=== PATIENT | female | born 1955 | race Caucasian/White ===

== ENCOUNTER 2017-01-21 17:03 | Inpatient (IN) ==
--- NOTE | 2017-01-21 17:18 | Emergency Department Note ---
Disposition Clinical Impression: Chest pain Disposition: Still a Patient Condition: Good Referrals: Tara Maciel CNP [Primary Care Provider] - Chest Pain HPI - General Stated Complaint: chest pain Time Seen by Provider: 01/21/17 17:12 Vital Signs Reviewed: Yes Nursing Notes Reviewed: Yes - History of Present Illness HPI Narrative: She comes in complaining of chest pain progressively getting worse. Patient has shortness of breath and feels the pain is radiating to her back. Patient patient states that she feels as his symptoms are worsening. Patient does not have primary care physician follow-up for this problem. Patient patient denies prior history of radiation of the pain. She feels a the characteristics of the chest pain or change in for she has had the past. Patient denies dizziness denies vision changes. Patient denies headache associated. Patient denies any aggravating alleviating factor besides the chest pain with deep inspiration. - Related Data Home Medications Medication Instructions Recorded Confirmed Advair 500-50 Diskus 07/26/15 07/26/15 Aspirin 07/26/15 07/26/15 B Complex & C No.20/Folic Acid 07/26/15 07/26/15 Baclofen 07/26/15 07/26/15 Bee Tabs 07/26/15 07/26/15 Flonase 07/26/15 07/26/15 Ibuprofen 07/26/15 07/26/15 Ketorolac 07/26/15 07/26/15 Lidoderm 07/26/15 07/26/15 Lisinopril 07/26/15 07/26/15 Loratadine 07/26/15 07/26/15 Meclizine 07/26/15 07/26/15 Meloxicam 07/26/15 07/26/15 Tylenol 07/26/15 07/26/15 Zolmitriptan 07/26/15 07/26/15 Previous Rx's Medication Instructions Recorded Promethazine [Phenergan] 25 mg PO Q8HR PRN #12 tablet 07/26/15 Benzonatate [Tessalon] 200 mg PO TID PRN #30 capsule 02/27/16 GuaiFENesin ER [Mucinex] 1,200 mg PO BID #20 tbbp.12hr 02/27/16 Azithromycin [Zithromax] 1 applic PO DAILY #6 tablet 12/26/16 Fluconazole [Diflucan] 150 mg PO DAILY #1 tab 12/26/16 Allergies Allergy/AdvReac Type Severity Reaction Status Date / Time calcium [From DHEA] Allergy Hives Verified 02/13/16 19:00 calcium carbonate [From DHEA] Allergy Hives Verified 02/13/16 19:00 prasterone (DHEA) [From DHEA] Allergy Hives Verified 02/13/16 19:00 prochlorperazine Allergy Hives Verified 02/13/16 19:00 [From Compazine] sumatriptan [From Imitrex] Allergy Hives Verified 02/13/16 19:00 All systems ED: reviewed and negative except as stated. Chest Pain PMH - Past Medical History Medical history: Reports: other Surgical history: Reports: no surgical history Psychiatric history: Reports: no psych history ENGINE BUILDER history: Reports: no ENGINE BUILDER history - Social History Smoking Status: Never smoker Alcohol use: Reports: none Drug use: Reports: none Physical Exam - General Limitations: no limitations General appearance: alert, in no apparent distress - Head Head exam: atraumatic, normocephalic, normal inspection - Eye Eye exam: Present: normal appearance, PERRL, EOMI - ENT ENT exam: normal exam, normal oropharynx, mucous membranes moist - Neck Neck exam: Present: normal inspection, full ROM, trachea midline - Chest Chest inspection: Present: normal inspection, symmetric chest wall rise - Respiratory Respiratory exam: Present: wheezes (Mild diffuse wheeze. No increased work of breathing noted.) - Cardiovascular Cardiovascular exam: Present: regular rate, normal rhythm, normal heart sounds - Abdominal Exam Abdominal exam: Present: soft, Non-Tender. Absent: tenderness, distention, guarding, rebound, rigidity - Extremities Exam Extremities exam: Present: normal inspection, full ROM. Absent: tenderness, pedal edema - Back Exam Back exam: Present: normal inspection, full ROM. Absent: tenderness - Neurological Exam Neurological exam: Present: alert, oriented X3 - Psychiatric Psychiatric exam: Present: normal affect, normal mood - Skin Skin exam: Present: warm, dry, intact, normal color Course Course Narrative: Awaiting results the CTA chest. If negative will admit to hospital service for chest pain. Vital Signs Temperature 98.7 F 01/21/17 17:15 Pulse Rate 85 01/21/17 17:15 Respiratory Rate 16 01/21/17 17:15 Blood Pressure 172/99 01/21/17 17:15 O2 Sat by Pulse Oximetry 96 01/21/17 17:15 Temperature 98.7 F 01/21/17 17:15 Pulse Rate 80 01/21/17 17:59 Respiratory Rate 18 01/21/17 18:11 Blood Pressure 122/83 01/21/17 17:59 O2 Sat by Pulse Oximetry 95 01/21/17 18:11 Oxygen Delivery Oxygen Delivery Nasal Cannula Chest Pain - Differential Diagnosis Likely: pneumothorax, unstable angina pectoris, atypical chest pain, st elevation myocardial infraction, chest pain - Lab Data Lab results reviewed: Yes I reviewed the patient's lab results. Result diagrams: 01/21/17 17:47 01/21/17 17:47 Lab Results 01/21/17 01/21/17 01/21/17 Range/Units 17:47 17:47 17:47 WBC 10.5 (4.3-11.1) K/mcL RBC 4.82 (3.82-4.97) M/mcL Hgb 14.9 (11.5-15.4) g/dL Hct 45.3 H (35.3-44.9) % MCV 94.0 (83.0-100.0) fL MCH 30.9 (28.0-33.3) pg MCHC 32.9 (31.6-35.5) g/dL RDW 13.6 (11.5-14.5) % Plt Count 362 (140-400) K/mcL MPV 10.1 (9.4-12.4) fL Immature Gran % 0.4 (0-4) % Seg Neutrophils % 78.4 % Lymphocytes % 14.0 % Monocytes % 5.7 % Eosinophils % 1.0 % Basophils % 0.5 % Neutrophils # 8.2 (1.6-8.9) K/mcL Lymphocytes # 1.5 (0.6-4.6) K/mcL Monocytes # 0.6 (0.0-1.3) K/mcL Eosinophils # 0.1 (0.0-0.6) K/mcL Basophils # 0.1 (0.0-0.2) K/mcL D-Dimer (0-500) ng/mLFEU Sodium 142 (136-145) mEq/L Potassium 4.0 (3.5-4.5) mEq/L Chloride 108 (98-109) mEq/L Carbon Dioxide 24 (19-29) mEq/L BUN 16 (7-20) mg/dL Creatinine 0.83 (0.57-1.11) mg/dL Est GFR ( Amer) > 60 (> 60) Est GFR (Non-Af Amer) > 60 (> 60) BUN/Creatinine Ratio 19 (6-26) Glucose 93 (70-99) mg/dL Calculated Osmolality 295 (280-300) Calcium 9.2 (8.6-10.8) mg/dL Total Bilirubin 0.6 (0.2-1.2) mg/dL AST 17 (5-34) Units/L ALT 20 (0-55) Units/L Alkaline Phosphatase 84 (38-126) Units/L Troponin I 0.00 (0-0.03) ng/mL Serum Total Protein 7.1 (6.0-8.3) g/dL Albumin 3.3 L (3.5-5.0) g/dL Globulin 3.8 H (2.4-3.5) g/dL Albumin/Globulin Ratio 0.9 L (1.1-2.2) 01/21/ Range/Units 17:47 WBC (4.3-11.1) K/mcL RBC (3.82-4.97) M/mcL Hgb (11.5-15.4) g/dL Hct (35.3-44.9) % MCV (83.0-100.0) fL MCH (28.0-33.3) pg MCHC (31.6-35.5) g/dL RDW (11.5-14.5) % Plt Count (140-400) K/mcL MPV (9.4-12.4) fL Immature Gran % (0-4) % Seg Neutrophils % % Lymphocytes % % Monocytes % % Eosinophils % % Basophils % % Neutrophils # (1.6-8.9) K/mcL Lymphocytes # (0.6-4.6) K/mcL Monocytes # (0.0-1.3) K/mcL Eosinophils # (0.0-0.6) K/mcL Basophils # (0.0-0.2) K/mcL D-Dimer 610 H (0-500) ng/mLFEU Sodium (136-145) mEq/L Potassium (3.5-4.5) mEq/L Chloride (98-109) mEq/L Carbon Dioxide (19-29) mEq/L BUN (7-20) mg/dL Creatinine (0.57-1.11) mg/dL Est GFR ( Amer) (> 60) Est GFR (Non-Af Amer) (> 60) BUN/Creatinine Ratio (6-26) Glucose (70-99) mg/dL Calculated Osmolality (280-300) Calcium (8.6-10.8) mg/dL Total Bilirubin (0.2-1.2) mg/dL AST (5-34) Units/L ALT (0-55) Units/L Alkaline Phosphatase (38-126) Units/L Troponin I (0-0.03) ng/mL Serum Total Protein (6.0-8.3) g/dL Albumin (3.5-5.0) g/dL Globulin (2.4-3.5) g/dL Albumin/Globulin Ratio (1.1-2.2) - Radiology Data Radiology results reviewed: Yes I reviewed the patient's radiology results. Chest X-Ray 01/21/17 17:17 IMPRESSION: 1. No acute cardiopulmonary disease. D/ / Asif De Leon MD / Asif De Leon MD Interpreting Provider: Asif De Leon MD chest is pending. - EKG Data EKG attestation: Yes I reviewed and interpreted this EKG. EKG shows normal: sinus rhythm Rate: normal Rhythm: NSR
[2017-01-21] MEDS ORDERED: methylPREDNISolone 125 MG/2 ML VIAL IV ONE (17:50)
[2017-01-21] MEDS ORDERED: Ipratropium/Albuterol Neb 3 ML IH ONE (17:50)
[2017-01-21 17:57] LABS: Basophils # 0.1 K/mcL (0.0-0.2); Basophils % 0.5 %; Eosinophils # 0.1 K/mcL (0.0-0.6); Hematocrit 45.3 % (35.3-44.9); Hemoglobin 14.9 g/dL (11.5-15.4); Immature Granulocytes % 0.4 % (0-4); Lymphocytes # 1.5 K/mcL (0.6-4.6); Mean Corpuscular HGB Conc 32.9 g/dL (31.6-35.5); Mean Corpuscular Hemoglobin 30.9 pg (28.0-33.3); Mean Platelet Volume 10.1 fL (9.4-12.4); Monocytes # 0.6 K/mcL (0.0-1.3); Monocytes % 5.7 %; Neutrophils # 8.2 K/mcL (1.6-8.9); Platelet Count 362 K/mcL (140-400); Red Blood Count 4.82 M/mcL (3.82-4.97); Red Cell Distribution Width 13.6 % (11.5-14.5); Segmented Neutrophils % 78.4 %
[2017-01-21 18:12] LABS: Alanine Aminotransferase 20 Units/L (0-55); Albumin 3.3 g/dL (3.5-5.0); Albumin/Globulin Ratio 0.9 (1.1-2.2); Alkaline Phosphatase 84 Units/L (38-126); Aspartate Amino Transferase 17 Units/L (5-34); BUN/Creatinine Ratio 19 (6-26); Bilirubin,Total 0.6 mg/dL (0.2-1.2); Blood Urea Nitrogen 16 mg/dL (7-20); Calcium 9.2 mg/dL (8.6-10.8); Carbon Dioxide 24 mEq/L (19-29); Chloride 108 mEq/L (98-109); Globulin 3.8 g/dL (2.4-3.5); Glucose 93 mg/dL (70-99); Osmolality,Calculated 295 (280-300); Sodium 142 mEq/L (136-145); Total Protein 7.1 g/dL (6.0-8.3); eGFR For African Americans > 60 (> 60); eGFR For Non-African Americans > 60 (> 60)
[2017-01-21] MEDS ORDERED: *HR* Morphine 2 MG/ML SYRINGE IV ONE (20:38)
--- NOTE | 2017-01-21 21:52 | Emergency Department Note ---
START Narrative - START START: Patient is a 61-year-old female who is being admitted for chest pain this evening. Patient had a CT chest results pending at the end of Dr. Darya jon and asked me to follow-up on the results and inform the patient. CT chest results interpreted by radiology was negative for PE but does show some left lower lobe atelectasis suspicious for mucous plugging. I did inform the patient at bedside of her CT results and that we will proceed with admission for further evaluation of her chest pain. Patient is currently resting comfortably with stable vital signs and asymptomatic at this time.
[2017-01-21] MEDS ORDERED: Albuterol 2.5 MG/3 ML NEBULIZER IH PRN (23:12)
[2017-01-21] MEDS ORDERED: Nicotine 21 MG PATCH.TD24 TD PRN (23:12)
[2017-01-21] MEDS ORDERED: Benzonatate 100 MG CAPSULE PO PRN (23:12)
[2017-01-21] MEDS ORDERED: Naloxone 0.4 MG/ML INJ IVP PRN (23:12)
[2017-01-21] MEDS ORDERED: *HR* Promethazine 25 MG/ML VIAL IVP PRN (23:21)
--- NOTE | 2017-01-21 23:28 | Internal Med History&Physical ---
Date of Encounter: 01/21/17 Time of Encounter: 23:00 Assessment and Plan (1) Chest pain, rule out acute myocardial infarction Status: Acute . (2) Chest pain with low risk of acute coronary syndrome Status: Acute . (3) Acute chest wall pain Status: Acute . (4) Atelectasis of left lung Status: Acute . (5) Mucus plugging of bronchi Status: Resolved . (6) Morbid obesity with BMI of 40.0-44.9, adult Status: Chronic . (7) DARCIE (obstructive sleep apnea) Status: Chronic . (8) Acute respiratory failure with hypoxia Status: Acute . (9) Discoid atelectasis Status: Acute . (10) Acute bronchitis and bronchiolitis Status: Acute . Internal Medicine - H&P: HPI Chief complaint: Chest pain Admitted From: Emergency Dept Plans for Post Hospital Care: Home History of present illness: Ms. Pastor is a 61 year old female is admitted with chief complaint of acute chest pain beginning the evening of presentation. She completed the CTA with rule out of pulmonary embolus as a source for her pain following negative troponin and EKG findings. CT however did not reveal evidence of left lower lobe atelectasis suspicious for mucous plugging and possible superimposed infection." The pain is progressively worsening with radiation into the back. Denies any specific exacerbating or alleviating factors. No evidence for hemoptysis reported. Audible wheezing has been noted. Additional findings noted to have reactive hypertension. CBC with differential, comprehensive metabolic panel, troponin measurement were benign. D-dimer was 610. EKG normal sinus rhythm. Patient will be admitted to undergo further evaluation and disposition. Past Med Surg Social Fam HX - Past Medical History Source: old records reviewed Medical history: arthritis (Chronic back pain), asthma, COPD (DARCIE), GERD, hypertension, migraine, other (Allergic rhinitis. Irritable bowel syndrome; chronic constipation.) Psychiatric history: anxiety, depression, other - Past Surgical History Surgical History: appendectomy, cholecystectomy, herniorrhaphy, hysterectomy, sinus surgery (Nasal surgery.), FER/BSO, other - Social History Smoking Status: Current some day smoker Packs per day: ~38pk-yrs Smokeless Tobacco Status: No Alcohol use: none Drug use: none Occupational status: unemployed Current living situation: Home, With Family Activity Level: Independent ambulation, Mostly sedentary Recent Out of Country Travel Within the Last 8 Weeks: No Exposure or Possible Exposure to Illness During Travel: No - Family History Mother Hx Family Cardiac Disorders: Yes Hx Family Respiratory Disorders: Yes (copd) Internal Medicine - H&P: Meds Albuterol Sulfate [Ventolin Hfa] 2 puff IH Q4H PRN 01/21/17 [History] Baclofen [Lioresal] 10 mg PO TID 01/21/17 [History] Cyanocobalamin (Vitamin B-12) [Vitamin B12] 1,000 mcg PO DAILY 01/21/17 [History ] Diltiazem CD (24hr) [Cardizem CD] 180 mg PO DAILY 01/21/17 [History] Escitalopram [Lexapro] 10 mg PO DAILY 01/21/17 [History] Fluticasone Propionate Nasal [Flonase] 50 mcg NS DAILY 01/21/17 [History] Fluticasone/Salmeterol [Advair 500-50 Diskus] 1 each IH BID 01/21/17 [History] Lidocaine Patch [Lidoderm 5% patch] 1 each TP DAILY 01/21/17 [History] Linaclotide [Linzess] 290 mcg PO QAM 01/21/17 [History] Lisinopril [Zestril] 10 mg PO DAILY 01/21/17 [History] Loratadine [Claritin] 10 mg PO DAILY 01/21/17 [History] Meloxicam 7.5 mg PO DAILY 01/21/17 [History] Montelukast [Singulair] 10 mg PO HS 01/21/17 [History] Multivitamin [Multi-Day Vitamins] 1 each PO DAILY 01/21/17 [History] Omeprazole [PriLOSEC] 20 mg PO DAILY 01/21/17 [History] Pravastatin Sodium [Pravachol] 40 mg PO HS 01/21/17 [History] Promethazine [Phenergan] 25 mg PO Q6H PRN 01/21/17 [History] Promethazine [Phenergan] 25 mg RC Q8H PRN 01/21/17 [History] Psyllium Husk [Daily Fiber] 1.56 gm PO BID 01/21/17 [History] Temazepam [Restoril] 15 mg PO HS 01/21/17 [History] Tiotropium [Spiriva] 18 mcg IH QAM 01/21/17 [History] Zolmitriptan [Zomig] 2.5 mg PO DAILY PRN 01/21/17 [History] Benzonatate [Tessalon] 200 mg PO TID PRN #30 capsule 01/28/17 [Rx] Diazepam [Valium] 5 mg PO TID PRN #15 tablet 01/28/17 [Rx] GuaiFENesin ER [Mucinex] 600 mg PO BID #20 tbbp.12hr 01/28/17 [Rx] Levofloxacin 750 mg PO Q24H #12 tablet 01/28/17 [Rx] Oxycodone HCl 10 mg PO Q6H PRN #15 tab 01/28/17 [Rx] PredniSONE 10 mg PO DAILY #41 tablet 01/28/17 [Rx] Allergies calcium [From DHEA] Allergy (Verified 02/13/16 19:00) Hives calcium carbonate [From DHEA] Allergy (Verified 02/13/16 19:00) Hives prasterone (DHEA) [From DHEA] Allergy (Verified 02/13/16 19:00) Hives prochlorperazine [From Compazine] Allergy (Verified 02/13/16 19:00) Hives sumatriptan [From Imitrex] Allergy (Verified 02/13/16 19:00) Hives All Systems PM: A 10-system review of systems was performed and is negative for pertinent findings except as documented above in the HPI. - Constitutional Constitutional: as per HPI, no chills, no fever(s), no night sweats - EENT Eyes: as per HPI, no change in vision, no discharge, no pain, no photophobia Nose, mouth and throat: as per HPI, no dysphagia, no nasal discharge, no neck pain, no sore throat - Cardiovascular Cardiovascular ROS IM: as per HPI, chest pain, dyspnea, dyspnea on exertion, no claudication, no diaphoresis, no edema, no lightheadedness, no orthopnea, no palpitations, no paroxysmal nocturnal dyspnea, no syncope - Respiratory Respiratory: as per HPI, cough, dyspnea, dyspnea on exertion, pain on inspiration, chest congestion, pain with cough, no hemoptysis, no wheezing, no excessive phlegm production - Gastrointestinal Gastrointestinal: as per HPI, no abdominal pain, no diarrhea, no hematemesis, no hematochezia, no melena, no nausea, no vomiting - Genitourinary Genitourinary: as per HPI, no change in urinary stream, no dysuria, no flank pain, no hematuria Menstruation: as per HPI, post hysterectomy - Musculoskeletal Musculoskeletal ROS IM: as per HPI, back pain, no numbness, no tingling - Integumentary Integumentary IM: as per HPI, no rash, no unusual bruising - Neurological Neurological ROS: as per HPI, headache(s), other, no confusion, no convulsions, no focal weakness, no numbness, no tingling, no tremor(s) - Psychiatric Psychiatric: as per HPI - Endocrine Endocrine IM: as per HPI - Hematologic/Lymphatic Hematologic/Lymphatic: as per HPI, no easy bruising - Allergic/Immunologic Allergic/Immunologic: as per HPI - Constitutional Vitals: Temp Pulse Resp BP Pulse Ox 98.7 F 80 18 122/83 95 01/21/17 17:15 01/21/17 17:59 01/21/17 18:11 01/21/17 17:59 01/21/17 18:11 Vital Signs Temp Pulse Resp BP Pulse Ox 01/21/17 19:59 84 16 111/94 94 L 01/21/17 19:29 81 16 109/58 94 L 01/21/17 18:59 94 L 01/21/17 18:11 18 95 01/21/17 17:59 80 16 122/83 92 L 01/21/17 17:15 98.7 F 85 16 172/99 96 Intake and Output 01/21/17 01/21/17 01/21/17 07:59 15:59 23:59 Other: Weight 109.316 kg Patient Weight 01/21/17 23:59 Weight 109.316 kg Allergies Allergy/AdvReac Type Severity Reaction Status Date / Time calcium [From DHEA] Allergy Hives Verified 02/13/16 19:00 calcium carbonate [From DHEA] Allergy Hives Verified 02/13/16 19:00 prasterone (DHEA) [From DHEA] Allergy Hives Verified 02/13/16 19:00 prochlorperazine Allergy Hives Verified 02/13/16 19:00 [From Compazine] sumatriptan [From Imitrex] Allergy Hives Verified 02/13/16 19:00 General appearance: Present: mild distress, A&O X 3, morbidly obese - Head Head exam: Present: atraumatic, normocephalic - Eye Eye exam: Present: EOMI, PERRL, conjuntiva pink, sclera anicteric Pupils: Present: normal accommodation, PERRL - ENT ENT exam: Present: mucous membranes moist, normal oropharynx - Neck Neck exam general surgery: Present: supple, trachea midline. Absent: lymphadenopathy - Respiratory Respiratory exam: Present: chest wall tenderness, decreased breath sounds, wheezes. Absent: accessory muscle use, CTAB, rales, rhonchi - Cardiovascular Cardiovascular exam: Present: distant heart sounds, RRR, +S1, +S2. Absent: diastolic murmur, gallop, rubs, systolic murmur - GI/Abdominal GI/Abdominal exam: Present: normal bowel sounds, soft, no peritoneal signs. Absent: distended, tenderness - Extremities Exam Extremities exam: Present: warm, radial pulses palpable and symetrical. Absent : calf tenderness, cyanotic, pedal edema - Neurological Exam Neurological exam: Present: alert, CN II-XII intact, oriented X3, no focal deficits. Absent: pronater drift, facial droop, speech deficit - Psychiatric Psychiatric exam: Present: normal affect, normal mood - Skin Skin exam: Present: dry, intact Internal Med - H&P Results - Labs CBC & Chem 7: 01/28/17 02:54 01/27/17 04:00 Labs: Short CBC 01/21/17 Range/Units 17:47 WBC 10.5 (4.3-11.1) K/mcL Hgb 14.9 (11.5-15.4) g/dL Hct 45.3 H (35.3-44.9) % Plt Count 362 (140-400) K/mcL Neutrophils # 8.2 (1.6-8.9) K/mcL BMP 01/21/17 Range/Units 17:47 Sodium 142 (136-145) mEq/L Potassium 4.0 (3.5-4.5) mEq/L Chloride 108 (98-109) mEq/L Carbon Dioxide 24 (19-29) mEq/L BUN 16 (7-20) mg/dL Creatinine 0.83 (0.57-1.11) mg/dL Glucose 93 (70-99) mg/dL Calcium 9.2 (8.6-10.8) mg/dL Cardiac Enzymes 01/21/17 Range/Units 17:47 Troponin I 0.00 (0-0.03) ng/mL Liver Function 01/21/17 Range/Units 17:47 Total Bilirubin 0.6 (0.2-1.2) mg/dL AST 17 (5-34) Units/L ALT 20 (0-55) Units/L Alkaline Phosphatase 84 (38-126) Units/L Albumin 3.3 L (3.5-5.0) g/dL Abnormal lab results Hct 45.3 % (35.3-44.9) H 01/21/17 17:47 D-Dimer 610 ng/mLFEU (0-500) H 01/21/17 17:47 Albumin 3.3 g/dL (3.5-5.0) L 01/21/17 17:47 Globulin 3.8 g/dL (2.4-3.5) H 01/21/17 17:47 Albumin/Globulin Ratio 0.9 (1.1-2.2) L 01/21/17 17:47 Laboratory Results WBC 10.5 K/mcL (4.3-11.1) 01/21/17 17:47 RBC 4.82 M/mcL (3.82-4.97) 01/21/17 17:47 Hgb 14.9 g/dL (11.5-15.4) 01/21/17 17:47 Hct 45.3 % (35.3-44.9) H 01/21/17 17:47 MCV 94.0 fL (83.0-100.0) 01/21/17 17:47 MCH 30.9 pg (28.0-33.3) 01/21/17 17:47 MCHC 32.9 g/dL (31.6-35.5) 01/21/17 17:47 RDW 13.6 % (11.5-14.5) 01/21/17 17:47 Plt Count 362 K/mcL (140-400) 01/21/17 17:47 MPV 10.1 fL (9.4-12.4) 01/21/17 17:47 Immature Gran % 0.4 % (0-4) 01/21/17 17:47 Seg Neutrophils % 78.4 % 01/21/17 17:47 Lymphocytes % 14.0 % 01/21/17 17:47 Monocytes % 5.7 % 01/21/17 17:47 Eosinophils % 1.0 % 01/21/17 17:47 Basophils % 0.5 % 01/21/17 17:47 Neutrophils # 8.2 K/mcL (1.6-8.9) 01/21/17 17:47 Lymphocytes # 1.5 K/mcL (0.6-4.6) 01/21/17 17:47 Monocytes # 0.6 K/mcL (0.0-1.3) 01/21/17 17:47 Eosinophils # 0.1 K/mcL (0.0-0.6) 01/21/17 17:47 Basophils # 0.1 K/mcL (0.0-0.2) 01/21/17 17:47 D-Dimer 610 ng/mLFEU (0-500) H 01/21/17 17:47 Sodium 142 mEq/L (136-145) 01/21/17 17:47 Potassium 4.0 mEq/L (3.5-4.5) 01/21/17 17:47 Chloride 108 mEq/L (98-109) 01/21/17 17:47 Carbon Dioxide 24 mEq/L (19-29) 01/21/17 17:47 BUN 16 mg/dL (7-20) 01/21/17 17:47 Creatinine 0.83 mg/dL (0.57-1.11) 01/21/17 17:47 Est GFR ( Amer) > 60 (> 60) 01/21/17 17:47 Est GFR (Non-Af Amer) > 60 (> 60) 01/21/17 17:47 BUN/Creatinine Ratio 19 (6-26) 01/21/17 17:47 Glucose 93 mg/dL (70-99) 01/21/17 17:47 Calculated Osmolality 295 (280-300) 01/21/17 17:47 Calcium 9.2 mg/dL (8.6-10.8) 01/21/17 17:47 Total Bilirubin 0.6 mg/dL (0.2-1.2) 01/21/17 17:47 AST 17 Units/L (5-34) 01/21/17 17:47 ALT 20 Units/L (0-55) 01/21/17 17:47 Alkaline Phosphatase 84 Units/L (38-126) 01/21/17 17:47 Troponin I 0.00 ng/mL (0-0.03) 01/21/17 17:47 Serum Total Protein 7.1 g/dL (6.0-8.3) 01/21/17 17:47 Albumin 3.3 g/dL (3.5-5.0) L 01/21/17 17:47 Globulin 3.8 g/dL (2.4-3.5) H 01/21/17 17:47 Albumin/Globulin Ratio 0.9 (1.1-2.2) L 03 17:47 Impressions Chest X-Ray 01/21/17 17:17 IMPRESSION: 1. No acute cardiopulmonary disease. D/ / Asif De Leon MD / Asif De Leon MD Interpreting Provider: Asif De Leon MD Chest CTA 01/21/17 18:28 IMPRESSION: No evidence of pulmonary embolism. Lobar collapse of the left lower lobe, may be related to mucous plugging. Superimposed infection is difficult to exclude. Recommend follow-up to resolution and exclude endobronchial lesions. Discoid atelectasis at the bilateral lung bases. D/ / Shadi Gongora MD / Shadi Gongora MD Interpreting Provider: Shadi Gongora MD - Attending Attestation My signature below is to certify that this patient is under my care and that I, or nurse practitioner, or a physician's greenhouse assistant, or Resident Physician working with me, has had a [id number] encounter with this patient. Allergies calcium [From DHEA] Allergy (Verified 02/13/16 19:00) Hives calcium carbonate [From DHEA] Allergy (Verified 02/13/16 19:00) Hives prasterone (DHEA) [From DHEA] Allergy (Verified 02/13/16 19:00) Hives prochlorperazine [From Compazine] Allergy (Verified 02/13/16 19:00) Hives sumatriptan [From Imitrex] Allergy (Verified 02/13/16 19:00) Hives Home Medications Medication Instructions Recorded Confirmed Type Albuterol Sulfate [Ventolin Hfa] 2 puff IH Q4H PRN 01/21/17 01/21/17 History Baclofen [Lioresal] 10 mg PO TID 01/21/17 01/21/17 History Cyanocobalamin (Vitamin B-12) 1,000 mcg PO DAILY 01/21/17 01/21/17 History [Vitamin B12] Diazepam [Valium] 5 mg PO TID PRN 01/21/17 01/21/17 History Diltiazem CD (24hr) [Cardizem CD] 180 mg PO DAILY 01/21/17 01/21/17 History Escitalopram [Lexapro] 10 mg PO DAILY 01/21/17 01/21/17 History Fluticasone Propionate Nasal 50 mcg NS DAILY 01/21/17 01/21/17 History [Flonase] Fluticasone/Salmeterol [Advair 1 each IH BID 01/21/17 01/21/17 History 500-50 Diskus] Lidocaine Patch [Lidoderm 5% patch] 1 each TP DAILY 01/21/17 01/21/17 History Linaclotide [Linzess] 290 mcg PO QAM 01/21/17 01/21/17 History Lisinopril [Zestril] 10 mg PO DAILY 01/21/17 01/21/17 History Loratadine [Claritin] 10 mg PO DAILY 01/21/17 01/21/17 History Meloxicam [Meloxicam] 7.5 mg PO DAILY 01/21/17 01/21/17 History Montelukast [Singulair] 10 mg PO HS 01/21/17 01/21/17 History Multivitamin [Multi-Day Vitamins] 1 each PO DAILY 01/21/17 01/21/17 History Omeprazole [PriLOSEC] 20 mg PO DAILY 01/21/17 01/21/17 History Pravastatin Sodium [Pravachol] 40 mg PO HS 01/21/17 01/21/17 History Promethazine [Phenergan] 25 mg PO Q6H PRN 01/21/17 01/21/17 History Promethazine [Phenergan] 25 mg RC Q8H PRN 01/21/17 01/21/17 History Psyllium Husk [Daily Fiber] 1.56 gm PO BID 01/21/17 01/21/17 History Temazepam [Restoril] 15 mg PO HS 01/21/17 01/21/17 History Tiotropium [Spiriva] 18 mcg IH QAM 01/21/17 01/21/17 History Zolmitriptan [Zomig] 2.5 mg PO DAILY PRN 01/21/17 01/21/17 History I & O 01/18/17 01/19/17 01/20/17 01/21/17 23:59 23:59 23:59 23:59 Weight 109.316 kg Medications Acetaminophen (Tylenol) 650 mg PO Q6HR PRN PRN Reason: Mild Pain (1-3) Stop: 07/23/17 23:13 Acetylcysteine (Acetylcysteine 10%) 2 ml IH [id number] [facility] Stop: 07/24/17 07:01 Albuterol Sulfate (Proventil Neb) 2.5 mg IH Q2H PRN PRN Reason: Shortness Of Breath/Wheezing Stop: 07/23/17 23:13 Albuterol/Ipratropium (Duoneb) 3 ml IH QIDR CLYDE Stop: 07/23/17 23:16 Baclofen (Lioresal) 10 mg PO TID [facility] Stop: 07/24/17 09:01 Benzonatate (Tessalon) 200 mg PO TID PRN PRN Reason: Cough Stop: 07/23/17 23:13 Diazepam (Valium) 5 mg PO TID PRN PRN Reason: Anxiety Stop: 07/23/17 23:20 Diltiazem HCl (Cardizem Cd) 180 mg PO DAILY [facility] Stop: 07/24/17 09:01 Docusate Sodium (Colace) 100 mg PO BID PRN PRN Reason: Constipation Stop: 07/23/17 23:13 Escitalopram Oxalate (Lexapro) 10 mg PO DAILY [facility] Stop: 07/24/17 09:01 Fluticasone Propionate (Flonase) 50 mcg NS DAILY [facility] PRN Reason: Protocol Stop: 07/24/17 09:01 Guaifenesin (Mucinex) 600 mg PO BID [facility] Stop: 07/24/17 09:01 Guaifenesin (Mucinex) 1,200 mg PO ONCE ONE Stop: 01/21/17 23:13 Sodium Chloride (0.9 % Sodium Chloride) 1,000 mls @ 50 mls/hr IVC .Q20H [facility] Stop: 07/23/17 23:16 Lisinopril (Zestril) 10 mg PO DAILY [facility] PRN Reason: Protocol Stop: 07/24/17 09:01 Loratadine (Claritin) 10 mg PO DAILY [facility] PRN Reason: Protocol Stop: 07/24/17 09:01 Meloxicam (Mobic) 7.5 mg PO DAILY [facility] Stop: 07/24/17 09:01 Montelukast Sodium (Singulair) 10 mg PO HS [facility] Stop: 07/24/17 21:01 Morphine Sulfate (Morphine Sulfate) 2 mg IVP Q4HR PRN PRN Reason: Severe Pain (7-10) Stop: 07/23/17 23:13 Naloxone HCl (Narcan) 0.4 mg IVP Q2MIN PRN PRN Reason: Opioid Reversal Stop: 07/23/17 23:13 Nicotine (Nicoderm) 21 mg TD DAILY PRN PRN Reason: Nicotine Cravings Stop: 07/23/17 23:16 Non-Formulary Medication (Linaclotide [Linzess]) 290 mcg PO QAM [facility] Stop: 07/24/17 09:01 Non-Formulary Medication (Pravastatin Sodium [Pravachol]) 40 mg PO HS [facility] Stop: 07/24/17 21:01 Non-Formulary Medication (Psyllium Husk [Daily Fiber]) 1.56 gm PO BID [facility] Stop: 07/24/17 09:01 Omeprazole (Prilosec) 20 mg PO DAILY@0630 [facility] PRN Reason: Protocol Stop: 07/24/17 06:31 Oxycodone HCl (Roxicodone) 10 mg PO Q6HR PRN PRN Reason: Moderate Pain (4-6) Stop: 07/23/17 23:13 Prednisone (Prednisone) 40 mg PO DAILY [facility] Stop: 07/24/17 09:01 Promethazine HCl (Phenergan) 12.5 mg IVP Q4HR PRN PRN Reason: Nausea And Vomiting Stop: 07/24/17 00:01 Temazepam (Restoril) 15 mg PO HS [facility] PRN Reason: Protocol Stop: 07/24/17 21:01 Discontinued Medications Albuterol/Ipratropium (Duoneb) 3 ml IH ONCE ONE PRN Reason: Protocol Stop: 01/21/17 17:51 Last Admin: 01/21/17 18:11 Dose: 3 ml Hyaluronidase (Vitrase) 200 unit SQ ONCE ONE Stop: 01/21/17 20:18 Last Admin: 01/21/17 23:07 Dose: 200 unit Methylprednisolone (Solu-Medrol) 125 mg IV ONCE ONE Stop: 01/21/17 17:51 Last Admin: 01/21/17 21:33 Dose: 125 mg Morphine Sulfate (Morphine Sulfate) 2 mg IV ONCE ONE Stop: 01/21/17 20:39 Last Admin: 01/21/17 21:33 Dose: 2 mg Re-Assess: LAURA Pain Assessment Document 01/21/17 22:03 TAB (Rec: 01/21/17 23:06 TAB [id number]) Patient's Stated Pain Level Pain Intensity 6 Nursing Notes 01/21/17 21:29 Transport Report by Farida Sutton Date: 01/21/17 Transport Method: Ambulatory calcium [From DHEA] Allergy (Verified 02/13/16 19:00) Hives calcium carbonate [From DHEA] Allergy (Verified 02/13/16 19:00) Hives prasterone (DHEA) [From DHEA] Allergy (Verified 02/13/16 19:00) Hives prochlorperazine [From Compazine] Allergy (Verified 02/13/16 19:00) Hives sumatriptan [From Imitrex] Allergy (Verified 02/13/16 19:00) Hives Resuscitation Status 01/21/17 17:16 ECG 12 lead ECG [ECG] Stat Mode Of Transportation: Ambulatory Reason For Exam: chest pain Exam Performed At:: [place] 01/21/17 18:28 CTA chest [CT angio chest] [CT] Stat Comment: Mode Of Transportation: Ambulatory Reason For Exam: Shortness of breath elevated d-dimer Order Doctor: Andrew Lackey Exam Performed At:: [facility] Allergic to Contrast: No Oxygen: 2 Mental Status: Fall Risk: Isolation: Nurse Required for Transport: No ___ Yes Limb Restrictions: No ___ Yes Behavioral issue/Risk for Elopement: No ___ Yes Telemetry Room Notification: Destination: MRI XRAY STRESS ULTRASOUND CT DIALYSIS ENDO OTHER: Depart Time: Nurse: Transporter: Arrive Time: Received by: ___ Return Time: Nurse: Transporter: ] Initialized on 01/21/17 21:29 - END OF NOTE 01/21/17 18:46 Transport Report by Eliel Mayberry Date: 01/21/17 Transport Method: Ambulatory calcium [From DHEA] Allergy (Verified 02/13/16 19:00) Hives calcium carbonate [From DHEA] Allergy (Verified 02/13/16 19:00) Hives prasterone (DHEA) [From DHEA] Allergy (Verified 02/13/16 19:00) Hives prochlorperazine [From Compazine] Allergy (Verified 02/13/16 19:00) Hives sumatriptan [From Imitrex] Allergy (Verified 02/13/16 19:00) Hives Resuscitation Status 01/21/17 17:16 ECG 12 lead ECG [ECG] Stat Mode Of Transportation: Ambulatory Reason For Exam: chest pain Exam Performed At:: [facility] 01/21/17 18:28 CTA chest [CT angio chest] [CT] Stat Comment: Mode Of Transportation: Ambulatory Reason For Exam: Shortness of breath elevated d-dimer Order Doctor: Andrew Lackey Exam Performed At:: [place] Allergic to Contrast: No Oxygen: 2 Mental Status: Fall Risk: Isolation: Nurse Required for Transport: No ___ Yes Limb Restrictions: No ___ Yes Behavioral issue/Risk for Elopement: No ___ Yes Telemetry Room Notification: Destination: MRI XRAY STRESS ULTRASOUND CT DIALYSIS ENDO OTHER: Depart Time: Nurse: Transporter: Arrive Time: Received by: ___ Return Time: Nurse: Transporter: ] Initialized on 01/21/17 18:46 - END OF NOTE Orders 01/21/17 17:16 ECG 12 lead ECG [ECG] Stat Mode Of Transportation: Ambulatory Reason For Exam: chest pain Exam Performed At:: [place] 01/21/17 17:17 12 lead ECG assessment [RC] NOW XR chest 2V [XR] Stat Mode Of Transportation: Ambulatory Reason For Exam: Shortness of breath Exam Performed At:: [place] 01/21/17 17:47 Complete Blood Count [HEME] Stat Comment: Specimen: Send someone from the department to collect Comprehensive Metabolic Panel Stat Comment: Specimen: Send someone from the department to collect D-Dimer [COAG] Stat Comment: Specimen: Send someone from the department to collect Troponin I Stat Comment: Specimen: Send someone from the department to collect 01/21/17 17:50 Ipratropium/Albuterol Neb [Duoneb] 3 ml IH ONCE ONE MethylPREDNISolone [Solu-MEDROL] 125 mg IV ONCE ONE 01/21/17 18:28 CTA chest [CT angio chest] [CT] Stat Comment: Mode Of Transportation: Ambulatory Reason For Exam: Shortness of breath elevated d-dimer Order Doctor: Andrew Lackey Exam Performed At:: [place] Allergic to Contrast: No 01/21/17 20:17 Hyaluronidase [Vitrase] 200 unit SQ ONCE ONE 01/21/17 20:38 Morphine [Morphine Sulfate] 2 mg IV ONCE ONE 01/21/17 21:[address] Stat Comment: Reason for Visit: chest pain 01/21/17 23:12 Apply anti-embolic stockings [RC] .NOW Incentive Spirometry [RC] .6 TIMES PER HR WHILE AWAKE Vital Signs Assessment [RC] Q4H Culture,Blood [BC] Stat Quantity: 1 Specimen: Send someone from the department to collect Comment: ANNIE Source: Peripheral Venipuncture Specimen Description: Lactic Acid ([facility] Only) Stat Specimen: Send someone from the department to collect Comment: Acetaminophen [Tylenol] 650 mg PO Q6HR PRN Albuterol Neb [Proventil Neb] 2.5 mg IH Q2H PRN Benzonatate [Tessalon] 200 mg PO TID PRN Docusate [Colace] 100 mg PO BID PRN GuaiFENesin ER [Mucinex] 1,200 mg PO ONCE ONE Morphine [Morphine Sulfate] 2 mg IVP Q4HR PRN Naloxone [Narcan] 0.4 mg IVP Q2MIN PRN Nicotine Patch [Nicoderm] 21 mg TD DAILY PRN OxyCODONE Immed Rel [Roxicodone] 10 mg PO Q6HR PRN Resuscitation Status: Active [RES] Routine Resuscitation Status: Full Code Comment: 01/21/17 23:14 Bed rest [RC] .CONT Physician Instructions: Bed rest w/bathroom privileges [RC] .PRN COPD Discharge Checklist [RC] .atdischarge Cardiac Monitoring Med/Surg [RC] .CONT Telemetry Reason: ACS/CP Cardiac monitoring [RC] .ONCE Continuous pulse oximetry [RC] CONT Comment: Head of bed elevation [RC] .ONCE Measure intake and output [RC] QSHIFT Measure weight [RC] DAILY Peripheral IV [RC] CONT Placement to Observation Routine Physician Instructions: Reason for Visit: Difficulty breathing Is VTE Prophylaxis Indicated?: Yes RT has an order or consult [RC] NOW Consult to Nurse Navigator [CONS] Routine Comment: 01/21/17 23:15 Oxygen via nasal cannula Nasal Cannula 2 lpm Comment: Titrate O2 to main O2 sat greater than: 92% 0.9 % Sodium Chloride 1,000 ml IVC 50 mls/hr Ipratropium/Albuterol Neb [Duoneb] 3 ml IH QIDR 01/21/17 23:19 Diazepam [Valium] 5 mg PO TID PRN 01/21/17 23:21 Promethazine [Phenergan] 12.5 mg IVP Q4HR PRN 01/21/17 23:30 Troponin I Q6H Specimen: Send someone from the department to collect Comment: 01/21/17 Breakfast Cardiac Diet Diet Modifications: 01/22/17 04:00 Activated Partial Thrombo Time [COAG] AM 0400 Specimen: Send someone from the department to collect Comment: Complete Blood Count [HEME] AM 0400 Specimen: Send someone from the department to collect Comment: Comprehensive Metabolic Panel AM 0400 Specimen: Send someone from the department to collect Comment: Lipid Panel AM 0400 Specimen: Send someone from the department to collect Comment: Magnesium AM 0400 Specimen: Send someone from the department to collect Comment: Phosphorous AM 0400 Specimen: Send someone from the department to collect Comment: Prothrombin Time INR [COAG] AM 0400 Specimen: Send someone from the department to collect Comment: 01/22/17 05:30 Troponin I Q6H Specimen: Send someone from the department to collect Comment: 01/22/17 06:30 Omeprazole [PriLOSEC] 20 mg PO DAILY@0630 01/22/17 07:00 Acetylcysteine 10% 2 ml IH [id number] 01/22/17 09:00 Baclofen [Lioresal] 10 mg PO TID Diltiazem CD (24hr) [Cardizem CD] 180 mg PO DAILY Escitalopram [Lexapro] 10 mg PO DAILY Fluticasone Propionate Nasal [Flonase] 50 mcg NS DAILY GuaiFENesin ER [Mucinex] 600 mg PO BID Linaclotide [Linzess] 290 mcg PO QAM How will this medication be supplied?: Pharmacy to Subsitute Lisinopril [Zestril] 10 mg PO DAILY Loratadine [Claritin] 10 mg PO DAILY Meloxicam [Mobic] 7.5 mg PO DAILY PredniSONE 40 mg PO DAILY Psyllium Husk [Daily Fiber] 1.56 gm PO BID How will this medication be supplied?: Pharmacy to Subsitute 01/22/17 11:30 Troponin I Q6H Specimen: Send someone from the department to collect Comment: 01/22/17 21:00 Montelukast [Singulair] 10 mg PO HS Pravastatin Sodium [Pravachol] 40 mg PO HS How will this medication be supplied?: Pharmacy to Subsitute Temazepam [Restoril] 15 mg PO HS 01/22/17 23:17 Culture,Sputum with Gram Stain [RM] Routine Specimen: Send someone from the department to collect Comment: ANNIE Source: Sputum Specimen Description: Patient Problems (Last Updated 01/21/17 @ 23:29 by Jeffrey Fields MD) Chest pain (Acute) Acute chest wall pain (Acute) Acute respiratory failure with hypoxia (Acute) Atelectasis of left lung (Acute) Chest pain with low risk of acute coronary syndrome (Acute) Chest pain, rule out acute myocardial infarction (Acute) Mucus plugging of bronchi (Acute) Morbid obesity with BMI of 40.0-44.9, adult (Chronic) DARCIE (obstructive sleep apnea) (Chronic) Vital Signs Temp Pulse Resp BP Pulse Ox 01/21/17 20:29 83 16 125/62 95 01/21/17 19:59 84 16 111/94 94 L 01/21/17 19:29 81 16 109/58 94 L 01/21/17 18:59 94 L 01/21/17 18:11 18 95 01/21/17 17:59 80 16 122/83 92 L 01/21/17 17:15 98.7 F 85 16 172/99 96 Laboratory Results 01/21/17 01/21/17 01/21/17 Range/Units 17:47 17:47 17:47 WBC 10.5 (4.3-11.1) K/mcL RBC 4.82 (3.82-4.97) M/mcL Hgb 14.9 (11.5-15.4) g/dL Hct 45.3 H (35.3-44.9) % MCV 94.0 (83.0-100.0) fL MCH 30.9 (28.0-33.3) pg MCHC 32.9 (31.6-35.5) g/dL RDW 13.6 (11.5-14.5) % Plt Count 362 (140-400) K/mcL MPV 10.1 (9.4-12.4) fL Immature Gran % 0.4 (0-4) % Seg Neutrophils % 78.4 % Lymphocytes % 14.0 % Monocytes % 5.7 % Eosinophils % 1.0 % Basophils % 0.5 % Neutrophils # 8.2 (1.6-8.9) K/mcL Lymphocytes # 1.5 (0.6-4.6) K/mcL Monocytes # 0.6 (0.0-1.3) K/mcL Eosinophils # 0.1 (0.0-0.6) K/mcL Basophils # 0.1 (0.0-0.2) K/mcL D-Dimer (0-500) ng/mLFEU Sodium 142 (136-145) mEq/L Potassium 4.0 (3.5-4.5) mEq/L Chloride 108 (98-109) mEq/L Carbon Dioxide 24 (19-29) mEq/L BUN 16 (7-20) mg/dL Creatinine 0.83 (0.57-1.11) mg/dL Est GFR ( Amer) > 60 (> 60) Est GFR (Non-Af Amer) > 60 (> 60) BUN/Creatinine Ratio 19 (6-26) Glucose 93 (70-99) mg/dL Calculated Osmolality 295 (280-300) Calcium 9.2 (8.6-10.8) mg/dL Total Bilirubin 0.6 (0.2-1.2) mg/dL AST 17 (5-34) Units/L ALT 20 (0-55) Units/L Alkaline Phosphatase 84 (38-126) Units/L Troponin I 0.00 (0-0.03) ng/mL Serum Total Protein 7.1 (6.0-8.3) g/dL Albumin 3.3 L (3.5-5.0) g/dL Globulin 3.8 H (2.4-3.5) g/dL Albumin/Globulin Ratio 0.9 L (1.1-2.2) 01/21/17 Range/Units 17:47 WBC (4.3-11.1) K/mcL RBC (3.82-4.97) M/mcL Hgb (11.5-15.4) g/dL Hct (35.3-44.9) % MCV (83.0-100.0) fL MCH (28.0-33.3) pg MCHC (31.6-35.5) g/dL RDW (11.5-14.5) % Plt Count (140-400) K/mcL MPV (9.4-12.4) fL Immature Gran % (0-4) % Seg Neutrophils % % Lymphocytes % % Monocytes % % Eosinophils % % Basophils % % Neutrophils # (1.6-8.9) K/mcL Lymphocytes # (0.6-4.6) K/mcL Monocytes # (0.0-1.3) K/mcL Eosinophils # (0.0-0.6) K/mcL Basophils # (0.0-0.2) K/mcL D-Dimer 610 H (0-500) ng/mLFEU Sodium (136-145) mEq/L Potassium (3.5-4.5) mEq/L Chloride (98-109) mEq/L Carbon Dioxide (19-29) mEq/L BUN (7-20) mg/dL Creatinine (0.57-1.11) mg/dL Est GFR ( Amer) (> 60) Est GFR (Non-Af Amer) (> 60) BUN/Creatinine Ratio (6-26) Glucose (70-99) mg/dL Calculated Osmolality (280-300) Calcium (8.6-10.8) mg/dL Total Bilirubin (0.2-1.2) mg/dL AST (5-34) Units/L ALT (0-55) Units/L Alkaline Phosphatase (38-126) Units/L Troponin I (0-0.03) ng/mL Serum Total Protein (6.0-8.3) g/dL Albumin (3.5-5.0) g/dL Globulin (2.4-3.5) g/dL Albumin/Globulin Ratio (1.1-2.2) Assessments/Treatments 12 lead ECG assessment Start: 01/21/17 17: 17 Freq: NOW Status: Complete Document 01/21/17 17:59 TAB (Rec: 01/21/17 18:31 TAB [id number]) EKG Time EKG Completed 17:55 EKG performed by bhanu EKG shown to and signed by Dr. Lackey Cardiac monitoring Start: 01/21/17 17: 29 Freq: Status: Active Document 01/21/17 17:59 TAB (Rec: 01/21/17 18:31 TAB [id number]) Cardiac Monitoring Heart Rate 76 Monitoring Method Bedside ED Chest Pain Assessment Start: 01/21/17 17: 29 Freq: Status: Complete Document 01/21/17 17:59 TAB (Rec: 01/21/17 18:31 TAB [id number]) Chest Pain Duration Constant Onset "tuesday" Location Left Chest Severity Severe Radiation Left Upper Extremity Neck Context Unknown Improves With Nothing Worsens With Exertion Inspiration Movement Treatment Prior To Arrival None Level Of Consciousness Awake Alert Appropriate Follows Commands Patient Orientation Person Place Name Age Date of Respiratory Depth Normal Respiratory Effort Non-Labored Respiratory Pattern Regular Oxygen Delivery Method Nasal Cannula Nausea/Vomiting Presence None Hx SD No Hx Angina No Hx Congestive Heart Failure No Hx Coronary Artery Bypass Graft No Hx Coronary Stent No Hx Cardiac Arrhythmia Yes Hx AICD No Hx Pacemaker No Hx Deep Vein Thrombosis No Hx Clotting Problems No Hx Peripheral Vascular Disease No Hx Other Cardiac Disorders No Hx Stroke No Hx Diabetes Mellitus Type 1 No Hx Diabetes Mellitus Type 2 No Hx Recent Surgeries Yes: prolapse Hx Recent Childbirth No Hx Recreational Drug Use No Hx Substance Use No Fall Precautions ([facility]) Start: 01/21/17 17: 29 Freq: Status: Complete Document 01/21/17 17:59 TAB (Rec: 01/21/17 18:31 TAB [id number]) [facility] Fall Risk Assessment Tool Age less than60 years age (0 points) Fall History One fall within the last 6 months before admission (5 points) Elimination, Bowel, and Urine N/A (0 pts) Medications: Includes CLINIC PHYSICIAN DIRECTOR/opiates, On 2 or more high fall risk antivulsants, ant-hypertensives, drugs (5 points) diuretics, hypnotics, Patient Care Equipment: Any equipment None present (0 points) that tethers patient (e.g. IV infusions, chest tube, indwelling Mobility Unsteady gait (2 points) Cognition N/A (0 points) Total Fall Risk Score 12 Fall Risk Category Moderate Risk (6-13) Fall Risk Interventions Low Risk Interventions Bed in lowest position Top side rails up x 2 Secure brake on bed Use properly fitting non-skid footwear Call light and frequently needed objects within reach Encourage patients/families to call for assistance when needed Fall education including risk assessment, injury risk and routine/ Inspect environment for safety and communication risk Supervise and assist with toileting/ADLs as needed Moderate Risk Interventions Institue fall-risk tooklit ( yellow flag, yellow non-skid socks and Patient Rounding Start: 01/21/17 17: 29 Freq: Q30M Status: Active Document 01/21/17 17:59 TAB (Rec: 01/21/17 18:31 TAB [id number]) Patient Rounding Safety Call Light Within Reach Bed Position Low Bed Brake On Are the Floors Free From Trip Hazards? Yes Is the Room Free From Clutter? Yes Rounding Completed? Yes Patient Rounding Updated patient/family on Plan of Care Checked for Patient Positioning Patient Awake Document 01/21/17 18:59 TAB (Rec: 01/21/17 23:25 TAB [id number]) Patient Rounding Safety Call Light Within Reach Bed Position Low Bed Brake On Side Rails Up X2 Are the Floors Free From Trip Hazards? Yes Is the Room Free From Clutter? Yes Rounding Completed? Yes Patient Rounding Updated patient/family on Plan of Care Checked for Patient Positioning Patient Awake Document 01/21/17 19:29 TAB (Rec: 01/21/17 23:26 TAB [id number]) Patient Rounding Safety Call Light Within Reach Bed Position Low Bed Brake On Side Rails Up X2 Are the Floors Free From Trip Hazards? Yes Is the Room Free From Clutter? Yes Rounding Completed? Yes Patient Rounding Updated patient/family on Plan of Care Checked for Patient Positioning Patient Awake Document 01/21/17 19:59 TAB (Rec: 01/21/17 23:27 TAB [id number]) Patient Rounding Safety Call Light Within Reach Bed Position Low Bed Brake On Side Rails Up X2 Are the Floors Free From Trip Hazards? Yes Is the Room Free From Clutter? Yes Rounding Completed? Yes Patient Rounding Updated patient/family on Plan of Care Checked for Patient Positioning Patient Awake Document 01/21/17 20:29 TAB (Rec: 01/21/17 23:30 TAB [id number]) Patient Rounding Safety Call Light Within Reach Bed Position Low Bed Brake On Are the Floors Free From Trip Hazards? Yes Is the Room Free From Clutter? Yes Rounding Completed? Yes Patient Rounding Updated patient/family on Plan of Care Checked for Patient Positioning Patient Awake RT Continuous Pulse Oximetry Start: 01/21/17 17: 29 Freq: Status: Complete Document 01/21/17 17:59 TAB (Rec: 01/21/17 18:31 TAB [id number]) RT Respiratory Medication Delivery Start: 01/21/17 18: 30 Freq: Status: Complete Document 01/21/17 18:11 NRB (Rec: 01/21/17 18:31 NRB [id number]) Respiratory Therapy Pre Assessment SPO2 (95-100) 95 Heart rate 74 Respiratory Rate 18 Oxygen Delivery Method Nasal Cannula O2 Flow Rate 2 Anterior Bilateral Breath Sounds Expiratory Wheezing Scattered Treatment Modality Nebulizer Therapy Respiratory Medications Duoneb Medication Delivery Device Mouthpiece Treatment Tolerance Good Initial Aerosol/MDI/DPI* Yes Supplemental oxygen titration Start: 01/21/17 17: 29 Freq: Status: Active Document 01/21/17 18:59 TAB (Rec: 01/21/17 23:25 TAB [id number]) Oxygen Adminstration Oxygen Saturation (95-100) 94 L Oxygen Delivery Method Nasal Cannula Flow Rate 3 Triage Start: 01/21/17 17: 11 Freq: Status: Complete Document 01/21/17 17:15 TAB (Rec: 01/21/17 17:29 TAB [id number]) Triage Chief Complaint triage ED Chest Pain Patient Stated Complaint 'chest pain for about 2 days" DAWNA 3 Onset (ago) day(s) Description of Symptoms "having pains in my chest for about 2 days, came here today because they are getting stronger" General Appearance alert Work Related Injury? No Mode of arrival private vehicle Source patient Limitations no limitations Ebola Risk: Travel/Contact With Anyone No From Affected Area/s Has Patient Experienced Ebola Symptoms No Temperature (97.6 F-99.6 F) 98.7 F Temperature Source Oral Pulse Rate 85 Respiratory Rate 16 Blood Pressure 172/99 O2 Sat by Pulse Oximetry (95-100) 96 Oxygen Delivery Nasal Cannula Height 1.65 m Weight 109.316 kg Weight Measurement Method Estimated by Patient Pain Scale 8 Pain Scale Used Standard (1-10) Medical history asthma fibromyalgia hypertension migraine other Additional medical history PMH sinusitis,pelvic pain, verigo, insomnia, palpitations, sleep apnea Female surgical history cholecystectomy Additional surgical history PMH lt/rt hernia repair, toatl abdominal hysterectomy, benign cyst removal upper arm, prolapse, caused need for drain (ceroma) Psychiatric history anxiety depression Smoking Status Former smoker Smokeless Tobacco Status No Alcohol Use none Drug Use none Patient resides with/at Spouse Safety Concerns Feels Safe At This Time Do you currently feel hopless, have No thoughts of self harm, or thoughts of harming others History of fall in last 14 days? 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 Influenza vaccine up to date No Pneumonia vaccine up to date No Tetanus UTD no Coma Scale Eye Opening Spontaneous Coma Scale Motor Response Obeys Commands Coma Scale Verbal Response Oriented Coma Scale Total 15 Vital Signs Assessment Start: 01/21/17 17: 29 Freq: Status: Active Document 01/21/17 17:59 TAB (Rec: 01/21/17 18:31 TAB [id number]) ED Vital Signs Pain Reported Pain Reported Pain Scale Used Standard (1-10) Blood Pressure 122/83 Blood Pressure Location Right Arm Source Automatic Cuff Position HOB Elevated Pulse Rate 80 Rhythm Regular Strength Normal Respiratory Rate 16 Depth Normal Pulse Oximetry (95-100) 92 L Oxygen Flow Rate (LPM) 2 Document 01/21/17 19:29 TAB (Rec: 01/21/17 23:26 TAB [id number]) ED Vital Signs Pain Reported Pain Reported Pain Scale 6 Pain Scale Used Standard (1-10) Blood Pressure 109/58 Blood Pressure Location Left Arm Source Automatic Cuff Position HOB Elevated Pulse Rate 81 Rhythm Regular Strength Normal Respiratory Rate 16 Depth Normal Effort Non-Labored Pattern Regular Pulse Oximetry (95-100) 94 L Oxygen Delivery Nasal Cannula Oxygen Flow Rate (LPM) 3 Document 01/21/17 19:59 TAB (Rec: 01/21/17 23:27 TAB [id number]) ED Vital Signs Pain Reported Pain Reported Pain Scale 6 Pain Scale Used Standard (1-10) Blood Pressure 111/94 Blood Pressure Location Left Arm Source Automatic Cuff Position HOB Elevated Pulse Rate 84 Rhythm Regular Strength Normal Respiratory Rate 16 Depth Normal Effort Non-Labored Pattern Regular Pulse Oximetry (95-100) 94 L Oxygen Delivery Nasal Cannula Oxygen Flow Rate (LPM) 3 Document 01/21/17 20:29 TAB (Rec: 01/21/17 23:30 TAB [id number]) ED Vital Signs Pain Reported Pain Reported Pain Scale 5 Pain Scale Used Standard (1-10) Blood Pressure 125/62 Blood Pressure Location Left Arm Source Automatic Cuff Position HOB Elevated Pulse Rate 83 Rhythm Regular Strength Normal Respiratory Rate 16 Depth Normal Effort Non-Labored Pattern Regular Pulse Oximetry (95-100) 95 Oxygen Delivery Nasal Cannula Oxygen Flow Rate (LPM) 3 Discharge Information ED Provider: Andrew Lackey Status: Admitted Observation Patient Time Seen by Provider: 01/21/17 17:12 Condition: Good Triaged At: Emergency Discharge Date/Time: Emergency Discharge Disposition: Still a Patient Clinical Impression Chest pain Emergency Discharge Comment: Admit Intervention Last Done ED Chest Pain Assessment 01/21/17 17:59 Query Result Chest Pain Duration Constant Chest Pain Onset "tuesday" Chest Pain Location Left Chest Chest Pain Severity Severe Chest Pain Radiation Left Upper Extremity Neck Chest Pain Context Unknown Chest Pain Improves With Nothing Chest Pain Worsens With Exertion Inspiration Movement Chest Pain Treatments Prior to Arrival None Level Of Consciousness Awake Alert Appropriate Follows Commands Patient Orientation Person Place Name Age Date of Respiratory Depth Normal Respiratory Effort Non-Labored Respiratory Pattern Regular Oxygen Delivery Method Nasal Cannula Nausea/Vomiting Presence None Hx Myocardial Infarction No Hx Angina No Hx Congestive Heart Failure No Hx Coronary Artery Bypass Graft No Hx Coronary Stent No Hx Cardiac Arrhythmia Yes Hx Auto Implanted Cardiovert Defib No Hx Pacemaker No Hx Deep Vein Thrombosis No Hx Clotting Problems No Hx Peripheral Vascular Disease No Hx Cardiac Disorders No HX Cerebrovascular Accident No Hx Diabetes Mellitus Type 1 No Hx Diabetes Mellitus Type 2 No Hx Surgeries Yes: prolapse Hx Recent Childbirth No Hx Recreational Drug Use No Hx Substance Use No ED Discharge Assessment Observation Discharge Date/Time: Observation Discharge Disposition: Observation Discharge Comment: Instructions: Stand-Alone Forms: Prescriptions: Visit Report - Forms: - Referrals: Radiology Results Chest X-Ray 01/21/17 17:17 IMPRESSION: 1. No acute cardiopulmonary disease. D/ / Asif De Leon MD / Asif De Leon MD Interpreting Provider: Asif De Leon MD Chest CTA 01/21/17 18:28
[2017-01-22] MEDS: Ipratropium/Albuterol Neb 3 ML IH SCH ×5 (00:01→23:11)
[2017-01-22] MEDS: 0.9 % Sodium Chloride 1,000 ML IVC SCH ×2 (00:31→21:58)
[2017-01-22] MEDS: *HR* Morphine 2 MG/ML SYRINGE IVP PRN ×6 (00:43→20:13)
[2017-01-22 01:25] LABS: Basophils % 0.3 %; Eosinophils % 0.1 %; Hematocrit 45.1 % (35.3-44.9); Hemoglobin 14.4 g/dL (11.5-15.4); Immature Granulocytes % 0.5 % (0-4); Lymphocytes # 0.6 K/mcL (0.6-4.6); Mean Corpuscular HGB Conc 31.9 g/dL (31.6-35.5); Mean Corpuscular Hemoglobin 30.4 pg (28.0-33.3); Mean Corpuscular Volume 95.1 fL (83.0-100.0); Mean Platelet Volume 9.9 fL (9.4-12.4); Monocytes # 0.1 K/mcL (0.0-1.3); Neutrophils # 11.5 K/mcL (1.6-8.9); Platelet Count 325 K/mcL (140-400); Red Blood Count 4.74 M/mcL (3.82-4.97); Red Cell Distribution Width 13.6 % (11.5-14.5); Segmented Neutrophils % 93.1 %
[2017-01-22 01:30] LABS: Prothrombin Time 10.6 Seconds (9.4-12.1)
[2017-01-22 01:32] LABS: Activated Partial Thrombo Time 21.5 Seconds (26.0-36.0)
[2017-01-22 01:40] LABS: Alanine Aminotransferase 22 Units/L (0-55); Albumin 3.6 g/dL (3.5-5.0); Albumin/Globulin Ratio 0.9 (1.1-2.2); Alkaline Phosphatase 90 Units/L (38-126); Aspartate Amino Transferase 17 Units/L (5-34); BUN/Creatinine Ratio 18 (6-26); Bilirubin,Total 0.9 mg/dL (0.2-1.2); Blood Urea Nitrogen 14 mg/dL (7-20); Calcium 9.2 mg/dL (8.6-10.8); Carbon Dioxide 23 mEq/L (19-29); Chloride 105 mEq/L (98-109); Chol/HDL Ratio 3.8 (0-4.9); Cholesterol 261 mg/dL (< 200); Globulin 3.8 g/dL (2.4-3.5); Glucose 150 mg/dL (70-99); HDL Cholesterol 68 mg/dL (40-59); LDL Cholesterol,Calculated 172 mg/dL (0-99); Osmolality,Calculated 291 (280-300); Phosphorous 2.8 mg/dL (2.3-4.7); Potassium 4.2 mEq/L (3.5-4.5); Sodium 139 mEq/L (136-145); Total Protein 7.4 g/dL (6.0-8.3); Triglycerides 107 mg/dL (< 150); eGFR For African Americans > 60 (> 60); eGFR For Non-African Americans > 60 (> 60)
[2017-01-22] MEDS: Acetylcysteine 10% 2 ML INHSOL IH SCH ×3 (03:48→23:11)
[2017-01-22] MEDS: predniSONE 20 MG TABLET PO SCH (08:08)
[2017-01-22] MEDS: Loratadine 10 MG TABLET PO SCH (08:10)
[2017-01-22] MEDS: Baclofen 10 MG TABLET PO SCH ×3 (08:10→20:12)
[2017-01-22] MEDS: Diltiazem CD (24hr) 180 MG CAPSULE PO SCH (08:10)
[2017-01-22] MEDS: Fluticasone Propionate Nasal 50 MCG/SPRAY BOTTLE NS SCH (08:10)
[2017-01-22] MEDS: Psyllium 1 PACKET POWD.PACK PO SCH ×2 (08:12→20:20)
[2017-01-22] MEDS: (Linaclotide [Linzess] 290 MCG) PO SCH (08:15)
[2017-01-22] MEDS ORDERED: Azithromycin 500 MG in D5% in Water 250 ML IVPB SCH (09:00)
[2017-01-22] MEDS ORDERED: *HR* LORazepam 2 MG/ML VIAL IVP ONE (10:33)
--- NOTE | 2017-01-22 12:26 | Internal Med Progress Note ---
Date of Encounter: 01/22/17 Time of Encounter: 11:30 - Assessment and plan (1) Chest pain Current Visit: Yes Status: Acute Assessment and plan: Patient presented to the ER last night with approximately one-week history of worsening chest pain. She had shortness of breath and nausea and sometimes felt like the pain was radiating straight through to her back from the left side. She denies fevers, dizziness, or nausea and vomiting. This morning upon exam patient appeared to be anxious, tachypneic, and in distress. Patient states that now chest pain is diffuse, sharp, and stabbing. Patient's entire chest and abdomen are tender to even light palpation. Patient states the pain is worse with movement and deep inspiration. She is unable to take deep breaths for auscultation. I did give her 1 mg of Ativan IV to assist with easing her anxiety. She was also complaining of sharp, stabbing, knifelike pain and itching at her IV site in her left upper arm while the Zithromax was infusing. The infusion was stopped and after discussing it with Dr. Vieira, it was also discontinued. During exam patient was also dry heaving and had nausea. At this time she was also given 4 mg of Zofran IV. Her troponins were negative 3, EKG in the ER showed normal sinus rhythm. Due to her distress and complaint of change in chest pain a stat EKG was done prior to exam. It also showed normal sinus rhythm with sinus arrhythmia. Rate was 96, without signs of ischemia. Her chest x-ray shows no acute cardiopulmonary disease. I believe all of this chest pain is pleuritic and indirect relation to the left lower lobe collapse and mucous plugging. Director Medical Safety labs Continuous pulse ox Pain control as needed Qualifiers: Chest pain type: chest pain on breathing Qualified Code(s): R07.1 - Chest pain on breathing (2) Acute chest wall pain Current Visit: Yes Status: Acute Assessment and plan: Plan as above (3) Mucus plugging of bronchi Current Visit: Yes Status: Acute Assessment and plan: Patient had an elevated d-dimer last night in the emergency department and a CTA was done to rule out a PE. CT was negative for PE. The CT also showed discoid atelectasis bilateral lung bases and lobar collapse of the left middle lobe, potentially related to mucus plugging. She has a stable 3.7 mm lung nodule in the peripheral right upper lobe that was first noted in April 2007. The CT also says that superimposed infection is difficult to exclude, so patient has been started on Rocephin and Zithromax. Zithromax was discontinued after she could not tolerate pain at the IV site. I did discuss this with Dr. Vieira who says that Rocephin is okay to continue. I consulted Dr. Vieira, bundle tier and labeler, who will see patient today. He is also planning on possible bronchoscopy on Tuesday. Patient has been afebrile, she does have leukocytosis at 12.3, and she is currently requiring 3 L of oxygen to maintain her sats around 94%. She does not currently use home oxygen, but has had has to have it in the past. Continuous pulse ox Telemetry Pulmonology consult O2 via nasal cannula titrate to maintain sats above 92% Rocephin 1 g IV every 12 hours Nothing by mouth after midnight Tuesday night for potential bronchoscopy Tuesday morning Continue to monitor labs and vital signs (4) Acute respiratory failure with hypoxia Current Visit: Yes Status: Acute Assessment and plan: Patient is requiring O2 currently to maintain sats around 94%. She is on 3 L. She does not normally require oxygen at home. Plan as above (5) Discoid atelectasis Current Visit: Yes Status: Acute Assessment and plan: Per CT a done on 01/21/17, patient has discoid atelectasis at bilateral lung bases. Will continue monitor Plan as above (6) Morbid obesity with BMI of 40.0-44.9, adult Current Visit: Yes Status: Chronic Assessment and plan: Chronic. Lifestyle modifications (7) Pleuritic chest pain Current Visit: Yes Status: Acute Assessment and plan: Patient's chest is diffusely tender anteriorly to even light palpation. Pain increases with deep inspiration, movement, and cough. She is on antibiotics IV currently, and we can provide pain medication as needed to control pain. Plan as above - Time Spent With Patient less than 15 minutes - Subjective Interval history: Patient states that she is having worsening chest pain day. This morning patient appears to be very uncomfortable, slightly anxious, and states the pain is diffuse and sharp throughout her chest. Pain increases with any movement or deep inspiration. Patient also has about a one-year history of diffuse abdominal pain which is tender to even light palpation. She is also reporting sharp knifelike stabbing pain to left upper arm where power glide is inserted. Patient appeared to be having difficulty tolerating the Zithromax ,it was stopped and will be discontinued by the recommendation of Dr. Vieira. - Constitutional Vitals: Temp Pulse Resp BP Pulse Ox 97.6 F 103 18 147/71 92 L 01/22/17 10:31 01/22/17 10:31 01/22/17 11:42 01/22/17 10:31 01/22/17 11:42 General appearance: Present: cooperative, mild distress, A&O X 3, obese, answers questions appropriately - Head Head exam: Present: normal inspection - Eye Eye exam: Present: normal appearance, conjuntiva pink - ENT ENT exam: Present: mucous membranes moist, normal exam - Neck Neck exam general surgery: Present: normal inspection. Absent: lymphadenopathy , tenderness - Respiratory Respiratory exam: Present: chest wall tenderness. Absent: stridor, tachypnea Additional comments: Due to chest pain patient was unable to take deep breaths for auscultation. - Cardiovascular Cardiovascular exam: Present: RRR, +S1, +S2. Absent: diastolic murmur, systolic murmur - GI/Abdominal GI/Abdominal exam: Present: guarding, normal bowel sounds, tenderness. Absent: hepatomegaly - Extremities Exam Extremities exam: Present: normal inspection, warm. Absent: pedal edema, tenderness - Neurological Exam Neurological exam: Present: alert, oriented X3, strengths equal and symetr throughout. Absent: facial droop, speech deficit Internal Medicine: Result - Labs CBC & Chem 7: 01/22/17 01:17 01/22/17 01:17 Labs: Short CBC 01/22/17 Range/Units 01:17 WBC 12.3 H (4.3-11.1) K/mcL Hgb 14.4 (11.5-15.4) g/dL Hct 45.1 H (35.3-44.9) % Plt Count 325 (140-400) K/mcL Neutrophils # 11.5 H (1.6-8.9) K/mcL BMP 01/22/17 01:17 Sodium 139 Potassium 4.2 Chloride 105 Carbon Dioxide 23 BUN 14 Creatinine 0.76 Glucose 150 H Calcium 9.2 Cardiac Enzymes 01/22/17 01/22/17 Range/Units 01:17 08:29 Troponin I 0.00 0.01 (0-0.03) ng/mL Liver Function 01/22/17 Range/Units 01:17 Total Bilirubin 0.9 (0.2-1.2) mg/dL AST 17 (5-34) Units/L ALT 22 (0-55) Units/L Alkaline Phosphatase 90 (38-126) Units/L Albumin 3.6 (3.5-5.0) g/dL - ABG Interpretation ABG results: PT/INR, D-dimer PT 10.6 Seconds (9.4-12.1) 01/22/17 01:17 D-Dimer 610 ng/mLFEU (0-500) H 01/21/17 17:47 Consult Discharge Plan - Plan Referrals: Tara Maciel, [facility] [Primary Care Provider] -
--- NOTE | 2017-01-22 14:43 | Pulmonology Consult Note ---
Date of Encounter: 01/22/17 Time of Encounter: 14:41 Assessment and Plan (1) Abnormal CT scan, chest Current Visit: Yes Status: Acute I reviewed the CT scan of the chest images. The patient has left lower lobe atelectasis with possible mucus plugging. I do not see an obvious pleural effusion. Unable to rule out endobronchial lesion. Plan will be for bronchoscopy on 01/24/2017 for inspection and possible extraction of mucous plug. Please make nothing by mouth after midnight on the day prior to the procedure. Agree with empiric treatment for community-acquired pneumonia. (2) Atelectasis of left lung Current Visit: Yes Status: Acute She is currently on inhaled acetylcysteine and by mouth guaifenesin. She states she is in too much pain to tolerate chest physiotherapy. A flutter valve would be reasonable to assist with mucus clearance. Otherwise, as above we plan on bronchoscopy. (3) Pleuritic chest pain Current Visit: Yes Status: Acute This may be secondary to pleurisy versus musculoskeletal pain due to a muscle strain from coughing. No evidence of a rib fracture. No clear pleural effusion noted on CAT scan. Agree with prednisone, as this pain is typically inflammatory in nature. Her chronic pain issues make pain control difficult. (4) COPD (chronic obstructive pulmonary disease) Current Visit: Yes Status: Acute By history. Continue bronchodilator regimen. Qualifiers: COPD type: unspecified COPD Qualified Code(s): J44.9 - Chronic obstructive pulmonary disease, unspecified History of Present Illness Consult date: 01/22/17 Requesting physician: Farida Hernandez Reason for consult: abnormal CXR/CT Chief complaint: Chest pain History of present illness: 61-year-old morbidly obese white female with a medical history significant for chronic pain, COPD, DARCIE, irritable bowel syndrome. She presented for further evaluation of chest pain. Patient reports approximately 24-48 hours ago she developed left-sided anterior chest pain. The pain radiated through to her back and moved to her left shoulder and neck region. The pain was pleuritic in nature. She denies exertional chest discomfort, nausea/vomiting, or diaphoresis. She denies any fever/chills. No sputum production but she does report a non-productive cough. Past Med Surg Social Fam HX - Past Medical History Medical history: arthritis, asthma, COPD, GERD, hypertension, migraine, other Psychiatric history: anxiety, depression, other - Past Surgical History Surgical History: appendectomy, cholecystectomy, herniorrhaphy, hysterectomy, sinus surgery, FER/BSO, other - Social History Smoking Status: Former smoker Packs per day: ~38pk-yrs Smokeless Tobacco Status: No Alcohol use: none Drug use: none - Family History Mother Hx Family Cardiac Disorders: Yes Hx Family Respiratory Disorders: Yes (copd) Medications and Allergies Albuterol Sulfate [Ventolin Hfa] 2 puff IH Q4H PRN 01/21/17 [History] Baclofen [Lioresal] 10 mg PO TID 01/21/17 [History] Cyanocobalamin (Vitamin B-12) [Vitamin B12] 1,000 mcg PO DAILY 01/21/17 [History ] Diazepam [Valium] 5 mg PO TID PRN 01/21/17 [History] Diltiazem CD (24hr) [Cardizem CD] 180 mg PO DAILY 01/21/17 [History] Escitalopram [Lexapro] 10 mg PO DAILY 01/21/17 [History] Fluticasone Propionate Nasal [Flonase] 50 mcg NS DAILY 01/21/17 [History] Fluticasone/Salmeterol [Advair 500-50 Diskus] 1 each IH BID 01/21/17 [History] Lidocaine Patch [Lidoderm 5% patch] 1 each TP DAILY 01/21/17 [History] Linaclotide [Linzess] 290 mcg PO QAM 01/21/17 [History] Lisinopril [Zestril] 10 mg PO DAILY 01/21/17 [History] Loratadine [Claritin] 10 mg PO DAILY 01/21/17 [History] Meloxicam [Meloxicam] 7.5 mg PO DAILY 01/21/17 [History] Montelukast [Singulair] 10 mg PO HS 01/21/17 [History] Multivitamin [Multi-Day Vitamins] 1 each PO DAILY 01/21/17 [History] Omeprazole [PriLOSEC] 20 mg PO DAILY 01/21/17 [History] Pravastatin Sodium [Pravachol] 40 mg PO HS 01/21/17 [History] Promethazine [Phenergan] 25 mg PO Q6H PRN 01/21/17 [History] Promethazine [Phenergan] 25 mg RC Q8H PRN 01/21/17 [History] Psyllium Husk [Daily Fiber] 1.56 gm PO BID 01/21/17 [History] Temazepam [Restoril] 15 mg PO HS 01/21/17 [History] Tiotropium [Spiriva] 18 mcg IH QAM 01/21/17 [History] Zolmitriptan [Zomig] 2.5 mg PO DAILY PRN 01/21/17 [History] Allergies calcium [From DHEA] Allergy (Verified 02/13/16 19:00) Hives calcium carbonate [From DHEA] Allergy (Verified 02/13/16 19:00) Hives prasterone (DHEA) [From DHEA] Allergy (Verified 02/13/16 19:00) Hives prochlorperazine [From Compazine] Allergy (Verified 02/13/16 19:00) Hives sumatriptan [From Imitrex] Allergy (Verified 02/13/16 19:00) Hives All Systems: A 10-system review of systems was performed and is negative for pertinent findings except as documented above in the HPI. Physical Examination Vital Signs: Vital Signs, Last 4 Hours Resp Pulse Ox 01/22/17 11:42 18 92 L Vital signs reviewed General: no acute distress, obese white female Eyes: nonicteric ENT: oropharynx moist Neck: supple, no lymphadenopathy Lungs: Clear to auscultation bilaterally Cardiovascular: regular rate and rhythm Gastrointestinal: normoactive bowel sounds, soft, non-tender, non-distended Integumentary: normal Extremities: no cyanosis, no edema Musculoskeletal: no deformities Neuro: normal mental status, non-focal exam Psych: mood appropriate, affect normal Results - Laboratory Findings CBC and BMP: 01/22/17 01:17 01/22/17 01:17 PT/INR, D-dimer PT 10.6 Seconds (9.4-12.1) 01/22/17 01:17 D-Dimer 610 ng/mLFEU (0-500) H 01/21/17 17:47 Abnormal lab findings: Abnormal lab results WBC 12.3 K/mcL (4.3-11.1) H 01/22/17 01:17 Hct 45.1 % (35.3-44.9) H 01/22/17 01:17 Neutrophils # 11.5 K/mcL (1.6-8.9) H 01/22/17 01:17 APTT 21.5 Seconds (26.0-36.0) L 01/22/17 01:17 D-Dimer 610 ng/mLFEU (0-500) H 01/21/17 17:47 Glucose 150 mg/dL (70-99) H 01/22/17 01:17 Globulin 3.8 g/dL (2.4-3.5) H 01/22/17 01:17 Albumin/Globulin Ratio 0.9 (1.1-2.2) L 01/22/17 01:17 Cholesterol 261 mg/dL (< 200) H 01/22/17 01:17 LDL Cholesterol, Calc 172 mg/dL (0-99) H 01/22/17 01:17 HDL Cholesterol 68 mg/dL (40-59) H 01/22/17 01:17 - Clinical Findings Intake & Output: Intake & Output 01/21/17 01/22/17 01/22/17 23:59 07:59 15:59 Intake Total 220 / 220 Output Total 250 / 250 500 / 500 Balance -250 / -250 -280 / -280 Weight 110 kg Consult Discharge Plan - Plan Referrals: Tara Maciel, SUPPLIER SPECIALIST [Primary Care Provider] -
[2017-01-22] MEDS: Temazepam 15 MG CAPSULE PO SCH (20:12)
[2017-01-23] MEDS: Acetylcysteine 10% 2 ML INHSOL IH SCH ×3 (04:15→23:12)
[2017-01-23] MEDS: Ipratropium/Albuterol Neb 3 ML IH SCH ×4 (04:15→23:11)
[2017-01-23 04:27] LABS: Basophils % 0.1 %; Eosinophils % 0.1 %; Hematocrit 38.4 % (35.3-44.9); Immature Granulocytes % 0.7 % (0-4); Lymphocytes # 1.3 K/mcL (0.6-4.6); Mean Corpuscular HGB Conc 33.1 g/dL (31.6-35.5); Mean Corpuscular Hemoglobin 31.5 pg (28.0-33.3); Mean Corpuscular Volume 95.3 fL (83.0-100.0); Mean Platelet Volume 10.4 fL (9.4-12.4); Monocytes % 6.2 %; Neutrophils # 13.5 K/mcL (1.6-8.9); Platelet Count 345 K/mcL (140-400); Red Blood Count 4.03 M/mcL (3.82-4.97); Segmented Neutrophils % 84.9 %
[2017-01-23 04:31] LABS: Hemoglobin 12.7 g/dL (11.5-15.4)
[2017-01-23] MEDS: *HR* Morphine 2 MG/ML SYRINGE IVP PRN ×5 (04:47→23:37)
[2017-01-23 04:51] LABS: BUN/Creatinine Ratio 21 (6-26); Blood Urea Nitrogen 15 mg/dL (7-20); Calcium 8.5 mg/dL (8.6-10.8); Carbon Dioxide 25 mEq/L (19-29); Chloride 107 mEq/L (98-109); Glucose 123 mg/dL (70-99); Osmolality,Calculated 294 (280-300); Potassium 3.9 mEq/L (3.5-4.5); Sodium 141 mEq/L (136-145); eGFR For African Americans > 60 (> 60); eGFR For Non-African Americans > 60 (> 60)
[2017-01-23] MEDS: Fluticasone Propionate Nasal 50 MCG/SPRAY BOTTLE NS SCH (07:56)
[2017-01-23] MEDS: (Linaclotide [Linzess] 290 MCG) PO SCH (07:56)
[2017-01-23] MEDS: Baclofen 10 MG TABLET PO SCH ×3 (07:57→21:56)
[2017-01-23] MEDS: Psyllium 1 PACKET POWD.PACK PO SCH ×3 (07:57→21:56)
[2017-01-23] MEDS: predniSONE 20 MG TABLET PO SCH (07:57)
[2017-01-23] MEDS: Diltiazem CD (24hr) 180 MG CAPSULE PO SCH (07:58)
[2017-01-23] MEDS: Loratadine 10 MG TABLET PO SCH (07:58)
[2017-01-23] MEDS: Ondansetron 4 MG/2 ML VIAL IVP PRN ×4 (08:15→18:51)
[2017-01-23] MEDS: *HR* OxyCODONE Immed Rel 5 MG TABLET PO PRN (08:16)
--- NOTE | 2017-01-23 12:40 | Electrocardiograph Report ---
[address] [place], [place] [address] Test Date: 2017-01-21 Pat Name: Clotilde Pastor Department: 103 Room: 3B24 Gender: F Insurance Plan Specialist: : 1955 Requested By: Andrew Lackey Order Number: [id number] Reading MD: Sasha Price Measurements Intervals [place] Rate: 80 P: 33 DE: 140 QRS: 14 QRSD: 84 T: 46 QT: 344 QTc: 380 Interpretive Statements SINUS RHYTHM INTERFERENCE Electronically Signed On 01-23-2017 12:38:07 EDT by Sasha Price
--- NOTE | 2017-01-23 12:56 | Electrocardiograph Report ---
[address] [address] Test Date: 2017-01-22 Pat Name: Clotilde Pastor Department: 113 Room: 3B24 Gender: F Crap Game Box Person: : 1955 Requested By: Farida Hernandez Order Number: [id number] Reading MD: Sasha Price Measurements Intervals [place] Rate: 96 P: 33 AL: 135 QRS: 18 QRSD: 86 T: 46 QT: 334 QTc: 387 Interpretive Statements SINUS RHYTHM ARTIFACT Electronically Signed On 01-23-2017 12:55:02 EDT by Sasha Price
[2017-01-23] MEDS ORDERED: Metoclopramide 10 MG/2 ML VIAL IVP PRN (13:20)
--- NOTE | 2017-01-23 13:35 | Internal Med Progress Note ---
Date of Encounter: 01/23/17 Time of Encounter: 10:00 - Assessment and plan (1) Chest pain Current Visit: Yes Status: Acute Assessment and plan: Patient is still having same chest pain today, and is hydrogenation still operator to palpation. Pain increases with movement, deep inspiration, or palpation. S1 and S2 are heard regular rate and rhythm. Today patient is able able to take deeper breaths for auscultation and has wheezing in bilateral bases. Music Supervisor labs Continuous pulse ox Pain control as needed Qualifiers: Chest pain type: chest pain on breathing Qualified Code(s): R07.1 - Chest pain on breathing (2) Acute chest wall pain Current Visit: Yes Status: Acute Assessment and plan: Plan as above (3) Mucus plugging of bronchi Current Visit: Yes Status: Acute Assessment and plan: Patient still requiring oxygen by nasal cannula to maintain oxygen saturations above 92%. Patient will be nothing by mouth tonight after midnight in preparation for bronchoscopy in the morning. Patient has been afebrile white count elevated 15.9 today. Patient is on steroids, and we will continue the Rocephin 1 g IV every 12 hours. Continuous pulse ox Telemetry Pulmonology consult O2 via nasal cannula titrate to maintain sats above 92% Rocephin 1 g IV every 12 hours Nothing by mouth after midnight Tuesday for potential bronchoscopy Tuesday morning Continue to monitor labs and vital signs (4) Acute respiratory failure with hypoxia Current Visit: Yes Status: Acute Assessment and plan: Patient is requiring O2 currently to maintain sats greater than 92% %. We will need to assess patient's need for possible home O2 after discharge. Plan as above (5) Discoid atelectasis Current Visit: Yes Status: Acute Assessment and plan: Plan as above (6) Morbid obesity with BMI of 40.0-44.9, adult Current Visit: Yes Status: Chronic Assessment and plan: Chronic. Lifestyle modifications. Can refer to nutrition prior to discharge if patient is agreeable (7) Pleuritic chest pain Current Visit: Yes Status: Acute Assessment and plan: Plan as above - Subjective Interval history: Patient reports chest pain same as yesterday. She was given by mouth pain medication is complaining of her nose itching. Patient still reports same abdominal pain she had on admission and her abdomen is hydrogenation still operator to even to light palpation. She complains today that her nausea has increased, I added Reglan 10 mg IV push every 6 hours. - Constitutional Vitals: Temp Pulse Resp BP Pulse Ox 97.2 F L 103 20 156/88 92 L 01/23/17 11:57 01/23/17 11:57 01/23/17 11:57 01/23/17 11:57 01/23/17 11:57 General appearance: Present: cooperative, mild distress, A&O X 3, obese, answers questions appropriately - Head Head exam: Present: normal inspection - Eye Eye exam: Present: normal appearance, PERRL - ENT ENT exam: Present: mucous membranes moist, normal exam - Neck Neck exam general surgery: Present: normal inspection. Absent: lymphadenopathy , tenderness - Respiratory Respiratory exam: Present: chest wall tenderness, decreased breath sounds, respiratory distress, wheezes Additional comments: Patient in mild respiratory distress simply due to pleuritic chest pain and cough with deep inspiration. Patient still coughs with inspiration however, today patient was able to take a slightly deeper breath than yesterday and has wheezing in bilateral bases. - Cardiovascular Cardiovascular exam: Present: RRR, +S1, +S2. Absent: diastolic murmur, systolic murmur - GI/Abdominal GI/Abdominal exam: Present: hypoactive bowel sounds, soft, tenderness Additional comments: Patient has chronic abdominal pain. Abdomen is tender to even light palpation. - Extremities Exam Extremities exam: Present: normal inspection, warm. Absent: pedal edema, tenderness - Neurological Exam Neurological exam: Present: alert, oriented X3, no focal deficits, strengths equal and symetr throughout Internal Medicine: Result - Labs CBC & Chem 7: 01/23/17 03:36 01/23/17 03:36 Labs: Short CBC 01/23/17 Range/Units 03:36 WBC 15.9 H (4.3-11.1) K/mcL Hgb 12.7 D (11.5-15.4) g/dL Hct 38.4 (35.3-44.9) % Plt Count 345 (140-400) K/mcL Neutrophils # 13.5 H (1.6-8.9) K/mcL BMP 01/23/17 03:36 Sodium 141 Potassium 3.9 Chloride 107 Carbon Dioxide 25 BUN 15 Creatinine 0.72 Glucose 123 H Calcium 8.5 L - ABG Interpretation ABG results: PT/INR, D-dimer PT 10.6 Seconds (9.4-12.1) 01/22/17 01:17 D-Dimer 610 ng/mLFEU (0-500) H 01/21/17 17:47 Consult Discharge Plan - Plan Referrals: Tara Maciel, GRACE [Primary Care Provider] -
--- NOTE | 2017-01-23 13:56 | Pulmonology Progress Note ---
Date of Encounter: 01/23/17 Time of Encounter: 13:54 Assessment and Plan (1) Abnormal CT scan, chest Current Visit: Yes Status: Acute I reviewed the CT scan of the chest images. The patient has left lower lobe atelectasis with possible mucus plugging. I do not see an obvious pleural effusion. Unable to rule out endobronchial lesion. Plan will be for bronchoscopy on 01/24/2017 for inspection and possible extraction of mucous plug. Please make nothing by mouth after midnight on the day prior to the procedure. Agree with empiric treatment for community-acquired pneumonia. (2) Atelectasis of left lung Current Visit: Yes Status: Acute She is currently on inhaled acetylcysteine and by mouth guaifenesin. She states she is in too much pain to tolerate chest physiotherapy. A flutter valve would be reasonable to assist with mucus clearance. Otherwise, as above we plan on bronchoscopy. (3) Pleuritic chest pain Current Visit: Yes Status: Acute This may be secondary to pleurisy versus musculoskeletal pain due to a muscle strain from coughing. No evidence of a rib fracture. No clear pleural effusion noted on CAT scan. Agree with prednisone, as this pain is typically inflammatory in nature. Her chronic pain issues make pain control difficult. (4) COPD (chronic obstructive pulmonary disease) Current Visit: Yes Status: Acute By history. Continue bronchodilator regimen. She is on prednisone as well. Pulmonary team will continue to follow. Qualifiers: COPD type: unspecified COPD Qualified Code(s): J44.9 - Chronic obstructive pulmonary disease, unspecified Subjective Principal diagnosis: Abnormal CT scan of the chest Interval history: Patient denies dyspnea at rest. She continues to have roving chest pain is nonexertional but pleuritic in nature. No fever/chills. She is having a cough but no sputum production. All other systems reviewed and otherwise negative. Objective PUL Vital signs: Last Vital Signs Temp 97.2 F L 01/23/17 11:57 Pulse 103 01/23/17 11:57 Resp 20 01/23/17 11:57 BP 156/88 01/23/17 11:57 Pulse Ox 92 L 01/23/17 11:57 General: no acute distress, obese white female Eyes: nonicteric ENT: oropharynx moist Neck: supple, no lymphadenopathy Lungs: Clear to auscultation bilaterally Cardiovascular: regular rate and rhythm Gastrointestinal: normoactive bowel sounds, soft, non-tender, non-distended Integumentary: normal Extremities: no cyanosis, no edema Musculoskeletal: no deformities Neuro: normal mental status, non-focal exam Psych: mood appropriate, affect normal Results - Laboratory Findings CBC and BMP: 01/23/17 03:36 01/23/17 03:36 PT/INR, D-dimer PT 10.6 Seconds (9.4-12.1) 01/22/17 01:17 D-Dimer 610 ng/mLFEU (0-500) H 01/21/17 17:47 Abnormal lab findings: Abnormal lab results WBC 15.9 K/mcL (4.3-11.1) H 01/23/17 03:36 Neutrophils # 13.5 K/mcL (1.6-8.9) H 01/23/17 03:36 APTT 21.5 Seconds (26.0-36.0) L 01/22/17 01:17 D-Dimer 610 ng/mLFEU (0-500) H 01/21/17 17:47 Glucose 123 mg/dL (70-99) H 01/23/17 03:36 Calcium 8.5 mg/dL (8.6-10.8) L 01/23/17 03:36 Globulin 3.8 g/dL (2.4-3.5) H 01/22/17 01:17 Albumin/Globulin Ratio 0.9 (1.1-2.2) L 01/22/17 01:17 Cholesterol 261 mg/dL (< 200) H 01/22/17 01:17 LDL Cholesterol, Calc 172 mg/dL (0-99) H 01/22/17 01:17 HDL Cholesterol 68 mg/dL (40-59) H 01/22/17 01:17 - Microbiology Findings Microbiology Findings: Microbiology, Last 48 Hours 01/22/17 01:17 Blood Culture - Preliminary Peripheral Venipuncture No growth. - Clinical Findings Intake & Output: Intake & Output 01/22/17 01/23/17 01/23/17 23:59 07:59 15:59 Intake Total 1740 / 1740 200 / 200 Output Total 800 / 800 250 / 250 300 / 300 Balance 940 / 940 -50 / -50 -300 / -300 Weight 111 kg Consult Discharge Plan - Plan Referrals: Tara Maciel, STRESS ENGINEER [Primary Care Provider] -
[2017-01-23] MEDS: diazePAM 5 MG TABLET PO PRN (21:55)
[2017-01-23] MEDS: Temazepam 15 MG CAPSULE PO SCH (21:55)
[2017-01-23] MEDS: 0.9 % Sodium Chloride 1,000 ML IVC SCH (22:05)
[2017-01-24] MEDS: *HR* Morphine 2 MG/ML SYRINGE IVP PRN ×2 (04:08→12:59)
[2017-01-24] MEDS: Ipratropium/Albuterol Neb 3 ML IH SCH ×4 (04:50→23:39)
[2017-01-24 05:07] LABS: Basophils % 0.2 %; Eosinophils % 0.2 %; Hematocrit 37.5 % (35.3-44.9); Hemoglobin 12.4 g/dL (11.5-15.4); Immature Granulocytes % 1.2 % (0-4); Lymphocytes # 1.7 K/mcL (0.6-4.6); Lymphocytes % 13.2 %; Mean Corpuscular HGB Conc 33.1 g/dL (31.6-35.5); Mean Corpuscular Hemoglobin 31.8 pg (28.0-33.3); Mean Corpuscular Volume 96.2 fL (83.0-100.0); Monocytes % 7.7 %; Neutrophils # 9.9 K/mcL (1.6-8.9); Platelet Count 294 K/mcL (140-400); Red Cell Distribution Width 14.1 % (11.5-14.5); Segmented Neutrophils % 77.5 %
[2017-01-24 05:12] LABS: BUN/Creatinine Ratio 22 (6-26); Blood Urea Nitrogen 16 mg/dL (7-20); Calcium 8.6 mg/dL (8.6-10.8); Carbon Dioxide 25 mEq/L (19-29); Chloride 107 mEq/L (98-109); Glucose 104 mg/dL (70-99); Osmolality,Calculated 293 (280-300); Sodium 141 mEq/L (136-145); eGFR For African Americans > 60 (> 60); eGFR For Non-African Americans > 60 (> 60)
[2017-01-24] MEDS: Diltiazem CD (24hr) 180 MG CAPSULE PO SCH (08:10)
[2017-01-24] MEDS: Fluticasone Propionate Nasal 50 MCG/SPRAY BOTTLE NS SCH (08:10)
[2017-01-24] MEDS: predniSONE 20 MG TABLET PO SCH (08:10)
[2017-01-24] MEDS: Loratadine 10 MG TABLET PO SCH (08:10)
[2017-01-24] MEDS: (Linaclotide [Linzess] 290 MCG) PO SCH (08:10)
[2017-01-24] MEDS: Baclofen 10 MG TABLET PO SCH ×3 (08:10→21:11)
[2017-01-24] MEDS: Psyllium 1 PACKET POWD.PACK PO SCH ×2 (08:10→21:12)
[2017-01-24] MEDS: diazePAM 5 MG TABLET PO PRN ×2 (08:20→21:10)
[2017-01-24] MEDS ORDERED: 0.9 % Sodium Chloride 1,000 ML IVC SCH (09:30)
[2017-01-24] MEDS ORDERED: Albuterol 2.5 MG/3 ML NEBULIZER IH ONE (09:30)
[2017-01-24] MEDS ORDERED: *HR* EPINEPHrine 1 MG/10 ML SYRINGE INTRATRACH PRN (09:30)
[2017-01-24] MEDS ORDERED: Lidocaine Viscous Oral Soln 15 ML SOLUTION MM ONE (09:30)
--- NOTE | 2017-01-24 09:30 | Pre-Sedation Evaluation ---
Pre-sedation evaluation - Pre-sedation checklist Date of procedure: 01/24/17 Procedure: Bronchoscopy Recent Vitals: Last Vital Signs Temp 97.7 F 01/24/17 07:11 Pulse 94 01/24/17 07:11 Resp 17 01/24/17 07:11 BP 145/85 01/24/17 07:11 Pulse Ox 94 L 01/24/17 07:11 H&P (including ROS) documented in medical record: Yes Previous reaction to sedatives/anesthetics: No Dietary Status: NPO after Midnight Possible difficult airway: No ASA Classification *see protocol: CLASS III-Severe systemic disease Plan of Care: Pt appropriate candidate for procedure/moderate/conscious sedation , Risks/benefits of procedure/sedation discussed w/ patient/family
[2017-01-24] MEDS ORDERED: *HR* Midazolam HCl 5 MG/5 ML VIAL IVP ONE (10:24)
[2017-01-24] MEDS ORDERED: Lidocaine Viscous Oral Soln 15 ML SOLUTION ONE (10:24)
[2017-01-24] MEDS ORDERED: *HR* FentaNYL (PF) 100 MCG/2 ML VIAL ONE (10:24)
[2017-01-24] MEDS: *HR* FentaNYL (PF) 100 MCG/2 ML VIAL IVP PRN ×3 (10:43→10:46)
[2017-01-24] MEDS: *HR* Midazolam HCl 5 MG/5 ML VIAL IVP PRN ×2 (10:44→10:45)
[2017-01-24] MEDS: Acetylcysteine 10% 2 ML INHSOL IH SCH ×3 (10:45→23:39)
[2017-01-24 13:21] LABS: Source of Body Fluid LLL BAL
[2017-01-24 15:26] LABS: Appearance of Body Fluid Cloudy (Clear); Volume of Body Fluid 19 mL
--- NOTE | 2017-01-24 16:22 | Electrocardiograph Report ---
[address] [place] [address] Test Date: 2017-01-23 Pat Name: Clotilde Pastor Department: 113 Room: 3B24 Gender: F Software Engineering Analyst: : 1955 Requested By: Farida Hernandez Order Number: [id number] Reading MD: José Antonio Zee MD Measurements Intervals [place] Rate: 79 P: 33 FL: 139 QRS: 12 QRSD: 86 T: 36 QT: 347 QTc: 381 Interpretive Statements SINUS RHYTHM WITH PACS IN A TRIGEMINAL PATTERN Electronically Signed On 01-24-2017 16:21:09 EDT by José Antonio Zee MD
--- NOTE | 2017-01-24 19:29 | Internal Med Progress Note ---
Date of Encounter: 01/24/17 Time of Encounter: 09:50 - Assessment and plan (1) Chest pain Current Visit: Yes Status: Acute Assessment and plan: Patient is still having same pleuritic like chest pain that she has been having since arrival. Is beverage distiller to palpation. I did see her prior to her bronchoscopy. She is requesting her pain medication scheduled. Due to chest pain she is unable to take deep inspiration to auscultate lung sounds. She has leukocytosis 12.8 today she is being treated with Rocephin, she is also on steroids which is a likely cause of her leukocytosis. Telemetry Continue to monitor labs Continue to monitor vital signs Qualifiers: Chest pain type: chest pain on breathing Qualified Code(s): R07.1 - Chest pain on breathing (2) Acute chest wall pain Current Visit: Yes Status: Acute Assessment and plan: No change in chest wall pain since arrival. Plan as above. (3) Mucus plugging of bronchi Current Visit: Yes Status: Acute Assessment and plan: Patient had bronchoscopy this morning by pulmonology. Report is finished. I have not heard that they have signed off yet. Patient will still be treated with antibiotics, pain medication, and steroids, (4) Acute respiratory failure with hypoxia Current Visit: Yes Status: Acute Assessment and plan: Patient is requiring O2 currently to maintain sats greater than 92% %. We will need to assess patient's need for possible home O2 after discharge. She has had to use home O2 in the past. Pulmonology follow-up. Plan as above (5) Discoid atelectasis Current Visit: Yes Status: Acute Assessment and plan: Plan as above (6) Morbid obesity with BMI of 40.0-44.9, adult Current Visit: Yes Status: Chronic Assessment and plan: Lifestyle modifications. Chronic. (7) Pleuritic chest pain Current Visit: Yes Status: Acute Assessment and plan: Unchanged since arrival. Seems to be well controlled with scheduled pain medication. Plan as above - Time Spent With Patient less than 15 minutes - Subjective Interval history: Patient still reports diffuse pleuritic-like chest pain all over anterior chest. She appears to be uncomfortable. She is requesting her scheduled pain medication. I answered multiple questions for her and her family prior to her seeing pulmonology and prior to her bronchoscopy. Patient will need another day in hospital to get pain under control. - Constitutional Vitals: Temp Pulse Resp BP Pulse Ox 98.0 F 91 12 139/83 93 L 01/24/17 18:37 01/24/17 18:37 01/24/17 18:37 01/24/17 18:37 01/24/17 18:37 General appearance: Present: cooperative, mild distress, A&O X 3, obese, answers questions appropriately - Head Head exam: Present: normal inspection - Neck Neck exam general surgery: Present: normal inspection. Absent: lymphadenopathy , tenderness - Respiratory Respiratory exam: Present: decreased breath sounds, wheezes Additional comments: Data pain, patient is unable to take deep breaths. Faint wheezing heard posterior bases. - Cardiovascular Cardiovascular exam: Present: RRR, +S1, +S2. Absent: diastolic murmur, systolic murmur - Expanded Cardiovascular Exam Peripheral pulses: 2+: Dorsalis Pedis (L) PM, Dorsalis Pedis (R) PM - Extremities Exam Extremities exam: Present: normal capillary refill, normal inspection, warm, radial pulses palpable and symetrical. Absent: pedal edema, tenderness - Neurological Exam Neurological exam: Present: alert, oriented X3, no focal deficits, strengths equal and symetr throughout. Absent: facial droop, speech deficit Internal Medicine: Result - Labs CBC & Chem 7: 01/24/17 04:06 01/24/17 04:06 - ABG Interpretation ABG results: PT/INR, D-dimer PT 10.6 Seconds (9.4-12.1) 01/22/17 01:17 D-Dimer 610 ng/mLFEU (0-500) H 01/21/17 17:47 - VTE Documentation of Mechanical Device: Graduated compression elastic hosiery Consult Discharge Plan - Plan Referrals: Tara Maciel CNP [Primary Care Provider] - 01/28/17 1:45 pm
[2017-01-24] MEDS: Temazepam 15 MG CAPSULE PO SCH (21:10)
[2017-01-24] MEDS: Acetaminophen 325 MG TABLET PO PRN (22:34)
[2017-01-25] MEDS: Ipratropium/Albuterol Neb 3 ML IH SCH ×4 (04:46→23:08)
[2017-01-25] MEDS: Acetylcysteine 10% 2 ML INHSOL IH SCH ×3 (04:47→23:08)
[2017-01-25] MEDS: *HR* Morphine 2 MG/ML SYRINGE IVP PRN ×4 (04:55→21:33)
[2017-01-25 06:14] LABS: Basophils % 0.3 %; Eosinophils # 0.2 K/mcL (0.0-0.6); Eosinophils % 1.6 %; Hematocrit 40.8 % (35.3-44.9); Immature Granulocytes % 0.6 % (0-4); Lymphocytes # 2.3 K/mcL (0.6-4.6); Lymphocytes % 20.1 %; Mean Corpuscular HGB Conc 31.9 g/dL (31.6-35.5); Mean Corpuscular Hemoglobin 30.8 pg (28.0-33.3); Mean Corpuscular Volume 96.7 fL (83.0-100.0); Mean Platelet Volume 10.4 fL (9.4-12.4); Monocytes # 0.6 K/mcL (0.0-1.3); Monocytes % 5.1 %; Neutrophils # 8.2 K/mcL (1.6-8.9); Platelet Count 290 K/mcL (140-400); Red Blood Count 4.22 M/mcL (3.82-4.97); Segmented Neutrophils % 72.3 %
[2017-01-25 06:28] LABS: BUN/Creatinine Ratio 20 (6-26); Blood Urea Nitrogen 14 mg/dL (7-20); Calcium 8.5 mg/dL (8.6-10.8); Carbon Dioxide 29 mEq/L (19-29); Chloride 105 mEq/L (98-109); Glucose 97 mg/dL (70-99); Osmolality,Calculated 294 (280-300); Potassium 3.9 mEq/L (3.5-4.5); Sodium 142 mEq/L (136-145); eGFR For African Americans > 60 (> 60); eGFR For Non-African Americans > 60 (> 60)
--- NOTE | 2017-01-25 08:30 | Pulmonology Progress Note ---
Date of Encounter: 01/25/17 Time of Encounter: 07:30 Assessment and Plan (1) Mucus plugging of bronchi Current Visit: Yes Status: Resolved Patient had bronchoscopy and she feels better now even though her CXR still shows atelectasis. She will need mobilization and encourage deep cough and incentive spirometry. Continue bronchodilators. (2) Atelectasis of left lung Current Visit: Yes Status: Chronic Suspect this chronic and same recommendations. She may need chest PT or Acapella. Subjective Principal diagnosis: Abnormal CT scan of the chest Interval history: Patient is feeling better now and her chest pain is better and her breathing is better even though her CXR still shows atelectasis. Objective PUL Vital signs: Last Vital Signs Temp 97.4 F L 01/25/17 07:36 Pulse 89 01/25/17 07:36 Resp 18 01/25/17 07:36 BP 141/91 01/25/17 07:36 Pulse Ox 97 01/25/17 07:36 General appearance: no acute distress Eyes: nonicteric ENT: oropharynx dry Mallampati (class): 3 Neck: supple Effort: normal Auscultation: left: rhonchi, right: clear Percussion: bilateral: not dull Cardiovascular: regular rate and rhythm Gastrointestinal: normoactive bowel sounds Extremities: no cyanosis normal mental status, non-focal exam mood appropriate Results - Laboratory Findings CBC and BMP: 01/25/17 05:15 01/25/17 05:15 PT/INR, D-dimer PT 10.6 Seconds (9.4-12.1) 01/22/17 01:17 D-Dimer 610 ng/mLFEU (0-500) H 01/21/17 17:47 Abnormal lab findings: Abnormal lab results WBC 11.3 K/mcL (4.3-11.1) H 01/25/17 05:15 APTT 21.5 Seconds (26.0-36.0) L 01/22/17 01:17 D-Dimer 610 ng/mLFEU (0-500) H 01/21/17 17:47 Calcium 8.5 mg/dL (8.6-10.8) L 01/25/17 05:15 Globulin 3.8 g/dL (2.4-3.5) H 01/22/17 01:17 Albumin/Globulin Ratio 0.9 (1.1-2.2) L 01/22/17 01:17 Cholesterol 261 mg/dL (< 200) H 01/22/17 01:17 LDL Cholesterol, Calc 172 mg/dL (0-99) H 01/22/17 01:17 HDL Cholesterol 68 mg/dL (40-59) H 01/22/17 01:17 Fluid Appearance Cloudy (Clear) A 01/24/17 13:20 - Microbiology Findings Microbiology Findings: Microbiology, Last 48 Hours 01/24/17 13:20 Gram Stain - Final Left Lower Lobe Lung - Diagnostic Findings Chest x-ray: report reviewed, image reviewed - Clinical Findings Intake & Output: Intake & Output 01/24/17 01/25/17 01/25/17 23:59 07:59 15:59 Intake Total 850 / 850 100 / 100 Output Total 550 / 550 Balance 300 / 300 100 / 100 Weight 120.3 kg - VTE Documentation of Mechanical Device: Graduated compression elastic hosiery Consult Discharge Plan - Plan Referrals: Tara Maciel, TENSIONING MACHINE OPERATOR [Primary Care Provider] - 01/28/17 1:45 pm
[2017-01-25] MEDS: predniSONE 20 MG TABLET PO SCH (08:59)
[2017-01-25] MEDS: Diltiazem CD (24hr) 180 MG CAPSULE PO SCH (08:59)
[2017-01-25] MEDS: Loratadine 10 MG TABLET PO SCH (09:00)
[2017-01-25] MEDS: Fluticasone Propionate Nasal 50 MCG/SPRAY BOTTLE NS SCH (09:00)
[2017-01-25] MEDS: Baclofen 10 MG TABLET PO SCH ×3 (09:00→21:33)
[2017-01-25] MEDS: (Linaclotide [Linzess] 290 MCG) PO SCH (09:01)
[2017-01-25] MEDS: Psyllium 1 PACKET POWD.PACK PO SCH ×2 (09:01→21:34)
[2017-01-25] MEDS: 0.9 % Sodium Chloride 1,000 ML IVC SCH ×2 (09:45→14:46)
[2017-01-25] MEDS: Acetaminophen 325 MG TABLET PO PRN (14:39)
--- NOTE | 2017-01-25 17:58 | Internal Med Progress Note ---
Date of Encounter: 01/25/17 Time of Encounter: 17:55 - Assessment and plan (1) Chest pain Current Visit: Yes Status: Acute Assessment and plan: Patient is still having same pleuritic like chest pain that she has been having since arrival. 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 Continue current pain management Continue to monitor vital signs Qualifiers: Chest pain type: chest pain on breathing Qualified Code(s): R07.1 - Chest pain on breathing (2) Atelectasis of left lung Current Visit: Yes Status: Acute (3) Mucus plugging of bronchi Current Visit: Yes Status: Acute Assessment and plan: She is showing a gram-negative campbell in the bronchial washings from the bronchoscopy. Underwent a double up her Rocephin to 1 g IV twice daily for the time being. Awaiting final identification. She continues to require 4 L of nasal cannula oxygen. I am hoping that she will be able to taper down here fairly soon. (4) Morbid obesity with BMI of 40.0-44.9, adult Current Visit: Yes Status: Chronic (5) Acute respiratory failure with hypoxia Current Visit: Yes Status: Acute (6) Discoid atelectasis Current Visit: Yes Status: Acute - Time Spent With Patient 25 - 35 minutes - Subjective Interval history: She states she feels a little bit better. However she still relatively hypoxic. Still having cough. She does have a little sputum coming up. Bronchial washings are growing a gram-negative campbell. Identification pending - Constitutional Vitals: Temp Pulse Resp BP Pulse Ox 98.2 F 82 17 138/82 94 L 01/25/17 15:22 01/25/17 15:22 01/25/17 15:22 01/25/17 15:22 01/25/17 15:22 General appearance: Present: cooperative, A&O X 3, obese, answers questions appropriately - Respiratory Respiratory exam: Present: decreased breath sounds, rhonchi, wheezes - Cardiovascular Cardiovascular exam: Present: RRR Internal Medicine: Result - Labs CBC & Chem 7: 01/25/17 05:15 01/25/17 05:15 Labs: Short CBC 01/25/17 Range/Units 05:15 WBC 11.3 H (4.3-11.1) K/mcL Hgb 13.0 (11.5-15.4) g/dL Hct 40.8 (35.3-44.9) % Plt Count 290 (140-400) K/mcL Neutrophils # 8.2 (1.6-8.9) K/mcL BMP 01/25/17 05:15 Sodium 142 Potassium 3.9 Chloride 105 Carbon Dioxide 29 BUN 14 Creatinine 0.69 Glucose 97 Calcium 8.5 L - ABG Interpretation ABG results: PT/INR, D-dimer PT 10.6 Seconds (9.4-12.1) 01/22/17 01:17 D-Dimer 610 ng/mLFEU (0-500) H 01/21/17 17:47 - Impressions Impressions Chest X-Ray 01/25/17 07:00 IMPRESSION: Mild bibasilar atelectasis, which has progressed since the prior examination. D/ / 01/25/2017 07:32:34 Ayde Garcia MD / Lizette Grubbs Interpreting Provider: Ayde Garcia MD - VTE Documentation of Mechanical Device: Graduated compression elastic hosiery Consult Discharge Plan - Plan Referrals: Tara Maciel CNP [Primary Care Provider] - 01/28/17 1:45 pm
[2017-01-25] MEDS: diazePAM 5 MG TABLET PO PRN (21:33)
[2017-01-25] MEDS: Temazepam 15 MG CAPSULE PO SCH (21:33)
[2017-01-26] MEDS: *HR* Morphine 2 MG/ML SYRINGE IVP PRN (03:00)
[2017-01-26] MEDS: Ipratropium/Albuterol Neb 3 ML IH SCH ×4 (04:10→22:54)
[2017-01-26] MEDS: Acetylcysteine 10% 2 ML INHSOL IH SCH ×3 (04:10→23:02)
[2017-01-26] MEDS: Ondansetron 4 MG/2 ML VIAL IVP PRN (04:58)
[2017-01-26 04:59] LABS: Basophils % 0.1 %; Eosinophils # 0.1 K/mcL (0.0-0.6); Eosinophils % 0.7 %; Hematocrit 37.7 % (35.3-44.9); Hemoglobin 12.3 g/dL (11.5-15.4); Immature Granulocytes % 1.3 % (0-4); Lymphocytes # 1.6 K/mcL (0.6-4.6); Mean Corpuscular HGB Conc 32.6 g/dL (31.6-35.5); Mean Corpuscular Hemoglobin 31.5 pg (28.0-33.3); Mean Corpuscular Volume 96.4 fL (83.0-100.0); Mean Platelet Volume 10.3 fL (9.4-12.4); Monocytes # 0.7 K/mcL (0.0-1.3); Monocytes % 5.9 %; Neutrophils # 9.6 K/mcL (1.6-8.9); Platelet Count 280 K/mcL (140-400); Red Blood Count 3.91 M/mcL (3.82-4.97)
[2017-01-26 05:12] LABS: BUN/Creatinine Ratio 19 (6-26); Blood Urea Nitrogen 13 mg/dL (7-20); Calcium 8.8 mg/dL (8.6-10.8); Carbon Dioxide 26 mEq/L (19-29); Chloride 105 mEq/L (98-109); Glucose 135 mg/dL (70-99); Osmolality,Calculated 290 (280-300); Potassium 3.7 mEq/L (3.5-4.5); Sodium 139 mEq/L (136-145); eGFR For African Americans > 60 (> 60); eGFR For Non-African Americans > 60 (> 60)
[2017-01-26] MEDS: 0.9 % Sodium Chloride 1,000 ML IVC SCH ×2 (08:16)
[2017-01-26] MEDS: Baclofen 10 MG TABLET PO SCH ×3 (08:18→21:07)
[2017-01-26] MEDS: Loratadine 10 MG TABLET PO SCH (08:18)
[2017-01-26] MEDS: predniSONE 20 MG TABLET PO SCH (08:18)
[2017-01-26] MEDS: Psyllium 1 PACKET POWD.PACK PO SCH ×2 (08:18→21:06)
[2017-01-26] MEDS: (Linaclotide [Linzess] 290 MCG) PO SCH (08:19)
[2017-01-26] MEDS: Diltiazem CD (24hr) 180 MG CAPSULE PO SCH (08:20)
[2017-01-26] MEDS: Fluticasone Propionate Nasal 50 MCG/SPRAY BOTTLE NS SCH (08:24)
[2017-01-26] MEDS: diazePAM 5 MG TABLET PO PRN ×2 (08:36→21:07)
[2017-01-26] MEDS: Budesonide/Formoterol 160/4.5 MDI IH SCH (12:19)
--- NOTE | 2017-01-26 15:38 | Internal Med Progress Note ---
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 started on levaquin right now. If her white count is down tomorrow and if she is feeling somewhat better we will be getting her discharge to home tomorrow on Levaquin (3) Mucus plugging of bronchi Current Visit: Yes Status: Acute (4) Morbid obesity with BMI of 40.0-44.9, adult Current Visit: Yes Status: Chronic (5) Acute respiratory failure with hypoxia Current Visit: Yes Status: Acute (6) Discoid atelectasis Current Visit: Yes Status: Acute - Subjective Interval history: She is complaining of pain with deep inspiration. She states she has not been able to get her incentive brought her over 800 which was at 1100 yesterday when she was using it. O2 sats are improving. Sputum culture grew a sternophilia species that has been resistant to cephalosporins. She will need an antibiotic change. She has had an increase in her white count and since this gram-negative bacteria is resistant to cephalosporins we will get her switched over to Levaquin - Constitutional Vitals: Temp Pulse Resp BP Pulse Ox 97.5 F L 76 16 113/75 92 L 01/26/17 11:00 01/26/17 11:00 01/26/17 11:00 01/26/17 11:00 01/26/17 11:00 General appearance: Present: cooperative, A&O X 3, obese, answers questions appropriately - Respiratory Respiratory exam: Present: decreased breath sounds, wheezes. Absent: prolonged expiratory phase, rhonchi Internal Medicine: Result - Labs CBC & Chem 7: 01/26/17 04:38 01/26/17 04:38 Labs: Short CBC 01/26/17 Range/Units 04:38 WBC 12.2 H (4.3-11.1) K/mcL Hgb 12.3 (11.5-15.4) g/dL Hct 37.7 (35.3-44.9) % Plt Count 280 (140-400) K/mcL Neutrophils # 9.6 H (1.6-8.9) K/mcL BMP 01/26/17 04:38 Sodium 139 Potassium 3.7 Chloride 105 Carbon Dioxide 26 BUN 13 Creatinine 0.67 Glucose 135 H Calcium 8.8 - ABG Interpretation ABG results: PT/INR, D-dimer PT 10.6 Seconds (9.4-12.1) 01/22/17 01:17 D-Dimer 610 ng/mLFEU (0-500) H 01/21/17 17:47 - VTE Documentation of Mechanical Device: Graduated compression elastic hosiery Consult Discharge Plan - Plan Referrals: Tara Maciel CNP [Primary Care Provider] - 01/28/17 1:45 pm
[2017-01-26] MEDS: *HR* OxyCODONE Immed Rel 5 MG TABLET PO PRN ×2 (15:39→21:53)
[2017-01-26] MEDS: Levofloxacin 750 MG/150 ML 750 MG/150 ML BAG IVPB SCH (16:01)
[2017-01-26] MEDS: Temazepam 15 MG CAPSULE PO SCH (21:07)
[2017-01-27] MEDS: Ipratropium/Albuterol Neb 3 ML IH SCH ×4 (04:39→22:21)
[2017-01-27 05:19] LABS: Basophils % 0.3 %; Eosinophils # 0.1 K/mcL (0.0-0.6); Eosinophils % 0.6 %; Hematocrit 40.4 % (35.3-44.9); Hemoglobin 12.8 g/dL (11.5-15.4); Immature Granulocytes % 1.8 % (0-4); Lymphocytes # 1.6 K/mcL (0.6-4.6); Mean Corpuscular HGB Conc 31.7 g/dL (31.6-35.5); Mean Corpuscular Hemoglobin 31.1 pg (28.0-33.3); Mean Corpuscular Volume 98.1 fL (83.0-100.0); Mean Platelet Volume 10.4 fL (9.4-12.4); Monocytes # 0.8 K/mcL (0.0-1.3); Monocytes % 6.1 %; Neutrophils # 9.8 K/mcL (1.6-8.9); Platelet Count 303 K/mcL (140-400); Red Blood Count 4.12 M/mcL (3.82-4.97); Red Cell Distribution Width 13.9 % (11.5-14.5); Segmented Neutrophils % 78.2 %
[2017-01-27 05:38] LABS: BUN/Creatinine Ratio 22 (6-26); Blood Urea Nitrogen 16 mg/dL (7-20); Calcium 8.7 mg/dL (8.6-10.8); Carbon Dioxide 23 mEq/L (19-29); Chloride 103 mEq/L (98-109); Glucose 120 mg/dL (70-99); Osmolality,Calculated 292 (280-300); Potassium 3.7 mEq/L (3.5-4.5); Sodium 140 mEq/L (136-145); eGFR For African Americans > 60 (> 60); eGFR For Non-African Americans > 60 (> 60)
[2017-01-27] MEDS: Budesonide/Formoterol 160/4.5 MDI IH SCH ×2 (05:45→23:41)
[2017-01-27] MEDS: *HR* OxyCODONE Immed Rel 5 MG TABLET PO PRN ×3 (05:52→20:38)
[2017-01-27] MEDS: predniSONE 20 MG TABLET PO SCH (09:42)
[2017-01-27] MEDS: Loratadine 10 MG TABLET PO SCH (09:42)
[2017-01-27] MEDS: Diltiazem CD (24hr) 180 MG CAPSULE PO SCH (09:42)
[2017-01-27] MEDS: (Linaclotide [Linzess] 290 MCG) PO SCH (09:42)
[2017-01-27] MEDS: Baclofen 10 MG TABLET PO SCH ×3 (09:42→20:37)
[2017-01-27] MEDS: Fluticasone Propionate Nasal 50 MCG/SPRAY BOTTLE NS SCH (09:43)
[2017-01-27] MEDS: Psyllium 1 PACKET POWD.PACK PO SCH ×2 (09:57→20:40)
[2017-01-27] MEDS: diazePAM 5 MG TABLET PO PRN ×2 (10:22→20:55)
[2017-01-27] MEDS: Acetylcysteine 10% 2 ML INHSOL IH SCH ×3 (10:31→22:21)
[2017-01-27] MEDS: Levofloxacin 750 MG/150 ML 750 MG/150 ML BAG IVPB SCH (15:28)
--- NOTE | 2017-01-27 17:43 | Internal Med Progress Note ---
Date of Encounter: 01/27/17 (n) Time of Encounter: 17:41 - Assessment and plan (1) Chest pain Current Visit: Yes Status: Acute Qualifiers: Chest pain type: chest pain on breathing Qualified Code(s): R07.1 - Chest pain on breathing (2) Atelectasis of left lung Current Visit: Yes Status: Acute (3) Mucus plugging of bronchi Current Visit: Yes Status: Acute (4) Morbid obesity with BMI of 40.0-44.9, adult Current Visit: Yes Status: Chronic (5) Acute respiratory failure with hypoxia Current Visit: Yes Status: Acute (6) Discoid atelectasis Current Visit: Yes Status: Acute (7) Pneumonia due to Gram-negative bacteria Current Visit: Yes Status: Acute Assessment and plan: She grew a Sternophilia species. It is sensitive to Levaquin but resistant to the cephalosporins tested . I am going to discontinue IV antibiotics and put her on a by mouth dose of Levaquin If white count is still going down, her O2 sats are still doing well, and she seems to be feeling no worse than today she should be able to go home tomorrow. (8) DARCIE (obstructive sleep apnea) Current Visit: Yes Status: Chronic Assessment and plan: She has a history of obstructive sleep apnea. She also has evidence of poor air exchange even on a normal basis. She certainly can use CPAP overnight at home. From my understanding she has had a sleep apnea test done in the past. It is obvious she needs CPAP at home - Subjective Interval history: She is complaining of pain with deep inspiration. She states she has not been able to get her incentive brought her over 800 which was at 1100 yesterday when she was using it. O2 sats are improving. Sputum culture grew a sternophilia species that has been resistant to cephalosporins. On Levaquin currently. Her O2 sats are improving. She was on room air while she was eating dinner and she was running 94-95% at the bedside. She is now down to 2 L on a regular basis now. - Constitutional Vitals: Temp Pulse Resp BP Pulse Ox 97.4 F L 86 16 139/86 96 01/27/17 15:22 01/27/17 15:22 01/27/17 15:22 01/27/17 15:22 01/27/17 15:22 General appearance: Present: cooperative, A&O X 3, obese, answers questions appropriately - Respiratory Respiratory exam: Present: decreased breath sounds (She has poor air movement but I do not hear any other sounds), CTAB. Absent: rales, rhonchi, wheezes - Cardiovascular Cardiovascular exam: Present: RRR - Skin Skin exam: Present: dry, normal color, warm Internal Medicine: Result - Labs CBC & Chem 7: 01/27/17 04:00 01/27/17 04:00 Labs: Short CBC 01/27/17 Range/Units 04:00 WBC 12.5 H (4.3-11.1) K/mcL Hgb 12.8 (11.5-15.4) g/dL Hct 40.4 (35.3-44.9) % Plt Count 303 (140-400) K/mcL Neutrophils # 9.8 H (1.6-8.9) K/mcL BMP 01/27/17 04:00 Sodium 140 Potassium 3.7 Chloride 103 Carbon Dioxide 23 BUN 16 Creatinine 0.73 Glucose 120 H Calcium 8.7 - ABG Interpretation ABG results: PT/INR, D-dimer PT 10.6 Seconds (9.4-12.1) 01/22/17 01:17 D-Dimer 610 ng/mLFEU (0-500) H 01/21/17 17:47 - Impressions Impressions Chest X-Ray 01/25/17 07:00 IMPRESSION: Mild bibasilar atelectasis, which has progressed since the prior examination. D/ / 01/25/2017 07:32:34 Ayde Garcia MD / Lizette Grubbs Interpreting Provider: Ayde Garcia MD - VTE Documentation of Mechanical Device: Graduated compression elastic hosiery Consult Discharge Plan - Plan Referrals: Tara Maciel CNP [Primary Care Provider] - 01/28/17 1:45 pm
[2017-01-27] MEDS: Temazepam 15 MG CAPSULE PO SCH (20:37)
[2017-01-28 03:52] LABS: Basophils % 0.2 %; Eosinophils % 0.2 %; Hematocrit 39.3 % (35.3-44.9); Hemoglobin 12.5 g/dL (11.5-15.4); Immature Granulocytes % 1.5 % (0-4); Lymphocytes # 1.2 K/mcL (0.6-4.6); Lymphocytes % 9.2 %; Mean Corpuscular HGB Conc 31.8 g/dL (31.6-35.5); Mean Corpuscular Hemoglobin 30.6 pg (28.0-33.3); Mean Corpuscular Volume 96.1 fL (83.0-100.0); Mean Platelet Volume 10.1 fL (9.4-12.4); Monocytes # 0.9 K/mcL (0.0-1.3); Monocytes % 6.6 %; Neutrophils # 10.7 K/mcL (1.6-8.9); Platelet Count 305 K/mcL (140-400); Red Blood Count 4.09 M/mcL (3.82-4.97); Segmented Neutrophils % 82.3 %
[2017-01-28] MEDS: Acetylcysteine 10% 2 ML INHSOL IH SCH (04:05)
[2017-01-28] MEDS: Ipratropium/Albuterol Neb 3 ML IH SCH ×2 (04:05→10:19)
[2017-01-28] MEDS: *HR* OxyCODONE Immed Rel 5 MG TABLET PO PRN ×2 (07:39→14:12)
[2017-01-28] MEDS: Psyllium 1 PACKET POWD.PACK PO SCH (07:40)
[2017-01-28] MEDS: (Linaclotide [Linzess] 290 MCG) PO SCH (07:44)
[2017-01-28] MEDS: Loratadine 10 MG TABLET PO SCH (07:44)
[2017-01-28] MEDS: Fluticasone Propionate Nasal 50 MCG/SPRAY BOTTLE NS SCH (07:44)
[2017-01-28] MEDS: Diltiazem CD (24hr) 180 MG CAPSULE PO SCH (07:44)
[2017-01-28] MEDS: predniSONE 20 MG TABLET PO SCH (07:44)
[2017-01-28] MEDS: Baclofen 10 MG TABLET PO SCH (07:44)
[2017-01-28] MEDS: diazePAM 5 MG TABLET PO PRN (14:14)
--- NOTE | 2017-01-28 14:35 | Discharge Summary ---
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 Sensitive to levofloxacin and Bactrim. We will continue levofloxacin upon discharge (2) Pneumonia due to Gram-negative bacteria Priority: Primary Status: Acute (3) Chest pain Priority: Primary Status: Resolved Comments: Patient denied chest pain on the day of discharge. Qualifiers: Chest pain type: chest pain on breathing Qualified Code(s): R07.1 - Chest pain on breathing (4) Obesity hypoventilation syndrome Priority: Primary Status: Suspected (5) Atelectasis of left lung Priority: Primary Status: Acute Comments: Status post bronchoscopy with bronchial alveolar lavage. Patient was on room air on day of discharge and tolerating it well. She continued to use 2 L per nasal cannula as needed which is consistent with her baseline. (6) Mucus plugging of bronchi Priority: Primary Status: Resolved (7) DARCIE (obstructive sleep apnea) Priority: Secondary Status: Chronic Comments: Appears to be compliant with CPAP; follow-up outpatient (8) Acute respiratory failure with hypoxia Priority: Primary Status: Acute Comments: Acute on chronic respiratory failure. No increased need for oxygen. 2 L per nasal cannula at home as well as CPAP while asleep. Follow-up outpatient. (9) Discoid atelectasis Priority: Primary Status: Acute Comments: Seen and evaluated by pulmonology who cleared her for outpatient follow-up. (10) Acute bronchitis and bronchiolitis Priority: Primary Status: Acute (11) COPD (chronic obstructive pulmonary disease) Priority: Secondary Status: Chronic Qualifiers: COPD type: unspecified COPD Qualified Code(s): J44.9 - Chronic obstructive pulmonary disease, unspecified (12) Morbid obesity with BMI of 45.0-49.9, adult Priority: Secondary Status: Chronic - Discharge Medications Prescriptions: Benzonatate [Tessalon] 200 mg PO TID PRN #30 capsule PRN Reason: Cough Diazepam [Valium] 5 mg PO TID PRN #15 tablet PRN Reason: Anxiety GuaiFENesin ER [Mucinex] 600 mg PO BID #20 tbbp.12hr Levofloxacin 750 mg PO Q24H #12 tablet Oxycodone HCl 10 mg PO Q6H PRN #15 tab PRN Reason: Pain PredniSONE 10 mg PO DAILY #41 tablet Home Medications: Albuterol Sulfate [Ventolin Hfa] 2 puff IH Q4H PRN 01/21/17 [History] Baclofen [Lioresal] 10 mg PO TID 01/21/17 [History] Cyanocobalamin (Vitamin B-12) [Vitamin B12] 1,000 mcg PO DAILY 01/21/17 [History ] Diltiazem CD (24hr) [Cardizem CD] 180 mg PO DAILY 01/21/17 [History] Escitalopram [Lexapro] 10 mg PO DAILY 01/21/17 [History] Fluticasone Propionate Nasal [Flonase] 50 mcg NS DAILY 01/21/17 [History] Fluticasone/Salmeterol [Advair 500-50 Diskus] 1 each IH BID 01/21/17 [History] Lidocaine Patch [Lidoderm 5% patch] 1 each TP DAILY 01/21/17 [History] Linaclotide [Linzess] 290 mcg PO QAM 01/21/17 [History] Lisinopril [Zestril] 10 mg PO DAILY 01/21/17 [History] Loratadine [Claritin] 10 mg PO DAILY 01/21/17 [History] Meloxicam 7.5 mg PO DAILY 01/21/17 [History] Montelukast [Singulair] 10 mg PO HS 01/21/17 [History] Multivitamin [Multi-Day Vitamins] 1 each PO DAILY 01/21/17 [History] Omeprazole [PriLOSEC] 20 mg PO DAILY 01/21/17 [History] Pravastatin Sodium [Pravachol] 40 mg PO HS 01/21/17 [History] Promethazine [Phenergan] 25 mg PO Q6H PRN 01/21/17 [History] Promethazine [Phenergan] 25 mg RC Q8H PRN 01/21/17 [History] Psyllium Husk [Daily Fiber] 1.56 gm PO BID 01/21/17 [History] Temazepam [Restoril] 15 mg PO HS 01/21/17 [History] Tiotropium [Spiriva] 18 mcg IH QAM 01/21/17 [History] Zolmitriptan [Zomig] 2.5 mg PO DAILY PRN 01/21/17 [History] Benzonatate [Tessalon] 200 mg PO TID PRN #30 capsule 01/28/17 [Rx] Diazepam [Valium] 5 mg PO TID PRN #15 tablet 01/28/17 [Rx] GuaiFENesin ER [Mucinex] 600 mg PO BID #20 tbbp.12hr 01/28/17 [Rx] Levofloxacin 750 mg PO Q24H #12 tablet 01/28/17 [Rx] Oxycodone HCl 10 mg PO Q6H PRN #15 tab 01/28/17 [Rx] PredniSONE 10 mg PO DAILY #41 tablet 01/28/17 [Rx] Allergies/Adverse Reactions: Allergies calcium [From DHEA] Allergy (Verified 02/13/16 19:00) Hives calcium carbonate [From DHEA] Allergy (Verified 02/13/16 19:00) Hives prasterone (DHEA) [From DHEA] Allergy (Verified 02/13/16 19:00) Hives prochlorperazine [From Compazine] Allergy (Verified 02/13/16 19:00) Hives sumatriptan [From Imitrex] Allergy (Verified 02/13/16 19:00) Hives Date of admission: 01/24/17 12:53 Primary care physician: Tara Maciel CNP Consults: 01/25/17 12:11 Consult to Aerial Installer [CONS] Routine Reason for SW Consult: Home O2 needs increased from 2L to 4L Discharging clinician: Sylvia Benton Anticipated date of discharge: 01/28/17 - Patient Status Disposition: Home, Self-Care Condition: Good Functional capacity at discharge: independent ambulation Overall status at discharge: patient is progressing back to baseline - Discharge Instructions Follow Up With: Tara Maciel CNP [Primary Care Provider] - 01/28/17 1:45 pm Forms: ED Satisfaction Letter Additional Instructions: Follow-up with primary as scheduled - Diet and Activity Activity: increase activity as tolerated Diet: low fat, low cholesterol, low salt diet Hospital course: Ms. Pastor is a 61 year old female with past medical history of chronic back pain , asthma, COPD, DARCIE on CPAP, GERD, hypertension, migraine, allergic rhinitis, irritable bowel syndrome, tobacco abuse, morbid obesity. Patient presented to the emergency department chief complaint of chest pain and gotten progressively worse associated with shortness of breath. She stated the pain radiated to her back. She states she does not have a primary care provider. Workup in the emergency department unremarkable. Chest x-ray negative. Patient was admitted to the hospitalist service for further evaluation and management. Chest CTA negative for PE however revealed collapse of the left lower lobe likely secondary to mucous plugging with possible pneumonia. Pulmonology was brought on board he then proceeded with a bronchoscopy and a bronchial alveolar lavage. Patient's aeration begin to improve after this procedure. Repeat chest x-ray however revealing increased bibasilar atelectasis and the patient was started on incentive spirometry. On examination, patient not taking deep breaths, suspect obesity hypoventilation syndrome is playing a role. Patient was initially treated with azithromycin and ceftriaxone. Respiratory culture from her bronchoscopy revealed stenotrophomonas maltophilia which was sensitive to levofloxacin and Bactrim. She was then transitioned over to Levaquin. At home , patient is on 2 L per nasal cannula as needed and CPAP at night for her DARCIE. On day of discharge, she denied shortness of breath above her norm and she was tolerating room air at time of discharge. Pulmonology signed off and cleared her for outpatient follow-up. She was discharged home in stable condition with close outpatient follow-up recommended. Of note, at time of discharge, patient was requesting prescriptions for Percocet and Valium, [facility] report checked out okay and she was given a couple day supply. ITS Impressions Chest X-Ray 01/21/17 17:17 IMPRESSION: 1. No acute cardiopulmonary disease. D/ / Asif De Leon MD / Asif De Leon MD Interpreting Provider: Asif De Leon MD Chest CTA 01/21/17 18:28 IMPRESSION: No evidence of pulmonary embolism. Lobar collapse of the left lower lobe, may be related to mucous plugging. Superimposed infection is difficult to exclude. Recommend follow-up to resolution and exclude endobronchial lesions. Discoid atelectasis at the bilateral lung bases. D/ / Shadi Gongora MD / Shadi Gongora MD Interpreting Provider: Shadi Gongora MD Chest X-Ray 01/25/17 07:00 IMPRESSION: Mild bibasilar atelectasis, which has progressed since the prior examination. D/ / 01/25/2017 07:32:34 Ayde Garcia MD / Lizette Grubbs Interpreting Provider: Ayde Garcia MD - Time Spent with Patient Total time spent providing and/or coordinating discharge services: - Constitutional Vitals: Temp Pulse Resp BP Pulse Ox 98.1 F 84 20 128/84 94 L 01/28/17 11:05 01/28/17 11:05 01/28/17 11:05 01/28/17 11:05 01/28/17 11:05 General appearance: Present: cooperative, A&O X 3, morbidly obese, pleasant, no acute distress, answers questions appropriately - Head Head exam: Present: atraumatic, normocephalic - Eye Eye exam: Present: PERRL, conjuntiva pink, sclera anicteric Pupils: Present: PERRL - Neck Neck exam general surgery: Present: supple, trachea midline. Absent: lymphadenopathy - Respiratory Respiratory exam: Present: decreased breath sounds (fair to good aeration). Absent: accessory muscle use, rales, respiratory distress, rhonchi, wheezes - Cardiovascular Cardiovascular exam: Present: RRR, +S1, +S2. Absent: diastolic murmur, gallop, rubs, systolic murmur - GI/Abdominal GI/Abdominal exam: Present: normal bowel sounds, soft, no peritoneal signs. Absent: distended, tenderness - Extremities Exam Extremities exam: Present: warm, radial pulses palpable and symetrical. Absent : calf tenderness, cyanotic, pedal edema - Neurological Exam Neurological exam: Present: alert, CN II-XII intact, normal gait, oriented X3, no focal deficits, strengths equal and symetr throughout. Absent: pronater drift, facial droop, speech deficit - Skin Skin exam: Present: dry, intact, normal color, warm - VTE Documentation of Mechanical Device: Graduated compression elastic hosiery
[2017-01-28 15:05] VITALS: BP 145/98
[2017-01-28] MEDS ORDERED: levoFLOXacin 750 MG TABLET PO SCH (16:00)
== END 2017-01-28 16:02 | disposition home or self-care (01) | DRG 190 ==
LOC: 3BNU 17:03 → EMEROO 17:03 → 3BNU 23:56
PROVIDERS: ADMIT Internal Medicine; ATTEND Nurse Practitioner Family

== ENCOUNTER 2019-03-11 16:29 | Observation (INO) ==
[2019-03-11 17:04] LABS: Basophils # 0.1 K/mcL (0.0-0.2); Basophils % 0.4 %; Eosinophils # 0.6 K/mcL (0.0-0.6); Eosinophils % 4.3 %; Hematocrit 37.8 % (35.3-44.9); Hemoglobin 12.1 g/dL (11.5-15.4); Immature Granulocytes % 0.5 % (0-4); Lymphocytes # 1.2 K/mcL (0.6-4.6); Lymphocytes % 9.7 %; Mean Corpuscular Hemoglobin 30.3 pg (28.0-33.3); Mean Corpuscular Volume 94.5 fL (83.0-100.0); Mean Platelet Volume 10.2 fL (9.4-12.4); Monocytes # 0.6 K/mcL (0.0-1.3); Monocytes % 4.9 %; Neutrophils # 10.2 K/mcL (1.6-8.9); Platelet Count 358 K/mcL (140-400); Segmented Neutrophils % 80.2 %
[2019-03-11 17:25] LABS: BUN/Creatinine Ratio 20 (6-26); Blood Urea Nitrogen 14 mg/dL (8-23); Calcium 9.7 mg/dL (8.6-10.3); Carbon Dioxide 26 mEq/L (23-29); Chloride 106 mEq/L (98-107); Glucose 124 mg/dL (70-105); Osmolality,Calculated 294 (280-300); Potassium 3.7 mEq/L (3.5-5.1); Sodium 141 mEq/L (136-145); eGFR For Non-African Americans > 60 (> 60)
[2019-03-11 17:26] LABS: Troponin I < 0.03 ng/mL (< 0.04)
--- NOTE | 2019-03-11 19:59 | Emergency Department Note ---
Disposition Clinical Impression: Chest pain Qualifiers: Chest pain type: unspecified Qualified Code(s): R07.9 - Chest pain, unspecified Disposition: Admitted As Inpatient Condition: Good Time of Disposition: 18:30 General Adult HPI - General Chief complaint: ED Chest Pain Stated complaint: CP Time Seen by Provider: 03/11/19 16:40 Source: patient Mode of arrival: EMS Limitations: no limitations Nursing Notes Reviewed: Yes Vital Signs Reviewed: Yes - History of Present Illness HPI Narrative: 63-year-old female with past medical history of CAD status post left heart catheter with stent at the beginning of January presents for chief complaint of left-sided chest pressure that radiated across the right side of her chest with associated nausea and one episode of emesis. No diaphoresis. No exertional symptoms. She had mild associated shortness of breath. She states her symptoms are essentially remitted after 2 nitroglycerin tablets and 324 mg of aspirin prior to arrival. She denies any headache, confusion, syncope, cough or cold, abdominal pain, change in bowel movement or urination, rashes or edema. She has been taking her Plavix and aspirin as directed at home. She does get some chest pain intermittently usually resolves after 1 nitroglycerin. She is not on any long-acting nitroglycerin medications. Pain Scale: 5 - Related Data Home Medications Medication Instructions Recorded Confirmed Amlodipine Besylate 5 mg PO DAILY 12/31/18 01/05/19 Docusate Sodium [Dulcolax Stool 100 mg PO DAILY 12/31/18 01/05/19 Softener] Escitalopram [Lexapro] 20 mg PO DAILY 12/31/18 01/05/19 Fluticasone Propionate Nasal 50 mcg NS DAILY 12/31/18 01/05/19 [Flonase] Fluticasone/Salmeterol [Advair 1 each IH DAILY 12/31/18 01/05/19 500-50 Diskus] Loratadine [Allergy Relief] 10 mg PO DAILY 12/31/18 01/05/19 Losartan Potassium [Cozaar] 50 mg PO DAILY 12/31/18 01/05/19 Omeprazole 20 mg PO BID 12/31/18 01/05/19 Vitamin B Complex 1 each PO DAILY 12/31/18 01/05/19 Acetaminophen [Non-Aspirin Extra 1,000 mg PO Q6H 01/05/19 01/05/19 Strength] Acetaminophen/Diphenhydramine 1 each PO HS PRN 01/05/19 01/05/19 [Acetaminophen Pm Caplet] Baclofen [Lioresal] 10 mg PO TID 01/05/19 01/05/19 Biotin 5,000 mcg PO DAILY 01/05/19 01/05/19 Black Cohosh 540 mg PO DAILY 01/05/19 01/05/19 Carvedilol [Coreg] 6.25 mg PO BIDWM 01/05/19 01/05/19 Cholecalciferol (Vitamin D3) 50,000 unit PO QWEEK 01/05/19 01/05/19 [Vitamin D3] Multivit-Min/Iron/Folic Acid/K 1 each PO DAILY 01/05/19 01/05/19 [Adults Multivitamin Tablet] Psyllium Husk [Daily Fiber] 1 cap PO DAILY 01/05/19 01/05/19 Roflumilast [Daliresp] 500 mcg PO DAILY 01/05/19 01/05/19 Albuterol Sulfate [Ventolin Hfa] 18 gm IH 02/16/19 Cholecalciferol (Vitamin D3) 1,000 unit PO 02/16/19 [Vitamin D] Diclofenac Sodium [Voltaren] 100 gm TP 02/16/19 Meloxicam 1 tab PO DAILY 02/16/19 02/16/19 Tiotropium [place] [Spiriva 4 gm IH 02/16/19 Respimat] Previous Rx's Medication Instructions Recorded Aspirin 81 mg PO DAILY #60 tab.chew 01/06/19 Atorvastatin [Lipitor] 80 mg PO HS #30 tablet 01/06/19 Clopidogrel [Plavix] 75 mg PO DAILY #30 tablet 01/06/19 Albuterol Neb [Proventil Neb] 2.5 mg IH Q6HR PRN #50 vial.neb 02/16/19 Azelastine 0.1% Nasal [place] 120 spray NS BID #1 bottle 02/16/19 [Astelin] Azithromycin [Azithromycin 6-Tab 250 mg PO PER PKG DI #6 tab 02/16/19 Pack] Allergies Allergy/AdvReac Type Severity Reaction Status Date / Time dihydroergotamine Allergy Anaphylaxis Verified 12/31/18 14:35 haloperidol [From Haldol] Allergy Hives Verified 12/31/18 14:35 prochlorperazine Allergy Hives Verified 12/31/18 14:35 [From Compazine] sumatriptan [From Imitrex] Allergy Difficulty Verified 12/31/18 14:35 Breathing DHE Allergy Difficulty Uncoded 12/31/18 14:35 Breathing All systems ED: reviewed and negative except as stated. Review of Systems: As Per HPI Past Medical History - Past Medical History Attestation: Yes The following information was validated with the patient. 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 - Social History Smoking Status: Never smoker Smokeless Tobacco Status: No Alcohol use: Reports: occasionally Drug use: Reports: none, other Physical Exam - General Limitations: no limitations General appearance: alert, in no apparent distress - Head Head exam: atraumatic, normocephalic, normal inspection - Eye Eye exam: Present: normal appearance, PERRL, EOMI - ENT ENT exam: normal exam, normal oropharynx, mucous membranes moist - Neck Neck exam: Present: normal inspection, full ROM, trachea midline - Chest Chest inspection: Present: normal inspection, symmetric chest wall rise - Cardiovascular Cardiovascular exam: Present: regular rate, normal rhythm, normal heart sounds - Abdominal Exam Abdominal exam: Present: soft, Non-Tender. Absent: tenderness, distention, guarding, rebound, rigidity - Extremities Exam Extremities exam: Present: normal inspection. Absent: tenderness, pedal edema - Back Exam Back exam: Present: normal inspection, full ROM - Neurological Exam Neurological exam: Present: alert, oriented X3 - Psychiatric Psychiatric exam: Present: normal affect, normal mood - Skin Skin exam: Present: warm, dry Course Course Narrative: Patient noted very mild symptoms on arrival which resolved completely in the emergency department. She has nonischemic EKG. She has negative initial troponin and no acute abnormality on chest x-ray. With her history of heart disease and abrupt onset of symptoms she will be placed in observation for further evaluation and management. EKG interpreted by me shows normal sinus rhythm at 71 with normal axis and intervals. Normal ST segments. Essentially normal EKG. Vital Signs Temperature 98.7 F 03/11/19 16:30 Pulse Rate 74 03/11/19 16:30 Respiratory Rate 20 05/05/19 16:30 Blood Pressure 123/69 03/11/19 16:30 O2 Sat by Pulse Oximetry 99 03/11/19 16:30 Temperature 98.7 F 03/11/19 16:30 Pulse Rate 82 03/11/19 19:50 Respiratory Rate 18 03/11/19 19:50 Blood Pressure 103/92 03/11/19 19:50 O2 Sat by Pulse Oximetry 100 03/11/19 19:50 Oxygen Delivery Oxygen Delivery Room Air Medical Decision Making - Lab Data Lab results reviewed: Yes I reviewed the patient's lab results. Result diagrams: 03/11/19 16:51 03/11/19 16:51 Lab Results 03/11/19 03/11/19 Range/Units 16:51 16:51 WBC 12.7 H (4.3-11.1) K/mcL RBC 4.00 (3.82-4.97) M/mcL Hgb 12.1 (11.5-15.4) g/dL Hct 37.8 (35.3-44.9) % MCV 94.5 (83.0-100.0) fL MCH 30.3 (28.0-33.3) pg MCHC 32.0 (31.6-35.5) g/dL RDW 13.0 (11.5-14.5) % Plt Count 358 (140-400) K/mcL MPV 10.2 (9.4-12.4) fL Immature Gran % 0.5 (0-4) % Seg Neutrophils % 80.2 % Lymphocytes % 9.7 % Monocytes % 4.9 % Eosinophils % 4.3 % Basophils % 0.4 % Neutrophils # 10.2 H (1.6-8.9) K/mcL Lymphocytes # 1.2 (0.6-4.6) K/mcL Monocytes # 0.6 (0.0-1.3) K/mcL Eosinophils # 0.6 (0.0-0.6) K/mcL Basophils # 0.1 (0.0-0.2) K/mcL Sodium 141 (136-145) mEq/L Potassium 3.7 (3.5-5.1) mEq/L Chloride 106 (98-107) mEq/L Carbon Dioxide 26 (23-29) mEq/L BUN 14 (8-23) mg/dL Creatinine 0.70 (0.60-1.20) mg/dL Est GFR ( Amer) > 60 (> 60) Est GFR (Non-Af Amer) > 60 (> 60) BUN/Creatinine Ratio 20 (6-26) Glucose 124 H (70-105) mg/dL Calculated Osmolality 294 (280-300) Calcium 9.7 (8.6-10.3) mg/dL Troponin I < 0.03 (< 0.04) ng/mL
[2019-03-11] MEDS ORDERED: Acetaminophen 325 MG TABLET PO PRN (21:40)
[2019-03-11] MEDS ORDERED: *HR* OxyCODONE Immed Rel 5 MG TABLET PO PRN (21:40)
[2019-03-11] MEDS ORDERED: *HR* HYDROcodone/Acet 5/325 mg TABLET PO PRN (21:40)
[2019-03-11] MEDS ORDERED: Naloxone 0.4 MG/ML INJ IVP PRN (21:40)
[2019-03-11] MEDS ORDERED: Nitroglycerin 25 MG/250 ML INFUS..BTL IVC SCH (21:45)
--- NOTE | 2019-03-11 21:48 | Internal Med History&Physical ---
Date of Encounter: 03/11/19 Time of Encounter: 20:20 Internal Medicine - H&P: HPI Chief complaint: Chest pain Admitted From: Emergency Dept Plans for Post Hospital Care: Home History of present illness: Ms. Pastor is a 63 year old female Patient presented to the ER with history of chest pain. She sates that she was at her mother's house eating dinner when she had sudden onset of chest pain. She did not have her nitro with her at the time, so her left to go and get it. By the time he had arrived the pain had increased, worst pain that she has ever had and an ambulance had been called. she took a total of 2 doses of nitro and the pain improved. She had an episode of vomiting as well during this event. EMS gave her a 325mg dose of aspirin prior to arrival as well. She recently had a heart cath performed a few months ago, and has been on plavix and aspirin at home. She has had chest pain on and off since then that is managed with nitro. In the ER patient's initial vitals were within normal limits. CBC and BMP were also both normal. Initial troponin was undetectable. Chest x-ray revealed no acute abnormality. EKG showed no acute ST changes. Patient was then admitted to the hospital floor for further management. Upon my assessment, patient states that she is still having a 5/10 chest pain, improved from 10/10 earlier. She has a history of migraine, kidney stones, gall stones, fibromyalgia, and has a gential herpes lesion. She denies abdominal pain however, has not vomited since prior to arrival and has IBS. She is on chronic oxygen at home at 2 liters. She uses a CPAP machine as well. She was adopted, but knows that her mother had a history of heart disease. She a Jehovah's Wittness and is a full code. Past Med Surg Social Fam HX - Past Medical History Medical history: asthma, COPD, fibromyalgia, hypertension, kidney stones Additional medical history: gall stones Psychiatric history: anxiety, depression - Past Surgical History Surgical History: appendectomy, cholecystectomy, herniorrhaphy, hysterectomy, sinus surgery, FER/BSO Additional surgical history: lt/rt hernia repair, toatl abdominal hysterectomy, benign cyst removal upper arm, prolapse, caused need for drain (ceroma) - Social History Smoking Status: Former smoker Smokeless Tobacco Status: No Alcohol use: occasionally Drug use: none, other - Family History Mother Hx Family Cardiac Disorders: Yes Hx Family Respiratory Disorders: Yes (copd) Internal Medicine - H&P: Meds Amlodipine Besylate 5 mg PO DAILY 12/31/18 [History] Docusate Sodium [Dulcolax Stool Softener] 100 mg PO DAILY 12/31/18 [History] Escitalopram [Lexapro] 20 mg PO DAILY 12/31/18 [History] Fluticasone Propionate Nasal [Flonase] 50 mcg NS DAILY 12/31/18 [History] Fluticasone/Salmeterol [Advair 500-50 Diskus] 1 each IH DAILY 12/31/18 [History] Loratadine [Allergy Relief] 10 mg PO DAILY 12/31/18 [History] Losartan Potassium [Cozaar] 50 mg PO DAILY 12/31/18 [History] Omeprazole 20 mg PO BID 12/31/18 [History] Vitamin B Complex 1 each PO DAILY 12/31/18 [History] Acetaminophen [Non-Aspirin Extra Strength] 1,000 mg PO Q6H 01/05/19 [History] Acetaminophen/Diphenhydramine [Acetaminophen Pm Caplet] 1 each PO HS PRN 01/05/19 [History] Baclofen [Lioresal] 10 mg PO TID 01/05/19 [History] Biotin 5,000 mcg PO DAILY 01/05/19 [History] Black Cohosh 540 mg PO DAILY 01/05/19 [History] Carvedilol [Coreg] 6.25 mg PO BIDWM 01/05/19 [History] Cholecalciferol (Vitamin D3) [Vitamin D3] 50,000 unit PO QWEEK 01/05/19 [History] Multivit-Min/Iron/Folic Acid/K [Adults Multivitamin Tablet] 1 each PO DAILY 01/05/19 [History] Psyllium Husk [Daily Fiber] 1 cap PO DAILY 01/05/19 [History] Roflumilast [Daliresp] 500 mcg PO DAILY 01/05/19 [History] Aspirin 81 mg PO DAILY #60 tab.chew 01/06/19 [Rx] Atorvastatin [Lipitor] 80 mg PO HS #30 tablet 01/06/19 [Rx] Clopidogrel [Plavix] 75 mg PO DAILY #30 tablet 01/06/19 [Rx] Albuterol Neb [Proventil Neb] 2.5 mg IH Q6HR PRN #50 vial.neb 02/16/19 [Rx] Albuterol Sulfate [Ventolin Hfa] 18 gm IH 02/16/19 [History] Azelastine 0.1% Nasal [place] [Astelin] 120 spray NS BID #1 bottle 02/16/19 [Rx] Cholecalciferol (Vitamin D3) [Vitamin D] 1,000 unit PO 02/16/19 [History] Diclofenac Sodium [Voltaren] 100 gm TP 02/16/19 [History] Meloxicam 1 tab PO DAILY 02/16/19 [History] Tiotropium [place] [Spiriva Respimat] 4 gm IH 02/16/19 [History] Butalb/Acetaminophen/Caffeine [Fioricet 50-300-40 mg Capsule] 1 each PO Q6HR PRN 03/11/19 [History] Allergy/AdvReac Type Severity Reaction Status Date / Time dihydroergotamine Allergy Anaphylaxis Verified 12/31/18 14:35 haloperidol [From Haldol] Allergy Hives Verified 12/31/18 14:35 prochlorperazine Allergy Hives Verified 12/31/18 14:35 [From Compazine] sumatriptan [From Imitrex] Allergy Difficulty Verified 12/31/18 14:35 Breathing DHE Allergy Difficulty Uncoded 12/31/18 14:35 Breathing All Systems PM: A 10-system review of systems was performed and is negative for pertinent findings except as documented above in the HPI. - Constitutional Vitals: Temp Pulse Resp BP Pulse Ox 97.6 F 85 17 141/84 92 03/11/19 20:22 03/11/19 20:22 03/11/19 20:22 03/11/19 20:22 03/11/19 20:22 General appearance: Present: cooperative, A&O X 3, pleasant, no acute distress, answers questions appropriately Exam: - - Head Head exam: Present: normal inspection - Eye Eye exam: Present: EOMI, normal appearance - Respiratory Respiratory exam: Present: CTAB. Absent: rales, respiratory distress, rhonchi, wheezes - Cardiovascular Cardiovascular exam: Present: RRR. Absent: diastolic murmur, systolic murmur - GI/Abdominal GI/Abdominal exam: Present: normal bowel sounds, soft. Absent: tenderness - Extremities Exam Extremities exam: Present: warm, radial pulses palpable and symmetrical. Absent: calf tenderness, pedal edema, tenderness - Neurological Exam Neurological exam: Present: motor sensory deficit, no focal deficits, strengths equal and symetr throughout. Absent: facial droop, speech deficit - Skin Skin exam: Present: dry, normal color, warm Additional comments: Patient states that she has a genital lesion in her vaginal area Internal Med - H&P Results - Labs CBC & Chem 7: 03/11/19 16:51 03/11/19 16:51 Labs: Short CBC 03/11/19 Range/Units 16:51 WBC 12.7 H (4.3-11.1) K/mcL Hgb 12.1 (11.5-15.4) g/dL Hct 37.8 (35.3-44.9) % Plt Count 358 (140-400) K/mcL Neutrophils # 10.2 H (1.6-8.9) K/mcL BMP 03/11/19 16:51 Sodium 141 Potassium 3.7 Chloride 106 Carbon Dioxide 26 BUN 14 Creatinine 0.70 Glucose 124 H Calcium 9.7 Cardiac Enzymes 03/11/19 Range/Units 16:51 Troponin I < 0.03 (< 0.04) ng/mL - Impressions ITS Impressions Chest X-Ray 03/11/19 16:41 IMPRESSION: 1. No radiographic evidence of acute cardiopulmonary process. 2. Findings suggestive of COPD. D/ / Ray Garcia MD / Ray Garcia MD Interpreting Provider: Ray Garcia MD - Assessment and Plan (1) Chest pain Current Visit: Yes Status: Acute Assessment and plan: Patient presented with chest pain, still states that the pain is 5/10, but nitro does help. Recent history of heart cath back in January and did receive a stent to proximal LAD. Troponin thus far undetectable, no EKG changes. Chest x-ray showed no acute cardiopulmonary process but did suggest COPD. 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 Start acyclovir Qualifiers: Herpes simplex infection site: unspecified Qualified Code(s): A60.00 - Herpesviral infection of urogenital system, unspecified (3) DARCIE (obstructive sleep apnea) Current Visit: No Status: Chronic Assessment and plan: CPAP (4) DVT prophylaxis Current Visit: Yes Status: Acute Assessment and plan: Subcutaneous heparin. Will start heparin drip if patient's troponin elevates - Time Spent With Patient Total time spent is greater than 50% in coordination of care (as documented) at patient's floor/unit and/or counseling patient: Greater than 35 minutes
[2019-03-12 05:57] LABS: Hematocrit 36.1 % (35.3-44.9); Hemoglobin 11.6 g/dL (11.5-15.4); Mean Corpuscular HGB Conc 32.1 g/dL (31.6-35.5); Mean Corpuscular Hemoglobin 30.3 pg (28.0-33.3); Mean Corpuscular Volume 94.3 fL (83.0-100.0); Mean Platelet Volume 10.3 fL (9.4-12.4); Platelet Count 330 K/mcL (140-400); Red Blood Count 3.83 M/mcL (3.82-4.97); Red Cell Distribution Width 12.9 % (11.5-14.5)
[2019-03-12] MEDS ORDERED: *HR* Heparin 5,000 UNIT/ML VIAL SQ SCH (06:00)
[2019-03-12 06:18] LABS: BUN/Creatinine Ratio 20 (6-26); Blood Urea Nitrogen 11 mg/dL (8-23); Calcium 9.1 mg/dL (8.6-10.3); Carbon Dioxide 27 mEq/L (23-29); Chloride 105 mEq/L (98-107); Glucose 101 mg/dL (70-105); Osmolality,Calculated 294 (280-300); Potassium 3.3 mEq/L (3.5-5.1); Sodium 142 mEq/L (136-145); eGFR For Non-African Americans > 60 (> 60)
[2019-03-12] MEDS: Acyclovir 200 MG CAPSULE PO SCH ×2 (08:25)
[2019-03-12] MEDS ORDERED: Aspirin 81 MG TAB.CHEW PO SCH (09:00)
--- NOTE | 2019-03-12 09:33 | Cardiology Consult Note ---
<Timothy Bradley R - Last Filed: 03/12/19 09:22> Date of Encounter: 03/12/19 Time of Encounter: 09:22 Assessment and Plan (1) Chest pain Current Visit: Yes Status: Resolved CAD s/p PCI to [facility] 01/2019. Reports intermittent crushing chest pain since PCI with associated dyspnea. Increasing in frequency, relieved with nitro. No ischemic ECG changes. Reports compliance with ASA and Plavix. Pain does not worsen with exertion. Troponin negative x 3. Chest tenderness noted on palpation and she reports worsens with deep breaths/coughing. Pain is atypical. Will start pt on PPI and give GI cocktail. TTE ordered. Will discuss and review with Dr. Price to determine if further ischemic evaluation is warranted. Qualifiers: Chest pain type: unspecified Qualified Code(s): R07.9 - Chest pain, unspecified (2) CAD (coronary artery disease) Current Visit: No Status: Acute S/P PCI to [facility] 01/05/19. Continue ASA, Plavix, Statin, BB. Qualifiers: Coronary Disease-Associated Artery/Lesion type: [place] artery [place] vs. transplanted heart: [place] heart Associated angina: without angina Qualified Code(s): I25.10 - Atherosclerotic heart disease of [place] coronary artery without angina pectoris Discussion w patient/family: The assessment and plan as outlined above was discussed with the patient and/or family members who expressed understanding and agreement. All questions were an swered. Thank you for involving us in the care of your patient. Please call with any questions. I will discuss all the above with Dr. Price and make changes as necessary. History of Present Illness Consult date: 03/12/19 Consult reason: Chest pain Chief complaint: Chest pain History of present illness: Ms. Pastor is a 63 year old female with PMH of fibromyalgia, CAD s/p PCI to [facility] 01/2019 that presents to ED for chest pain. She sates that she was at her mother's house eating dinner when after she had sudden onset of crushing chest pain. She took 2 nitro and the pain improved. She had an episode of vomiting as well during this event. Reports associated dyspnea. She reports intermittent chest pain since PCI that has been increasing in frequency, relieved with nitro. Pain does not worsen with exertion. Sometimes wakes her from sleep. Troponin negative x 3. Prior CV testing: [facility] 01/05/19: Single vessel CAD. EF 65% Patient had successful PTCA/Drug-Eluting Stent placement in the proximal LAD. Nuclear stress test 12/26/18: Perfusion imaging was positive for ischemia. Small sized reversible perfusion defect which is mild in intensity in the apical lateral segment, SDS 1. Gated EF >70%. Past Med Surg Social Fam HX - Past Medical History Medical history: asthma, COPD, coronary artery disease, fibromyalgia, hypertension, kidney stones Additional medical history: gall stones Psychiatric history: anxiety, depression - Past Surgical History Surgical History: angioplasty/stent, appendectomy, cholecystectomy, hernio rrhaphy, hysterectomy, sinus surgery, FER/BSO Additional surgical history: lt/rt hernia repair, toatl abdominal hysterectomy, benign cyst removal upper arm, prolapse, caused need for drain (ceroma) - Social History Smoking Status: Former smoker Smokeless Tobacco Status: No Alcohol use: occasionally Drug use: none, other - Family History Mother Hx Family Cardiac Disorders: Yes Hx Family Respiratory Disorders: Yes (copd) Medications and Allergies Amlodipine Besylate 5 mg PO DAILY 12/31/18 [History] Docusate Sodium [Dulcolax Stool Softener] 100 mg PO DAILY 12/31/18 [History] Escitalopram [Lexapro] 20 mg PO DAILY 12/31/18 [History] Fluticasone Propionate Nasal [Flonase] 50 mcg NS DAILY 12/31/18 [History] Fluticasone/Salmeterol [Advair 500-50 Diskus] 1 each IH DAILY 12/31/18 [History] Loratadine [Allergy Relief] 10 mg PO DAILY 12/31/18 [History] Losartan Potassium [Cozaar] 50 mg PO DAILY 12/31/18 [History] Omeprazole 20 mg PO BID 12/31/18 [History] Vitamin B Complex 1 each PO DAILY 12/31/18 [History] Acetaminophen [Non-Aspirin Extra Strength] 1,000 mg PO Q6H PRN 01/05/19 [History] Acetaminophen/Diphenhydramine [Acetaminophen Pm Caplet] 1 each PO HS PRN 01/05/19 [History] Baclofen [Lioresal] 10 mg PO TID 01/05/19 [History] Biotin 5,000 mcg PO DAILY 01/05/19 [History] Black Cohosh 540 mg PO BID 01/05/19 [History] Carvedilol [Coreg] 6.25 mg PO BIDWM 01/05/19 [History] Cholecalciferol (Vitamin D3) [Vitamin D3] 50,000 unit PO QWEEK 01/05/19 [History] Multivit-Min/Iron/Folic Acid/K [Adults Multivitamin Tablet] 1 each PO DAILY 01/05/19 [History] Psyllium Husk [Daily Fiber] 3 cap PO DAILY 01/05/19 [History] Roflumilast [Daliresp] 500 mcg PO DAILY 01/05/19 [History] Aspirin 81 mg PO DAILY #60 tab.chew 01/06/19 [Rx] Atorvastatin [Lipitor] 80 mg PO HS #30 tablet 01/06/19 [Rx] Clopidogrel [Plavix] 75 mg PO DAILY #30 tablet 01/06/19 [Rx] Albuterol Neb [Proventil Neb] 2.5 mg IH Q6HR PRN #50 vial.neb 02/16/19 [Rx] Albuterol Sulfate [Ventolin Hfa] 18 gm IH 02/16/19 [History] Azelastine 0.1% Nasal [place] [Astelin] 120 spray NS BID #1 bottle 02/16/19 [Rx] Cholecalciferol (Vitamin D3) [Vitamin D3] 1,000 unit PO 02/16/19 [History] Diclofenac Sodium [Voltaren] 100 gm TP PRN 02/16/19 [History] Meloxicam 1 tab PO DAILY 02/16/19 [History] Tiotropium [place] [Spiriva Respimat] 4 gm IH 02/16/19 [History] Butalb/Acetaminophen/Caffeine [Fioricet 50-300-40 mg Capsule] 1 each PO Q6HR PRN 03/11/19 [History] Acyclovir [Zovirax] 400 mg PO TID capsule 03/12/19 [Rx] levoFLOXacin [Levaquin] 500 mg PO DAILY #4 tablet 03/12/19 [Rx] Allergy/AdvReac Type Severity Reaction Status Date / Time dihydroergotamine Allergy Anaphylaxis Verified 12/31/18 14:35 haloperidol [From Haldol] Allergy Hives Verified 12/31/18 14:35 prochlorperazine Allergy Hives Verified 12/31/18 14:35 [From Compazine] sumatriptan [From Imitrex] Allergy Difficulty Verified 12/31/18 14:35 Breathing DHE Allergy Difficulty Uncoded 12/31/18 14:35 Breathing All Systems Review: The remainder of the systems were reviewed and are negative - Cardiovascular Cardiovascular: as per HPI, chest pain at rest, chest pain with exertion, dyspnea on exertion Physical Examination Vital Signs, Last 4 Hours Temp Pulse Resp BP Pulse Ox 03/12/19 07:57 98.1 F 70 18 138/83 97 Vital Signs Temp Pulse Resp BP Pulse Ox 03/12/19 07:57 98.1 F 70 18 138/83 97 03/12/19 03:29 98.4 F 93 17 112/71 97 03/11/19 23:26 98.8 F 75 16 138/82 93 03/11/19 20:22 97.6 F 85 17 141/84 92 03/11/19 19:50 82 18 103/92 100 03/11/19 17:39 66 18 121/72 100 03/11/19 16:30 98.7 F 74 20 123/69 99 Intake and Output 03/11/19 03/12/19 03/12/19 23:59 07:59 15:59 Other: Meal NPO Weight 112.491 kg General: Conversant, No Apparent Distress HEENT: Atraumatic, Normocephaly, Mucus Membranes Moist Neck: No JVD, Normal carotid pulses Cardiac: Reg Rate and Rhythm, Normal S1 and S2, No Murmur Lungs: Other (wheezes) Neuro: Alert and responsive, No focal deficits noted Abdomen: Soft, Non-Tender Skin: No rashes noted on visualized skin Musculoskeletal: No Chest Wall Tenderness Extremities: No Clubbing, No Cyanosis, No Edema, Normal Pulses Results 03/12/19 05:41 03/12/19 05:41 Lab Results 03/11/19 03/11/19 03/11/19 16:51 16:51 22:42 WBC 12.7 H Hgb 12.1 Hct 37.8 Plt Count 358 Sodium 141 Potassium 3.7 Chloride 106 Carbon Dioxide 26 BUN 14 Creatinine 0.70 Glucose 124 H Calcium 9.7 Troponin I < 0.03 < 0.03 03/12/19 03/12/19 03/12/19 05:41 05:41 05:41 WBC 10.3 Hgb 11.6 Hct 36.1 Plt Count 330 Sodium 142 Potassium 3.3 L Chloride 105 Carbon Dioxide 27 BUN 11 Creatinine 0.56 L Glucose 101 Calcium 9.1 Troponin I < 0.03 Short CBC 03/12/19 03/11/19 Range/Units 05:41 16:51 WBC 10.3 12.7 H (4.3-11.1) K/mcL Hgb 11.6 12.1 (11.5-15.4) g/dL Hct 36.1 37.8 (35.3-44.9) % Plt Count 330 358 (140-400) K/mcL Neutrophils # 10.2 H (1.6-8.9) K/mcL BMP 03/12/19 03/11/19 Range/Units 05:41 16:51 Sodium 142 141 (136-145) mEq/L Potassium 3.3 L 3.7 (3.5-5.1) mEq/L Chloride 105 106 (98-107) mEq/L Carbon Dioxide 27 26 (23-29) mEq/L BUN 11 14 (8-23) mg/dL Creatinine 0.56 L 0.70 (0.60-1.20) mg/dL Glucose 101 124 H (70-105) mg/dL Calcium 9.1 9.7 (8.6-10.3) mg/dL Cardiac Enzymes 03/12/19 03/11/19 03/11/19 Range/Units 05:41 22:42 16:51 Troponin I < 0.03 < 0.03 < 0.03 (< 0.04) ng/mL Impressions Chest X-Ray 03/11/19 16:41 IMPRESSION: 1. No radiographic evidence of acute cardiopulmonary process. 2. Findings suggestive of COPD. D/ / Rya Garcia MD / Ray Garcia MD Interpreting Provider: Ray Garcia MD Active Medications Acetaminophen (Tylenol) 650 mg PO Q6HR PRN PRN Reason: Mild Pain/Fever Stop: 09/10/19 21:41 Hydrocodone Bitart/Acetaminophen ([place] 5-325 Mg) 1 tab PO Q6HR PRN PRN Reason: Moderate Pain Stop: 09/10/19 21:41 Acyclovir (Zovirax) 400 mg PO TID [facility]; Protocol Stop: 09/10/19 21:46 Last Admin: 03/12/19 08:25 Dose: Not Given Documented by: Aspirin (Aspirin) 81 mg PO DAILY [facility] Stop: 09/11/19 09:01 Clopidogrel Bisulfate (Plavix) 75 mg PO DAILY [facility] Stop: 09/11/19 09:01 Diphenhydramine HCl (Benadryl) 12.5 mg IVP Q6HR PRN PRN Reason: Itching Stop: 09/10/19 21:46 Last Admin: 03/11/19 23:48 Dose: 12.5 mg Documented by: Heparin Sodium (Porcine) (Heparin) 5,000 unit SQ Q12HCO [facility] Stop: 09/11/19 06:01 Last Admin: 03/12/19 05:58 Dose: Not Given Documented by: Nitroglycerin (Nitroglycerin Premix 25 Mg/250 Ml) 25 mg in 250 mls @ 3 mls/hr IVC .Q24H [facility]; Protocol Stop: 09/10/19 21:46 Last Admin: 03/12/19 05:57 Dose: Not Given Documented by: Naloxone HCl (Narcan) 0.4 mg IVP Q2MPRN PRN PRN Reason: SEE COMMENTS Stop: 09/10/19 21:41 Oxycodone HCl (Roxicodone) 10 mg PO Q6HR PRN PRN Reason: Severe Pain Stop: 09/10/19 21:41 - Imaging and Cardiology Stress Test: report reviewed Cardiac cath: report reviewed - EKG Interpretation EKG results cardiology: personally reviewed (SR) Consult Discharge Plan - Plan Referrals: Alejandrina Marshall MD [Partnered Physician] - 04/25/19 3:10 pm Marino Marshall MD [Partnered Physician] - Tara Maciel CNP [Primary Care Provider] - 03/14/19 10:35 am Prescriptions: levoFLOXacin [Levaquin] 500 mg PO DAILY #4 tablet <Sasha Price - Last Filed: 03/12/19 13:44> Date of Encounter: 03/12/19 - Attending Attestation I examined this patient and my medical decision-making was reviewed with the PUBLIC RECORDS OFFICER. I agree with the documented findings, disposition and treatment plan as described. Ms. Pastor presented with atypical chest pain. Cardiac workup negative. No new ECG changes, troponins negative. Symptoms reproducible on anterior chest wall palpation and with deep inspiration. Diagnosed with bronchitis. Preserved LVEF. No further cardiac testing is warranted. Recommend outpatient Cardiology follow up. Assessment and Plan Discussion w patient/family: The assessment and plan as outlined above was discussed with the patient and/or family members who expressed understanding and agreement. All questions were answered. Thank you for involving us in the care of your patient. Please call with any questions. History of Present Illness History of present illness: Ms. Pastor is a 63 year old female All Systems Review: The remainder of the systems were reviewed and are negative Physical Examination Vital Signs, Last 4 Hours Temp Pulse Resp BP Pulse Ox 03/12/19 11:52 98.3 F 65 18 139/85 94 Results 03/12/19 05:41 03/12/19 05:41 Lab Results 03/11/19 03/11/19 03/11/19 16:51 16:51 22:42 WBC 12.7 H Hgb 12.1 Hct 37.8 Plt Count 358 Sodium 141 Potassium 3.7 Chloride 106 Carbon Dioxide 26 BUN 14 Creatinine 0.70 Glucose 124 H Calcium 9.7 Troponin I < 0.03 < 0.03 03/12/19 03/12/19 03/12/19 05:41 05:41 05:41 WBC 10.3 Hgb 11.6 Hct 36.1 Plt Count 330 Sodium 142 Potassium 3.3 L Chloride 105 Carbon Dioxide 27 BUN 11 Creatinine 0.56 L Glucose 101 Calcium 9.1 Troponin I < 0.03
[2019-03-12] MEDS ORDERED: GI Cocktail 40 ML EACH PO ONE (09:45)
[2019-03-12] MEDS ORDERED: (Acetaminophen/Diphenhydramine [Acetaminophen Pm Capl PO PRN (11:10)
[2019-03-12] MEDS ORDERED: Albuterol 2.5 MG/3 ML NEBULIZER IH PRN (11:10)
[2019-03-12] MEDS ORDERED: Acetaminophen/Butalbital/CaffeineTABLET PO PRN (11:10)
[2019-03-12] MEDS ORDERED: Loratadine 10 MG TABLET PO SCH (11:15)
[2019-03-12] MEDS ORDERED: NON-FORMULARY MEDICATION 1 EACH EACH (Omeprazole 20 MG) PO SCH (11:15)
--- NOTE | 2019-03-12 11:26 | Discharge Summary ---
- NOTES TO OUTPATIENT PROVIDER Notes to Outpatient Provider: f/u with PCP in one week. f/u with Cardiology in 2 weeks. If your chest pain persists please come back to ER or call your mussel opener office. Date of Encounter: 03/12/19 Time of Encounter: 11:19 - Discharge Diagnosis (1) Pleuritic chest pain Priority: Primary Status: Acute (2) Acute bronchitis and bronchiolitis Priority: Primary Status: Acute (3) Chronic respiratory failure with hypoxia Priority: Secondary Status: Acute (4) Morbid obesity with BMI of 40.0-44.9, adult Priority: Secondary Status: Chronic (5) CAD (coronary artery disease) Priority: Secondary Status: Acute Qualifiers: Coronary Disease-Associated Artery/Lesion type: [place] artery [place] vs. transplanted heart: [place] heart Associated angina: without angina Qualified Code(s): I25.10 - Atherosclerotic heart disease of [place] coronary artery without angina pectoris Hospital course: Ms. Pastor is a 63 year old female with known past medical history of COPD, fibromyalgia, hypertension, hyperlipidemia, chronic hypoxic respiratory failure on 2 lit oxygen, morbid obesity and CAD with recent LHC with PCI to LAD on 01/2019 now she presented to ER with sudden onset chest pain located sub sternal region asscoiated with some SOB and RIDLEY. She also have cough with expectoration / URI symptoms for 3 weeks. She finished Azigthromycin abx as out pt. Pt stated she felt better for few days after using Z pack, however now she has progressively worsening SOB / RIDLEY and cough with expectoration. Patient denied any more active chest pain now. She was admitted in the hospital and placed on ekg monitor. Her EKG did not show any acute ischemic changes. Her serial troponin's came back as negative. Patient was evaluated by mussel opener who did not recommend further workup. Evaporator Operator Molasses recommend to treat her bronchitis. So started on oral antibiotic levofloxacin. Will discharge her home in a stable condition today. If patient chest pain persist recommend to follow up with the mussel opener as outpatient since she may need Imdur / Nitro supplements for possible coronary spasms. - Time Spent with Patient Total time spent providing and/or coordinating discharge services: - Discharge Medications Prescriptions: New levoFLOXacin [Levaquin] 500 mg PO DAILY #4 tablet Acyclovir [Zovirax] 400 mg PO TID capsule Continued Escitalopram [Lexapro] 20 mg PO DAILY Losartan Potassium [Cozaar] 50 mg PO DAILY Vitamin B Complex 1 each PO DAILY Omeprazole 20 mg PO BID Loratadine [Allergy Relief] 10 mg PO DAILY Fluticasone/Salmeterol [Advair 500-50 Diskus] 1 each IH DAILY Fluticasone Propionate Nasal [Flonase] 50 mcg NS DAILY Docusate Sodium [Dulcolax Stool Softener] 100 mg PO DAILY Amlodipine Besylate 5 mg PO DAILY Cholecalciferol (Vitamin D3) [Vitamin D3] 50,000 unit PO QWEEK Baclofen [Lioresal] 10 mg PO TID Carvedilol [Coreg] 6.25 mg PO BIDWM Roflumilast [Daliresp] 500 mcg PO DAILY [place] 540 mg PO BID Acetaminophen/Diphenhydramine [Acetaminophen Pm Caplet] 1 each PO HS PRN PRN Reason: Insomnia Multivit-Min/Iron/Folic Acid/K [Adults Multivitamin Tablet] 1 each PO DAILY Acetaminophen [Non-Aspirin Extra Strength] 1,000 mg PO Q6H PRN PRN Reason: Pain Psyllium Husk [Daily Fiber] 3 cap PO DAILY Biotin 5,000 mcg PO DAILY Aspirin 81 mg PO DAILY #60 tab.chew Atorvastatin [Lipitor] 80 mg PO HS #30 tablet Clopidogrel [Plavix] 75 mg PO DAILY #30 tablet Albuterol Sulfate [Ventolin Hfa] 18 gm IH Cholecalciferol (Vitamin D3) [Vitamin D3] 1,000 unit PO Diclofenac Sodium [Voltaren] 100 gm TP PRN PRN Reason: Muscle Pain Meloxicam 1 tab PO DAILY Tiotropium [place] [Spiriva Respimat] 4 gm IH Azelastine 0.1% Nasal [place] [Astelin] 120 spray NS BID #1 bottle Albuterol Neb [Proventil Neb] 2.5 mg IH Q6HR PRN #50 vial.neb PRN Reason: Shortness Of Breath/Wheezing Butalb/Acetaminophen/Caffeine [Fioricet 50-300-40 mg Capsule] 1 each PO Q6HR PRN PRN Reason: Pain Home Medications: Amlodipine Besylate 5 mg PO DAILY 12/31/18 [History] Docusate Sodium [Dulcolax Stool Softener] 100 mg PO DAILY 12/31/18 [History] Escitalopram [Lexapro] 20 mg PO DAILY 12/31/18 [History] Fluticasone Propionate Nasal [Flonase] 50 mcg NS DAILY 12/31/18 [History] Fluticasone/Salmeterol [Advair 500-50 Diskus] 1 each IH DAILY 12/31/18 [History] Loratadine [Allergy Relief] 10 mg PO DAILY 12/31/18 [History] Losartan Potassium [Cozaar] 50 mg PO DAILY 12/31/18 [History] Omeprazole 20 mg PO BID 12/31/18 [History] Vitamin B Complex 1 each PO DAILY 12/31/18 [History] Acetaminophen [Non-Aspirin Extra Strength] 1,000 mg PO Q6H PRN 01/05/19 [History] Acetaminophen/Diphenhydramine [Acetaminophen Pm Caplet] 1 each PO HS PRN 01/05/19 [History] Baclofen [Lioresal] 10 mg PO TID 01/05/19 [History] Biotin 5,000 mcg PO DAILY 01/05/19 [History] [place] 540 mg PO BID 01/05/19 [History] Carvedilol [Coreg] 6.25 mg PO BIDWM 01/05/19 [History] Cholecalciferol (Vitamin D3) [Vitamin D3] 50,000 unit PO QWEEK 01/05/19 [History] Multivit-Min/Iron/Folic Acid/K [Adults Multivitamin Tablet] 1 each PO DAILY 01/05/19 [History] Psyllium [place] [Daily Fiber] 3 cap PO DAILY 01/05/19 [History] Roflumilast [Daliresp] 500 mcg PO DAILY 01/05/19 [History] Aspirin 81 mg PO DAILY #60 tab.chew 01/06/19 [Rx] Atorvastatin [Lipitor] 80 mg PO HS #30 tablet 01/06/19 [Rx] Clopidogrel [Plavix] 75 mg PO DAILY #30 tablet 01/06/19 [Rx] Albuterol Neb [Proventil Neb] 2.5 mg IH Q6HR PRN #50 vial.neb 02/16/19 [Rx] Albuterol Sulfate [Ventolin Hfa] 18 gm IH 02/16/19 [History] Azelastine 0.1% Nasal [place] [Astelin] 120 spray NS BID #1 bottle 02/16/19 [Rx] Cholecalciferol (Vitamin D3) [Vitamin D3] 1,000 unit PO 02/16/19 [History] Diclofenac Sodium [Voltaren] 100 gm TP PRN 02/16/19 [History] Meloxicam 1 tab PO DAILY 02/16/19 [History] Tiotropium [place] [Spiriva Respimat] 4 gm IH 02/16/19 [History] Butalb/Acetaminophen/Caffeine [Fioricet 50-300-40 mg Capsule] 1 each PO Q6HR PRN 03/11/19 [History] Acyclovir [Zovirax] 400 mg PO TID capsule 03/12/19 [Rx] levoFLOXacin [Levaquin] 500 mg PO DAILY #4 tablet 03/12/19 [Rx] Allergies/Adverse Reactions: Allergy/AdvReac Type Severity Reaction Status Date / Time dihydroergotamine Allergy Anaphylaxis Verified 12/31/18 14:35 haloperidol [From Haldol] Allergy Hives Verified 12/31/18 14:35 prochlorperazine Allergy Hives Verified 12/31/18 14:35 [From Compazine] sumatriptan [From Imitrex] Allergy Difficulty Verified 12/31/18 14:35 Breathing DHE Allergy Difficulty Uncoded 12/31/18 14:35 Breathing Date of admission: 03/11/19 18:23 Primary care physician: Tara Maciel CNP Consults: 03/11/19 22:30 Consult to Cardiology [CONS] Routine Comment: Consulting Provider: Cardiology [place] Reason for Consult: Chest pain, recent heart cath with stent placement to proximal LAD. Call Completed: No - Constitutional Vitals: Temp Pulse Resp BP Pulse Ox 98.1 F 70 18 138/83 97 03/12/19 07:57 03/12/19 07:57 03/12/19 07:57 03/12/19 07:57 03/12/19 07:57 General appearance: Present: cooperative, A&O X 3, pleasant, no acute distress, answers questions appropriately Exam: Gen: Alert, awake, Oriented to time,place and person Chest: Diminished breath sounds B/L, mild wheezing, No crackles, No rales Heart: S1S2+ RRR No murmurs Abd: Soft, NT, BS +, No organomegaly Ext: No edema, pulses are palpable, No calf tenderness Neuro : Benign findings Skin: No rash. - Patient Status Disposition: Home, Self-Care Condition: Good Overall status at discharge: patient is back to baseline - Discharge Instructions Follow Up With: Tara Maciel CNP [Primary Care Provider] - 03/14/19 10:35 am Marino Marshall MD [Partnered Physician] - Forms: ED Satisfaction Letter - Diet and Activity Activity: increase activity as tolerated Diet: low salt diet
[2019-03-12] MEDS ORDERED: levoFLOXacin 500 MG TABLET PO SCH (11:30)
[2019-03-12 11:53] VITALS: BP 139/85
[2019-03-12] MEDS ORDERED: Baclofen 10 MG TABLET PO SCH (15:00)
[2019-03-12] MEDS ORDERED: Azelastine 0.1% Nasal Spray 30 ML BOTTLE NS SCH (21:00)
[2019-03-12] MEDS ORDERED: BLACK COHOSH 540 MG PO SCH (21:00)
[2019-03-13] MEDS ORDERED: Fluticasone Propionate Nasal 50 MCG/SPRAY BOTTLE NS SCH (09:00)
[2019-03-13] MEDS ORDERED: (Biotin 5,000 MCG) PO SCH (09:00)
[2019-03-13] MEDS ORDERED: (Roflumilast [Daliresp] 500 MCG) PO SCH (09:00)
[2019-03-13] MEDS ORDERED: Vitamin B Complex/Vit C/Vit E 1 EACH TABLET PO SCH (09:00)
[2019-03-13] MEDS ORDERED: Budesonide/Formoterol 160/4.5 1 PUFF INH IH SCH (10:00)
--- NOTE | 2019-03-14 21:58 | Electrocardiograph Report ---
[address] [address] Test Date: 2019-03-11 Pat Name: Clotilde Pastor Department: [id number] Room: 3B48 Gender: F [employer]icon[employer] Dies Loader: : 1955 Requested By: Juan Carlos Pelaez Order Number: [id number] Reading MD: Alejandrina Marshall Measurements Intervals [place] Rate: 71 P: 58 IA: 145 QRS: 62 QRSD: 81 T: 68 QT: 400 QTc: 435 Interpretive Statements Sinus rhythm Atrial premature complexes Electronically Signed On 03-14-2019 21:57:12 EDT by Alejandrina Marshall
== END 2019-03-12 13:00 | disposition home or self-care (01) ==
LOC: 3BNU 16:29 → EMEROOARM 16:29 → SUATTDRO 18:23 → 3BNU 20:09
PROVIDERS: ADMIT Internal Medicine; ATTEND Family Medicine

== ENCOUNTER 2019-08-31 15:10 | Observation (INO) ==
[2019-08-31] MEDS ORDERED: Nitroglycerin 0.4 MG TAB.SUBL SL PRN (15:22)
[2019-08-31] MEDS ORDERED: Aspirin 325 MG TABLET PO ONE (15:43)
[2019-08-31 15:45] LABS: Basophils # 0.1 K/mcL (0.0-0.2); Basophils % 0.5 %; Eosinophils # 0.4 K/mcL (0.0-0.6); Eosinophils % 3.9 %; Hematocrit 39.7 % (35.3-44.9); Hemoglobin 13.3 g/dL (11.5-15.4); Immature Granulocytes % 0.4 % (0-4); Lymphocytes # 1.1 K/mcL (0.6-4.6); Lymphocytes % 11.9 %; Mean Corpuscular HGB Conc 33.5 g/dL (31.6-35.5); Mean Corpuscular Hemoglobin 31.3 pg (28.0-33.3); Mean Corpuscular Volume 93.4 fL (83.0-100.0); Mean Platelet Volume 10.1 fL (9.4-12.4); Monocytes # 0.5 K/mcL (0.0-1.3); Monocytes % 4.9 %; Neutrophils # 7.5 K/mcL (1.6-8.9); Platelet Count 303 K/mcL (140-400); Red Blood Count 4.25 M/mcL (3.82-4.97); Red Cell Distribution Width 13.3 % (11.5-14.5); Segmented Neutrophils % 78.4 %; White Blood Count 9.6 K/mcL (4.3-11.1)
[2019-08-31 16:03] LABS: BUN/Creatinine Ratio 16 (6-26); Blood Urea Nitrogen 11 mg/dL (8-23); Calcium 9.7 mg/dL (8.6-10.3); Carbon Dioxide 29 mEq/L (23-29); Chloride 105 mEq/L (98-107); Glucose 123 mg/dL (70-105); Osmolality,Calculated 297 (280-300); Potassium 3.4 mEq/L (3.5-5.1); Sodium 143 mEq/L (136-145); eGFR For African Americans > 60 (> 60); eGFR For Non-African Americans > 60 (> 60)
[2019-08-31 16:04] LABS: Troponin I < 0.03 ng/mL (< 0.04)
[2019-08-31] MEDS ORDERED: Naloxone 0.4 MG/ML INJ IVP PRN (18:45)
[2019-08-31] MEDS ORDERED: Ondansetron 4 MG/2 ML VIAL IVP PRN (18:45)
[2019-08-31] MEDS ORDERED: Ipratropium/Albuterol Neb 3 ML IH PRN (18:51)
[2019-08-31] MEDS ORDERED: *HR* Labetalol 20 MG/4 ML SYRINGE IVP PRN (18:51)
[2019-09-01] MEDS: *HR* Heparin 5,000 UNIT/ML VIAL SQ SCH ×2 (06:33→19:39)
[2019-09-01] MEDS ORDERED: Loratadine 10 MG TABLET ONE (11:39)
[2019-09-01] MEDS ORDERED: Baclofen 10 MG TABLET ONE (11:40)
[2019-09-01] MEDS ORDERED: Isosorbide MONOnitrate (24 HR) 30 MG TAB.ER.24H PO ONE (11:40)
[2019-09-01] MEDS: Aspirin 81 MG TAB.CHEW PO SCH (19:39)
[2019-09-01] MEDS ORDERED: Isosorbide MONOnitrate (24 HR) 30 MG TAB.ER.24H PO SCH (21:00)
[2019-09-01] MEDS: Baclofen 10 MG TABLET PO SCH (21:07)
[2019-09-02] MEDS: *HR* Heparin 5,000 UNIT/ML VIAL SQ SCH ×2 (05:26→17:43)
[2019-09-02] MEDS: Aspirin 81 MG TAB.CHEW PO SCH (08:39)
[2019-09-02] MEDS: Loratadine 10 MG TABLET PO SCH (08:39)
[2019-09-02] MEDS: Baclofen 10 MG TABLET PO SCH ×3 (08:39→20:41)
[2019-09-02] MEDS: Fluticasone Propionate Nasal 50 MCG/SPRAY BOTTLE NS SCH (08:41)
[2019-09-02] MEDS ORDERED: Tiotropium 18 MCG inhalation IH SCH (09:00)
[2019-09-02] MEDS: Isosorbide MONOnitrate (24 HR) 30 MG TAB.ER.24H PO SCH (09:14)
[2019-09-02 10:40] LABS: BUN/Creatinine Ratio 16 (6-26); Blood Urea Nitrogen 12 mg/dL (8-23); Calcium 9.8 mg/dL (8.6-10.3); Carbon Dioxide 27 mEq/L (23-29); Chloride 106 mEq/L (98-107); Glucose 139 mg/dL (70-105); Osmolality,Calculated 294 (280-300); Potassium 4.1 mEq/L (3.5-5.1); Sodium 141 mEq/L (136-145); eGFR For African Americans > 60 (> 60); eGFR For Non-African Americans > 60 (> 60)
[2019-09-02] MEDS: Acetaminophen/Butalbital/CaffeineTABLET PO PRN (14:21)
[2019-09-02] MEDS: Tiotropium 18 MCG inhalation IH SCH (19:57)
[2019-09-03] MEDS: *HR* Heparin 5,000 UNIT/ML VIAL SQ SCH ×2 (05:56→16:35)
[2019-09-03 07:27] LABS: Basophils # 0.1 K/mcL (0.0-0.2); Basophils % 0.8 %; Eosinophils # 0.5 K/mcL (0.0-0.6); Hematocrit 37.4 % (35.3-44.9); Hemoglobin 12.5 g/dL (11.5-15.4); Immature Granulocytes % 0.5 % (0-4); Lymphocytes # 1.6 K/mcL (0.6-4.6); Lymphocytes % 20.9 %; Mean Corpuscular HGB Conc 33.4 g/dL (31.6-35.5); Mean Corpuscular Hemoglobin 31.2 pg (28.0-33.3); Mean Corpuscular Volume 93.3 fL (83.0-100.0); Mean Platelet Volume 10.1 fL (9.4-12.4); Monocytes # 0.5 K/mcL (0.0-1.3); Monocytes % 6.7 %; Neutrophils # 4.8 K/mcL (1.6-8.9); Platelet Count 315 K/mcL (140-400); Red Blood Count 4.01 M/mcL (3.82-4.97); Red Cell Distribution Width 13.2 % (11.5-14.5); Segmented Neutrophils % 64.1 %; White Blood Count 7.5 K/mcL (4.3-11.1)
[2019-09-03 07:33] LABS: BUN/Creatinine Ratio 23 (6-26); Blood Urea Nitrogen 14 mg/dL (8-23); Calcium 9.2 mg/dL (8.6-10.3); Carbon Dioxide 30 mEq/L (23-29); Chloride 106 mEq/L (98-107); Glucose 109 mg/dL (70-105); Osmolality,Calculated 297 (280-300); Potassium 3.7 mEq/L (3.5-5.1); Sodium 143 mEq/L (136-145); eGFR For African Americans > 60 (> 60); eGFR For Non-African Americans > 60 (> 60)
[2019-09-03] MEDS: Isosorbide MONOnitrate (24 HR) 30 MG TAB.ER.24H PO SCH (08:26)
[2019-09-03] MEDS: Aspirin 81 MG TAB.CHEW PO SCH (08:26)
[2019-09-03] MEDS: Acetaminophen/Butalbital/CaffeineTABLET PO PRN (08:27)
[2019-09-03] MEDS: Loratadine 10 MG TABLET PO SCH (08:27)
[2019-09-03] MEDS: Baclofen 10 MG TABLET PO SCH ×3 (08:28→19:51)
[2019-09-03] MEDS: Fluticasone Propionate Nasal 50 MCG/SPRAY BOTTLE NS SCH (11:34)
[2019-09-03] MEDS: Tiotropium 18 MCG inhalation IH SCH (20:32)
[2019-09-04] MEDS: *HR* Heparin 5,000 UNIT/ML VIAL SQ SCH (05:36)
[2019-09-04 06:02] LABS: Basophils # 0.1 K/mcL (0.0-0.2); Basophils % 0.8 %; Eosinophils # 0.6 K/mcL (0.0-0.6); Eosinophils % 7.6 %; Hemoglobin 11.9 g/dL (11.5-15.4); Immature Granulocytes % 0.4 % (0-4); Lymphocytes # 1.6 K/mcL (0.6-4.6); Lymphocytes % 21.7 %; Mean Corpuscular HGB Conc 32.2 g/dL (31.6-35.5); Mean Corpuscular Hemoglobin 31.5 pg (28.0-33.3); Mean Corpuscular Volume 97.9 fL (83.0-100.0); Mean Platelet Volume 10.2 fL (9.4-12.4); Monocytes # 0.4 K/mcL (0.0-1.3); Monocytes % 6.1 %; Neutrophils # 4.6 K/mcL (1.6-8.9); Platelet Count 277 K/mcL (140-400); Red Blood Count 3.78 M/mcL (3.82-4.97); Red Cell Distribution Width 13.3 % (11.5-14.5); Segmented Neutrophils % 63.4 %; White Blood Count 7.3 K/mcL (4.3-11.1)
[2019-09-04 06:18] LABS: BUN/Creatinine Ratio 25 (6-26); Blood Urea Nitrogen 15 mg/dL (8-23); Calcium 9.2 mg/dL (8.6-10.3); Carbon Dioxide 26 mEq/L (23-29); Chloride 108 mEq/L (98-107); Glucose 99 mg/dL (70-105); Osmolality,Calculated 295 (280-300); Potassium 3.6 mEq/L (3.5-5.1); Sodium 142 mEq/L (136-145); eGFR For African Americans > 60 (> 60); eGFR For Non-African Americans > 60 (> 60)
[2019-09-04] MEDS: Baclofen 10 MG TABLET PO SCH (08:16)
[2019-09-04] MEDS: Isosorbide MONOnitrate (24 HR) 30 MG TAB.ER.24H PO SCH (08:16)
[2019-09-04] MEDS: Aspirin 81 MG TAB.CHEW PO SCH (08:16)
[2019-09-04] MEDS: Loratadine 10 MG TABLET PO SCH (08:16)
[2019-09-04] MEDS: Fluticasone Propionate Nasal 50 MCG/SPRAY BOTTLE NS SCH (08:17)
[2019-09-04] MEDS ORDERED: *HR* Heparin 10,000 UNIT/10 ML VIAL ONE (09:59)
[2019-09-04] MEDS ORDERED: ISOVUE-370 200 ML INFUS..BTL ONE (09:59)
[2019-09-04] MEDS ORDERED: Heparin 1,000 UNITS/500 mL 500 ML ONE (09:59)
[2019-09-04] MEDS ORDERED: Nitroglycerin 1,000 MCG/10 ML VIAL IV ONE (10:00)
[2019-09-04] MEDS ORDERED: 0.9 % Sodium Chloride 1,000 ML ONE (10:00)
[2019-09-04] MEDS ORDERED: *HR* Bivalirudin 250 MG VIAL IVC ONE (10:40)
[2019-09-04] MEDS ORDERED: *HR* FentaNYL (PF) 100 MCG/2 ML VIAL ONE (10:41)
[2019-09-04] MEDS ORDERED: *HR* Midazolam HCl 2 MG/2 ML VIAL ONE (10:41)
[2019-09-04] MEDS: Acetaminophen/Butalbital/CaffeineTABLET PO PRN (14:37)
[2019-09-04 16:18] VITALS: BP 155/80
[2019-09-04] MEDS ORDERED: Adenosine 90 MG/30 ML MLS IV ONE (17:06)
== END 2019-09-04 17:07 | disposition home or self-care (01) ==
LOC: EMEROOARM 15:10 → 3BNU 15:10 → SUATTDRO 18:41 → 3BNU 19:33
PROVIDERS: ADMIT Student in an Organized Health Care Education/Training Program; ATTEND Family Medicine

== ENCOUNTER 2020-03-26 07:59 | Inpatient (IN) ==
[2020-03-26] MEDS ORDERED: *HR* HYDROmorphone (PF) 1 MG/ML SYRINGE IVP ONE ×2 (08:01→09:22)
[2020-03-26] MEDS ORDERED: 0.9 % Sodium Chloride 1,000 ML IVC ONE ×2 (08:01→09:53)
[2020-03-26] MEDS ORDERED: Ondansetron 4 MG/2 ML VIAL IVP ONE (08:01)
[2020-03-26 08:31] LABS: Basophils % 0.2 %; Eosinophils % 0.2 %; Hematocrit 47.1 % (35.3-44.9); Immature Granulocytes % 0.8 % (0-4); Lymphocytes # 1.8 K/mcL (0.6-4.6); Lymphocytes % 8.2 %; Mean Corpuscular HGB Conc 31.8 g/dL (31.6-35.5); Mean Corpuscular Hemoglobin 30.6 pg (28.0-33.3); Mean Corpuscular Volume 96.1 fL (83.0-100.0); Mean Platelet Volume 9.6 fL (9.4-12.4); Monocytes # 1.5 K/mcL (0.0-1.3); Monocytes % 6.9 %; Neutrophils # 18.3 K/mcL (1.6-8.9); Platelet Count 426 K/mcL (140-400); Segmented Neutrophils % 83.7 %; White Blood Count 21.8 K/mcL (4.3-11.1)
[2020-03-26 08:41] LABS: INR 0.8; Prothrombin Time 9.5 Seconds (9.4-12.1)
[2020-03-26 09:09] LABS: Alanine Aminotransferase 24 Units/L (7-52); Albumin/Globulin Ratio 1.3 (1.1-2.2); Alkaline Phosphatase 102 Units/L (34-104); Aspartate Amino Transferase 14 Units/L (13-39); BUN/Creatinine Ratio 21 (6-26); Bilirubin,Direct 0.1 mg/dL (0.0-0.2); Bilirubin,Indirect 0.3 mg/dL (0.0-1.0); Bilirubin,Total 0.4 mg/dL (0.3-1.0); Blood Urea Nitrogen 13 mg/dL (8-23); Carbon Dioxide 30 mEq/L (23-29); Chloride 103 mEq/L (98-107); Globulin 3.1 g/dL (2.4-3.5); Glucose 168 mg/dL (70-105); Lipase > 1800 Units/L (11-82); Osmolality,Calculated 300 (280-300); Potassium 3.4 mEq/L (3.5-5.1); Sodium 143 mEq/L (136-145); Total Protein 7.1 g/dL (6.4-8.9); Troponin I < 0.03 ng/mL (< 0.04); eGFR For African Americans > 60 (> 60); eGFR For Non-African Americans > 60 (> 60)
[2020-03-26] MEDS ORDERED: Potassium Chloride 20 MEQ, Lidocaine 1% 2 ML in 0.9 % Sodium Chloride 250 ML IVPB ONE (10:03)
[2020-03-26 11:01] LABS: Bilirubin,Urine Negative (Negative); Blood,Urine Moderate (Negative); Clarity,Urine Clear (Clear); Color,Urine Yellow (Yellow); Glucose,Urine (UA) Normal (Normal); Ketones,Urine Negative (Negative); Leukocyte Esterase,Urine Negative (Negative); Nitrite,Urine Negative (Negative); Protein,Urine Trace mg/dL (Neg-Trace); Specific Gravity,Urine 1.016 (1.010-1.025); Urobilinogen,Urine Normal (Normal)
[2020-03-26 11:04] LABS: Bacteria,Urine None Seen per hpf (None-Few); Hyaline Casts,Urine None Seen per lpf (None-Few); Squamous Epithelial Cell,Urine Many per lpf (None-Few); WBC,Urine 0-3 per hpf (0-3)
[2020-03-26] MEDS ORDERED: Morphine Sulfate 2 MG/ML SYRINGE IVP ONE (11:07)
[2020-03-26] MEDS ORDERED: Acetaminophen 325 MG TABLET PO PRN (11:47)
[2020-03-26] MEDS ORDERED: Naloxone 0.4 MG/ML INJ IVP PRN (11:47)
[2020-03-26] MEDS ORDERED: Ringers Solution, Lactated 1,000 ML IVC SCH (12:00)
[2020-03-26] MEDS: Ondansetron 4 MG/2 ML VIAL IVP PRN (15:32)
[2020-03-26] MEDS: Morphine Sulfate 2 MG/ML SYRINGE IVP PRN ×2 (15:33→20:31)
[2020-03-26] MEDS: *HR* Heparin 5,000 UNIT/ML VIAL SQ SCH ×2 (15:33→20:41)
[2020-03-26] MEDS: Aspirin Enteric Coated 81 MG Tablet PO SCH (18:13)
[2020-03-26] MEDS ORDERED: Albuterol 2.5 MG/3 ML NEBULIZER IH PRN (19:04)
[2020-03-26] MEDS ORDERED: Nitroglycerin 0.4 MG TAB.SUBL SL PRN (19:31)
[2020-03-26] MEDS ORDERED: Nystatin Cream 15 GM TUBE TP PRN (19:31)
[2020-03-26] MEDS: Baclofen 10 MG TABLET PO SCH ×2 (20:30→20:41)
[2020-03-26] MEDS: Pregabalin 75 MG CAPSULE PO SCH ×2 (20:30→20:41)
[2020-03-26] MEDS: amLODIPine 5 MG TABLET PO SCH ×2 (20:30→20:41)
[2020-03-26] MEDS: Fluticasone Propionate Nasal 50 MCG/SPRAY BOTTLE NS SCH (20:31)
[2020-03-26] MEDS: Budesonide/Formoterol 160/4.5 1 PUFF INH IH SCH (20:36)
[2020-03-27] MEDS: *HR* Heparin 5,000 UNIT/ML VIAL SQ SCH ×3 (04:07→20:52)
[2020-03-27 05:24] LABS: Basophils % 0.1 %
[2020-03-27 05:25] LABS: Hematocrit 48.9 % (35.3-44.9); Hemoglobin 15.3 g/dL (11.5-15.4); Immature Granulocytes % 0.7 % (0-4); Lymphocytes # 0.5 K/mcL (0.6-4.6); Lymphocytes % 1.7 %; Mean Corpuscular HGB Conc 31.3 g/dL (31.6-35.5); Mean Corpuscular Hemoglobin 30.5 pg (28.0-33.3); Mean Corpuscular Volume 97.4 fL (83.0-100.0); Mean Platelet Volume 9.9 fL (9.4-12.4); Monocytes # 1.1 K/mcL (0.0-1.3); Monocytes % 3.8 %; Neutrophils # 26.3 K/mcL (1.6-8.9); Platelet Count 399 K/mcL (140-400); Red Blood Count 5.02 M/mcL (3.82-4.97); Red Cell Distribution Width 15.8 % (11.5-14.5); Segmented Neutrophils % 93.7 %; White Blood Count 28.1 K/mcL (4.3-11.1)
[2020-03-27 05:41] LABS: Alanine Aminotransferase 18 Units/L (7-52); Albumin 3.6 g/dL (3.5-5.7); Albumin/Globulin Ratio 1.3 (1.1-2.2); Alkaline Phosphatase 82 Units/L (34-104); Aspartate Amino Transferase 14 Units/L (13-39); BUN/Creatinine Ratio 21 (6-26); Bilirubin,Total 0.8 mg/dL (0.3-1.0); Blood Urea Nitrogen 12 mg/dL (8-23); Calcium 8.1 mg/dL (8.6-10.3); Carbon Dioxide 27 mEq/L (23-29); Chloride 107 mEq/L (98-107); Globulin 2.8 g/dL (2.4-3.5); Glucose 150 mg/dL (70-105); Osmolality,Calculated 297 (280-300); Potassium 3.6 mEq/L (3.5-5.1); Sodium 142 mEq/L (136-145); Total Protein 6.4 g/dL (6.4-8.9); eGFR For African Americans > 60 (> 60); eGFR For Non-African Americans > 60 (> 60)
[2020-03-27] MEDS ORDERED: *HR* HYDROmorphone (PF) 1 MG/ML SYRINGE IM ONE (05:44)
[2020-03-27] MEDS ORDERED: Scopolamine Patch 1.5 MG PATCH.TD72 TD SCH (05:45)
[2020-03-27] MEDS ORDERED: Loratadine 10 MG TABLET PO SCH (09:00)
[2020-03-27] MEDS ORDERED: Isosorbide MONOnitrate (24 HR) 30 MG TAB.ER.24H PO SCH (09:00)
[2020-03-27] MEDS: Baclofen 10 MG TABLET PO SCH ×3 (09:34→20:52)
[2020-03-27] MEDS: Fluticasone Propionate Nasal 50 MCG/SPRAY BOTTLE NS SCH ×2 (09:34→20:53)
[2020-03-27] MEDS: Pregabalin 75 MG CAPSULE PO SCH ×2 (09:34→20:52)
[2020-03-27] MEDS: amLODIPine 5 MG TABLET PO SCH ×2 (09:34→20:52)
[2020-03-27] MEDS ORDERED: Ondansetron ODT 4 MG TAB.RAPDIS SL ONE (09:35)
[2020-03-27] MEDS: Budesonide/Formoterol 160/4.5 1 PUFF INH IH SCH ×2 (09:38→21:47)
[2020-03-27] MEDS: Tiotropium 18 MCG inhalation IH SCH (09:39)
[2020-03-27] MEDS ORDERED: *HR* Labetalol 20 MG/4 ML SYRINGE IVP PRN (11:22)
[2020-03-27] MEDS: Morphine Sulfate 2 MG/ML SYRINGE IVP PRN (12:25)
[2020-03-27] MEDS: Ondansetron 4 MG/2 ML VIAL IVP PRN (12:25)
[2020-03-27] MEDS: Ringers Solution, Lactated 1,000 ML IVC SCH ×3 (12:30→21:59)
[2020-03-27] MEDS: Aspirin Enteric Coated 81 MG Tablet PO SCH (18:16)
[2020-03-27] MEDS: Piperacillin/Tazobactam 3.375 GM in 0.9 % Sodium Chloride Mini Bag 100 ML IVPB SCH (18:17)
[2020-03-27] MEDS: 0.9 % Sodium Chloride 1,000 ML IVC SCH (18:17)
[2020-03-27 21:46] LABS: ABG Base Excess 3 mEq/L (-2 to 3); ABG HCO3 29 mEq/L (21-27); ABG Oxygen Saturation 90 % (95-98); ABG PCO2 54 mmHg (35-45); ABG PH 7.34 pH Units (7.32-7.45); ABG PO2 64 mmHg (85-104); ABG TCO2 31 mEq/L (20-26); Blood Gas FiO2 3.5 (1-15=lpm or21-100=%)
[2020-03-28] MEDS: Piperacillin/Tazobactam 3.375 GM in 0.9 % Sodium Chloride Mini Bag 100 ML IVPB SCH ×2 (01:34→13:51)
[2020-03-28] MEDS: 0.9 % Sodium Chloride 1,000 ML IVC SCH (01:38)
[2020-03-28] MEDS: Ringers Solution, Lactated 1,000 ML IVC SCH ×2 (01:39→17:14)
[2020-03-28] MEDS ORDERED: Aminoglycoside Consult 1 EACH MC ONE (04:34)
[2020-03-28] MEDS: *HR* Heparin 5,000 UNIT/ML VIAL SQ SCH (05:02)
[2020-03-28 06:18] LABS: Basophils % 0.2 %; Eosinophils % 0.2 %; Platelet Count 300 K/mcL (140-400)
[2020-03-28 06:19] LABS: Basophils # 0.1 K/mcL (0.0-0.2); Eosinophils # 0.1 K/mcL (0.0-0.6); Hematocrit 38.9 % (35.3-44.9); Hemoglobin 12.2 g/dL (11.5-15.4); Immature Granulocytes % 1.1 % (0-4); Lymphocytes # 0.9 K/mcL (0.6-4.6); Lymphocytes % 3.3 %; Mean Corpuscular HGB Conc 31.4 g/dL (31.6-35.5); Mean Corpuscular Hemoglobin 31.5 pg (28.0-33.3); Mean Corpuscular Volume 100.5 fL (83.0-100.0); Mean Platelet Volume 10.2 fL (9.4-12.4); Monocytes # 0.8 K/mcL (0.0-1.3); Monocytes % 3.2 %; Red Blood Count 3.87 M/mcL (3.82-4.97); Red Cell Distribution Width 16.5 % (11.5-14.5); White Blood Count 26.1 K/mcL (4.3-11.1)
[2020-03-28 06:36] LABS: Calcium 7.1 mg/dL (8.6-10.3); Magnesium 1.7 mg/dL (1.6-2.6)
[2020-03-28 06:53] LABS: Platelet Estimate Normal (Normal)
[2020-03-28] MEDS: Tiotropium 18 MCG inhalation IH SCH (09:48)
[2020-03-28 09:49] LABS: ABG Base Excess -4 mEq/L (-2 to 3); ABG HCO3 23 mEq/L (21-27); ABG Oxygen Saturation 90 % (95-98); ABG PCO2 49 mmHg (35-45); ABG PH 7.28 pH Units (7.32-7.45); ABG PO2 67 mmHg (85-104); ABG TCO2 25 mEq/L (20-26); Blood Gas FiO2 4.5 (1-15=lpm or21-100=%)
[2020-03-28] MEDS: Budesonide/Formoterol 160/4.5 1 PUFF INH IH SCH ×2 (09:49→22:48)
[2020-03-28] MEDS ORDERED: Ziprasidone 10 MG in Water for inj. (sterile) 0.5 ML IM ONE (10:06)
[2020-03-28] MEDS ORDERED: Isovue-370 500 ML BOTTLE IVP ONE (10:08)
[2020-03-28] MEDS ORDERED: Calcium Gluconate 1gm/50mL 1 GM/50 ML BAG IVPB ONE ×2 (10:36→14:21)
[2020-03-28] MEDS: 0.9 % Sodium Chloride 1,000 ML IVC ONE ×2 (10:43→13:12)
[2020-03-28] MEDS ORDERED: Albumin 25% 25gram/100mL 25 GM/100 ML IV.SOLN IVC SCH (10:45)
[2020-03-28] MEDS ORDERED: Vancomycin 1 EACH in 0.9 % Sodium Chloride 500 ML IVPB SCH (11:00)
[2020-03-28] MEDS ORDERED: Vancomycin 2,000 MG/520 ML IV.SOLN IVPB SCH (11:00)
[2020-03-28 11:13] LABS: Albumin 2.8 g/dL (3.5-5.7); Bilirubin,Direct 0.3 mg/dL (0.0-0.2); Bilirubin,Indirect 0.7 mg/dL (0.0-1.0); Globulin 2.7 g/dL (2.4-3.5); Total Protein 5.5 g/dL (6.4-8.9)
[2020-03-28] MEDS ORDERED: 0.9 % Sodium Chloride 500 ML IVC ONE (11:24)
[2020-03-28] MEDS ORDERED: Ringers Solution, Lactated 1,000 ML IVC ONE ×2 (13:16)
[2020-03-28 13:28] LABS: Bilirubin,Urine Small (Negative); Blood,Urine Large (Negative); Clarity,Urine Turbid (Clear); Color,Urine Dark Yellow (Yellow); Glucose,Urine (UA) Normal (Normal); Ketones,Urine Trace mg/dL (Negative); Leukocyte Esterase,Urine Negative (Negative); Nitrite,Urine Negative (Negative); Protein,Urine 100 mg/dL (Neg-Trace); Specific Gravity,Urine 1.025 (1.010-1.025); Urobilinogen,Urine Normal (Normal)
[2020-03-28 13:30] LABS: Bacteria,Urine None Seen per hpf (None-Few); Hyaline Casts,Urine Few per lpf (None-Few)
[2020-03-28] MEDS: Dexmedetomidine HCl 400 MCG/100 ML MLS IVC SCH ×2 (13:32→20:46)
[2020-03-28 13:35] LABS: Hematocrit 36.5 % (35.3-44.9); Hemoglobin 11.1 g/dL (11.5-15.4); Mean Corpuscular HGB Conc 30.4 g/dL (31.6-35.5); Mean Corpuscular Hemoglobin 30.7 pg (28.0-33.3); Mean Corpuscular Volume 100.8 fL (83.0-100.0); Mean Platelet Volume 10.1 fL (9.4-12.4); Platelet Count 265 K/mcL (140-400); Red Blood Count 3.62 M/mcL (3.82-4.97); Red Cell Distribution Width 16.4 % (11.5-14.5); White Blood Count 20.4 K/mcL (4.3-11.1)
[2020-03-28 13:44] LABS: Amorphous Sediment,Urine Many per hpf (Few); RBC,Urine 0-3 per hpf (0-3)
[2020-03-28 13:45] LABS: Squamous Epithelial Cell,Urine Moderate per lpf (None-Few); WBC,Urine 0-3 per hpf (0-3)
[2020-03-28] MEDS: Fluticasone Propionate Nasal 50 MCG/SPRAY BOTTLE NS SCH ×2 (13:51→20:47)
[2020-03-28] MEDS: Norepinephrine 4 MG/254 ML IV.SOLN IVC SCH ×2 (13:51→22:50)
[2020-03-28 13:59] LABS: ABG Base Excess -1 mEq/L (-2 to 3); ABG HCO3 25 mEq/L (21-27); ABG Oxygen Saturation 92 % (95-98); ABG PCO2 51 mmHg (35-45); ABG PH 7.31 pH Units (7.32-7.45); ABG PO2 71 mmHg (85-104); ABG TCO2 27 mEq/L (20-26)
[2020-03-28 14:01] LABS: BUN/Creatinine Ratio 13 (6-26); Blood Urea Nitrogen 32 mg/dL (8-23); C-Reactive Protein > 300 mg/L (Less than 10); Calcium 6.4 mg/dL (8.6-10.3); Carbon Dioxide 24 mEq/L (23-29); Chloride 111 mEq/L (98-107); Creatine Kinase 1451 Units/L (30-223); Glucose 105 mg/dL (70-105); Osmolality,Calculated 303 (280-300); Potassium 3.6 mEq/L (3.5-5.1); Sodium 143 mEq/L (136-145); eGFR For African Americans 23 (> 60); eGFR For Non-African Americans 19 (> 60)
[2020-03-28 14:07] LABS: Lymphocytes # 1.2 K/mcL (0.6-4.6); Monocytes # 0.8 K/mcL (0.0-1.3); Neutrophils # 18.4 K/mcL (1.6-8.9); Platelet Estimate Normal (Normal)
[2020-03-28] MEDS ORDERED: Calcium Gluconate 1gm/50mL 1 GM/50 ML BAG IVPB PRN (14:19)
[2020-03-28] MEDS ORDERED: Potassium Phosphate 44 MEQ in 0.9 % Sodium Chloride 250 ML IVPB PRN (14:19)
[2020-03-28] MEDS ORDERED: Potassium Chloride 40 MEQ/200 ML BAG IVPB PRN (14:19)
[2020-03-28 14:34] LABS: Lactate Dehydrogenase 361 Units/L (140-271); Lipase 468 Units/L (11-82); Magnesium 1.4 mg/dL (1.6-2.6); Phosphorous 2.8 mg/dL (2.7-4.5)
[2020-03-28] MEDS ORDERED: *HR* Midazolam HCl 5 MG/5 ML VIAL IVP ONE (15:42)
[2020-03-28] MEDS ORDERED: *HR* Midazolam HCl 2 MG/2 ML VIAL IVP ONE (15:42)
[2020-03-28] MEDS ORDERED: *HR* Heparin 5,000 UNIT/ML VIAL ONE (15:45)
[2020-03-28] MEDS ORDERED: Piperacillin/Tazobactam 3.375 GM in 0.9 % Sodium Chloride Mini Bag 100 ML IVPB SCH (16:00)
[2020-03-28] MEDS: Aspirin Enteric Coated 81 MG Tablet PO SCH (17:07)
[2020-03-28] MEDS ORDERED: Ziprasidone 10 MG in Water for inj. (sterile) 0.5 ML IM PRN (18:41)
[2020-03-28] MEDS ORDERED: FentaNYL (PF) 1,000 MCG/100 ML IV.SOLN IVC SCH (18:45)
[2020-03-28 18:54] LABS: Complement C3 113 mg/dL (87-200)
[2020-03-28] MEDS ORDERED: 0.9 % Sodium Chloride 500 ML ONE (19:39)
[2020-03-28 20:32] LABS: VBG Ionized Calcium 0.98 mmol/L (1.15-1.35)
[2020-03-28] MEDS ORDERED: Baclofen 10 MG TABLET PO SCH (22:00)
[2020-03-28] MEDS: Ipratropium/Albuterol Neb 3 ML IH SCH (22:48)
[2020-03-29 01:58] LABS: ABG Base Excess -3 mEq/L (-2 to 3); ABG HCO3 23 mEq/L (21-27); ABG Oxygen Saturation 94 % (95-98); ABG PCO2 44 mmHg (35-45); ABG PH 7.33 pH Units (7.32-7.45); ABG PO2 74 mmHg (85-104); ABG TCO2 25 mEq/L (20-26)
[2020-03-29] MEDS: Dexmedetomidine HCl 400 MCG/100 ML MLS IVC SCH (02:00)
[2020-03-29 03:03] LABS: Hematocrit 33.8 % (35.3-44.9); Hemoglobin 10.5 g/dL (11.5-15.4); Mean Corpuscular HGB Conc 31.1 g/dL (31.6-35.5); Mean Corpuscular Hemoglobin 31.1 pg (28.0-33.3); Mean Platelet Volume 10.3 fL (9.4-12.4); Platelet Count 250 K/mcL (140-400); Red Blood Count 3.38 M/mcL (3.82-4.97); Red Cell Distribution Width 16.4 % (11.5-14.5); White Blood Count 17.2 K/mcL (4.3-11.1)
[2020-03-29 03:27] LABS: Calcium 7.2 mg/dL (8.6-10.3); Potassium 4.2 mEq/L (3.5-5.1)
[2020-03-29] MEDS: Ringers Solution, Lactated 1,000 ML IVC SCH (03:35)
[2020-03-29 03:49] LABS: Neutrophils # 17.2 K/mcL (1.6-8.9)
[2020-03-29] MEDS: Ipratropium/Albuterol Neb 3 ML IH SCH (03:49)
[2020-03-29 03:50] LABS: Platelet Estimate Normal (Normal)
[2020-03-29 04:15] VITALS: BP 128/61
[2020-03-29] MEDS ORDERED: Pantoprazole 40 MG VIAL IVP SCH (09:00)
[2020-03-29] MEDS ORDERED: Pregabalin 50 MG CAPSULE PO SCH (21:00)
== END 2020-03-29 04:35 | disposition short-term general hospital (02) | DRG 871 ==
LOC: EMEROOARM 07:59 → 3ANU 07:59 → SUATTDRO 10:02 → 3ANU 12:00 → ICNU 03-28 12:07
PROVIDERS: ADMIT Internal Medicine; ATTEND Internal Medicine

== ENCOUNTER 2020-08-27 15:00 | Observation (INO) ==
[2020-08-27] MEDS ORDERED: Dexamethasone 4 MG/ML VIAL IVP STA (15:30)
[2020-08-27] MEDS ORDERED: 0.9 % Sodium Chloride 1,000 ML IVC ONE (15:32)
[2020-08-27] MEDS ORDERED: Morphine Sulfate 2 MG/ML SYRINGE IVP ONE (15:33)
[2020-08-27] MEDS ORDERED: Ondansetron 4 MG/2 ML VIAL IVP ONE (15:33)
[2020-08-27 16:09] LABS: Basophils % 0.3 %; Eosinophils # 0.2 K/mcL (0.0-0.6); Eosinophils % 2.5 %; Hematocrit 37.9 % (35.3-44.9); Hemoglobin 11.9 g/dL (11.5-15.4); Immature Granulocytes % 0.4 % (0-4); Lymphocytes # 0.8 K/mcL (0.6-4.6); Lymphocytes % 11.2 %; Mean Corpuscular HGB Conc 31.4 g/dL (31.6-35.5); Mean Corpuscular Hemoglobin 28.3 pg (28.0-33.3); Mean Platelet Volume 10.1 fL (9.4-12.4); Monocytes # 0.4 K/mcL (0.0-1.3); Monocytes % 5.9 %; Neutrophils # 5.8 K/mcL (1.6-8.9); Platelet Count 389 K/mcL (140-400); Red Blood Count 4.21 M/mcL (3.82-4.97); Red Cell Distribution Width 14.3 % (11.5-14.5); Segmented Neutrophils % 79.7 %; White Blood Count 7.2 K/mcL (4.3-11.1)
[2020-08-27 16:13] LABS: D-Dimer 1006 ng/mLFEU (0-500)
[2020-08-27 16:15] LABS: Fibrinogen 793 mg/dL (169-393)
[2020-08-27 16:19] LABS: Alanine Aminotransferase 16 Units/L (7-52); Albumin 3.9 g/dL (3.5-5.7); Albumin/Globulin Ratio 1.1 (1.1-2.2); Alkaline Phosphatase 59 Units/L (34-104); Aspartate Amino Transferase 21 Units/L (13-39); BUN/Creatinine Ratio 26 (6-26); Bilirubin,Total 0.7 mg/dL (0.3-1.0); Blood Urea Nitrogen 15 mg/dL (8-23); Calcium 9.8 mg/dL (8.6-10.3); Carbon Dioxide 30 mEq/L (23-29); Chloride 102 mEq/L (98-107); Globulin 3.7 g/dL (2.4-3.5); Glucose 100 mg/dL (70-105); Osmolality,Calculated 297 (280-300); Potassium 3.2 mEq/L (3.5-5.1); Sodium 143 mEq/L (136-145); Total Protein 7.6 g/dL (6.4-8.9); Troponin I < 0.03 ng/mL (< 0.04); eGFR For African Americans > 60 (> 60); eGFR For Non-African Americans > 60 (> 60)
[2020-08-27] MEDS ORDERED: Azithromycin 500 MG in 0.9 % Sodium Chloride 250 ML IVPB ONE (16:22)
[2020-08-27] MEDS ORDERED: cefTRIAXone 1,000 MG in Water for inj. (sterile) 10 ML IVP ONE (16:22)
[2020-08-27] MEDS ORDERED: Isovue-370 500 ML BOTTLE IVP ONE (16:23)
[2020-08-27 19:52] LABS: Lipase 21 Units/L (11-82)
[2020-08-27 21:11] LABS: Adenovirus Not Detected (Not Detect); Bordetella Pertussis Not Detected (Not Detect); Chlamydophila pneumoniae Not Detected (Not Detect); Coronavirus 229E Not Detected (Not Detect); Coronavirus HKU1 Not Detected (Not Detect); Coronavirus NL63 Not Detected (Not Detect); Coronavirus OC43 Not Detected (Not Detect); Human Metapneumovirus Not Detected (Not Detect); Human Rhinovirus/Enterovirus Not Detected (Not Detect); Influenza A Subtype 2009 H1 Not Detected (Not Detect); Influenza B Not Detected (Not Detect); Mycoplasma pneumoniae Not Detected (Not Detect); Parainfluenza Virus 1 Not Detected (Not Detect); Parainfluenza Virus 2 Not Detected (Not Detect); Parainfluenza Virus 3 Not Detected (Not Detect); Parainfluenza Virus 4 Not Detected (Not Detect); Respiratory Syncytial Virus Not Detected (Not Detect)
[2020-08-27 21:13] LABS: SARS-CoV-2 DETECTED (Not Detect)
[2020-08-27] MEDS ORDERED: Ondansetron 4 MG/2 ML VIAL IVP PRN (23:36)
[2020-08-27] MEDS ORDERED: Naloxone 0.4 MG/ML INJ IVP PRN (23:36)
[2020-08-28] MEDS: Ringers Solution, Lactated 1,000 ML IVC SCH ×2 (00:21→18:57)
[2020-08-28 01:21] LABS: Alanine Aminotransferase 15 Units/L (7-52); Albumin 3.8 g/dL (3.5-5.7); Alkaline Phosphatase 57 Units/L (34-104); Aspartate Amino Transferase 20 Units/L (13-39); BUN/Creatinine Ratio 25 (6-26); Bilirubin,Total 0.6 mg/dL (0.3-1.0); Blood Urea Nitrogen 14 mg/dL (8-23); Calcium 9.1 mg/dL (8.6-10.3); Carbon Dioxide 24 mEq/L (23-29); Chloride 103 mEq/L (98-107); Chol/HDL Ratio 6.1 (0-4.9); Cholesterol 190 mg/dL (< 200); Glucose 144 mg/dL (70-105); HDL Cholesterol 31 mg/dL (40-59); LDL Cholesterol,Calculated 114 mg/dL (< 100); Osmolality,Calculated 295 (280-300); Potassium 3.6 mEq/L (3.5-5.1); Sodium 141 mEq/L (136-145); Total Protein 7.8 g/dL (6.4-8.9); Triglycerides 224 mg/dL (< 150); eGFR For African Americans > 60 (> 60); eGFR For Non-African Americans > 60 (> 60)
[2020-08-28 02:00] LABS: Basophils % 0.3 %; Hematocrit 37.9 % (35.3-44.9); Hemoglobin 11.9 g/dL (11.5-15.4); Immature Granulocytes % 0.9 % (0-4); Lymphocytes # 0.4 K/mcL (0.6-4.6); Lymphocytes % 7.3 %; Mean Corpuscular HGB Conc 31.4 g/dL (31.6-35.5); Mean Corpuscular Hemoglobin 28.1 pg (28.0-33.3); Mean Corpuscular Volume 89.4 fL (83.0-100.0); Mean Platelet Volume 10.7 fL (9.4-12.4); Monocytes # 0.1 K/mcL (0.0-1.3); Monocytes % 1.7 %; Neutrophils # 5.2 K/mcL (1.6-8.9); Platelet Count 389 K/mcL (140-400); Red Blood Count 4.24 M/mcL (3.82-4.97); Red Cell Distribution Width 14.4 % (11.5-14.5); Segmented Neutrophils % 89.8 %; White Blood Count 5.8 K/mcL (4.3-11.1)
[2020-08-28] MEDS ORDERED: Albuterol 2.5 MG/3 ML NEBULIZER IH SCH (08:00)
[2020-08-28] MEDS: Ipratropium 1 PUFF INHALER IH SCH ×4 (08:32→19:59)
[2020-08-28] MEDS: Dexamethasone 4 MG/ML VIAL IVP SCH (09:30)
[2020-08-28] MEDS: cefTRIAXone 2,000 MG in 0.9 % Sodium Chloride Mini Bag 100 ML IVP SCH (09:31)
[2020-08-28 14:59] LABS: C-Reactive Protein 56 mg/L (Less than 10)
[2020-08-28] MEDS: Baclofen 10 MG TABLET PO SCH ×2 (15:29→21:53)
[2020-08-28 15:50] LABS: Ferritin 144 ng/mL (10-120)
[2020-08-28] MEDS ORDERED: Azithromycin 500 MG in 0.9 % Sodium Chloride 250 ML IVPB SCH (16:00)
[2020-08-28] MEDS ORDERED: cefTRIAXone 1,000 MG in 0.9 % Sodium Chloride Mini Bag 100 ML IVPB SCH (16:00)
[2020-08-28] MEDS ORDERED: Aspirin Enteric Coated 81 MG Tablet PO SCH (18:00)
[2020-08-28] MEDS ORDERED: Azithromycin 250 MG TABLET PO SCH (18:00)
[2020-08-28 20:03] LABS: mecA Methicillin-Resist Gene DETECTED (Not Detect)
[2020-08-28 20:04] LABS: Acinetobacter baumannii by PCR Not Detected (Not Detect); Candida albicans by PCR Not Detected (Not Detect); Candida glabrata by PCR Not Detected (Not Detect); Candida krusei by PCR Not Detected (Not Detect); Candida parapsilosis by PCR Not Detected (Not Detect); Candida tropicalis by PCR Not Detected (Not Detect); Enterobacter cloacae Cmplx PCR Not Detected (Not Detect); Enterobacteriaceae by PCR Not Detected (Not Detect); Enterococcus by PCR Not Detected (Not Detect); Escherichia coli by PCR Not Detected (Not Detect); Klebsiella oxytoca by PCR Not Detected (Not Detect); Klebsiella pneumoniae by PCR Not Detected (Not Detect); Proteus by PCR Not Detected (Not Detect); Pseudomonas aeruginosa by PCR Not Detected (Not Detect); Serratia marcescens by PCR Not Detected (Not Detect); Staphylococcus aureus by PCR Not Detected (Not Detect); Staphylococcus by PCR DETECTED (Not Detect); Streptococcus agalactiae(B)PCR Not Detected (Not Detect); Streptococcus by PCR Not Detected (Not Detect); Streptococcus pneumoniae PCR Not Detected (Not Detect); Streptococcus pyogenes (A) PCR Not Detected (Not Detect)
[2020-08-28] MEDS ORDERED: Pregabalin 75 MG CAPSULE PO SCH (21:00)
[2020-08-29] MEDS: Ipratropium 1 PUFF INHALER IH SCH ×7 (00:06→20:05)
[2020-08-29] MEDS: Nystatin POWDER 30 GM BOTTLE TP SCH ×2 (01:03→09:28)
[2020-08-29] MEDS ORDERED: *HR* Heparin 5,000 UNIT/ML VIAL SQ SCH (06:00)
[2020-08-29] MEDS ORDERED: *HR* Enoxaparin 40 MG/0.4 ML SYRINGE SQ SCH (06:00)
[2020-08-29 06:10] LABS: Hematocrit 34.2 % (35.3-44.9); Hemoglobin 11.1 g/dL (11.5-15.4); Mean Corpuscular HGB Conc 32.5 g/dL (31.6-35.5); Mean Corpuscular Hemoglobin 28.6 pg (28.0-33.3); Mean Corpuscular Volume 88.1 fL (83.0-100.0); Mean Platelet Volume 10.1 fL (9.4-12.4); Platelet Count 396 K/mcL (140-400); Red Blood Count 3.88 M/mcL (3.82-4.97); Red Cell Distribution Width 14.2 % (11.5-14.5); White Blood Count 6.5 K/mcL (4.3-11.1)
[2020-08-29 06:26] LABS: BUN/Creatinine Ratio 32 (6-26); Blood Urea Nitrogen 17 mg/dL (8-23); Calcium 8.8 mg/dL (8.6-10.3); Carbon Dioxide 28 mEq/L (23-29); Chloride 103 mEq/L (98-107); Glucose 108 mg/dL (70-105); Osmolality,Calculated 294 (280-300); Potassium 3.2 mEq/L (3.5-5.1); Sodium 141 mEq/L (136-145); eGFR For African Americans > 60 (> 60); eGFR For Non-African Americans > 60 (> 60)
[2020-08-29] MEDS: Baclofen 10 MG TABLET PO SCH (08:58)
[2020-08-29] MEDS: cefTRIAXone 2,000 MG in 0.9 % Sodium Chloride Mini Bag 100 ML IVP SCH (08:59)
[2020-08-29] MEDS: Dexamethasone 4 MG/ML VIAL IVP SCH (08:59)
[2020-08-29] MEDS ORDERED: (Roflumilast [Daliresp] 500 MCG) PO SCH (09:00)
[2020-08-29 11:44] VITALS: BP 153/79
[2020-08-30] MEDS: Ipratropium 1 PUFF INHALER IH SCH ×2 (00:18→03:52)
== END 2020-08-29 15:24 | disposition home or self-care (01) ==
LOC: EMEROOARM 15:00 → 2NENU 15:00
PROVIDERS: ADMIT Student in an Organized Health Care Education/Training Program; ATTEND Student in an Organized Health Care Education/Training Program

== ENCOUNTER 2021-12-08 15:26 | Inpatient (IN) ==
[2021-12-08] MEDS ORDERED: Ipratropium/Albuterol Neb 3 ML IH ONE ×2 (15:38→17:10)
[2021-12-08] MEDS ORDERED: methylPREDNISolone 125 MG/2 ML VIAL IVP ONE (15:50)
[2021-12-08] MEDS ORDERED: cefTRIAXone 2,000 MG in 0.9 % Sodium Chloride Mini Bag 100 ML IVPB ONE (15:52)
[2021-12-08] MEDS ORDERED: Azithromycin 500 MG in 0.9 % Sodium Chloride 250 ML IVPB ONE (15:52)
[2021-12-08 16:14] LABS: Basophils # 0.1 K/mcL (0.0-0.2); Basophils % 0.4 %; Eosinophils # 0.1 K/mcL (0.0-0.6); Eosinophils % 0.6 %; Hematocrit 42.5 % (35.3-44.9); Hemoglobin 13.6 g/dL (11.5-15.4); Immature Granulocytes % 1.1 % (0-4); Lymphocytes # 1.1 K/mcL (0.6-4.6); Lymphocytes % 7.9 %; Mean Corpuscular Hemoglobin 31.1 pg (28.0-33.3); Mean Corpuscular Volume 97.3 fL (83.0-100.0); Mean Platelet Volume 10.2 fL (9.4-12.4); Monocytes # 0.4 K/mcL (0.0-1.3); Monocytes % 2.9 %; Neutrophils # 12.4 K/mcL (1.6-8.9); Platelet Count 321 K/mcL (140-400); Red Blood Count 4.37 M/mcL (3.82-4.97); Red Cell Distribution Width 13.5 % (11.5-14.5); Segmented Neutrophils % 87.1 %; White Blood Count 14.2 K/mcL (4.3-11.1)
[2021-12-08 16:36] LABS: Troponin I < 0.03 ng/mL (< 0.04)
[2021-12-08 16:55] LABS: BUN/Creatinine Ratio 29 (6-26); Blood Urea Nitrogen 23 mg/dL (8-23); Calcium 9.5 mg/dL (8.6-10.3); Carbon Dioxide 29 mEq/L (23-29); Chloride 99 mEq/L (98-107); Glucose 175 mg/dL (70-105); Osmolality,Calculated 296 (280-300); Potassium 4.6 mEq/L (3.5-5.1); Sodium 139 mEq/L (136-145); eGFR For African Americans > 60 (> 60); eGFR For Non-African Americans > 60 (> 60)
[2021-12-08] MEDS ORDERED: Naloxone 0.4 MG/ML INJ IVP PRN (18:46)
[2021-12-08] MEDS ORDERED: Ondansetron ODT 4 MG TAB.RAPDIS SL PRN (18:46)
[2021-12-08] MEDS ORDERED: Melatonin 3 MG TABLET PO PRN (18:46)
[2021-12-08 19:28] LABS: Influenza A PCR Negative (Negative); Influenza B PCR Negative (Negative); Resp. Syncytial Virus PCR Negative (Negative)
[2021-12-08 19:38] LABS: SARS-CoV-2 by PCR (In House) Negative (Negative)
[2021-12-08] MEDS: Ipratropium 1 PUFF INHALER IH SCH (21:37)
[2021-12-08] MEDS: carvediloL 6.25 MG TABLET PO SCH (21:43)
[2021-12-08] MEDS: Nystatin POWDER 30 GM BOTTLE TP SCH (21:43)
[2021-12-08] MEDS: traZODone 50 MG TABLET PO SCH (21:43)
[2021-12-08] MEDS: amLODIPine 5 MG TABLET PO SCH (21:43)
[2021-12-08] MEDS: Aspirin Enteric Coated 81 MG Tablet PO SCH (21:43)
[2021-12-08] MEDS: Ranolazine 500 MG TAB.ER.12H PO SCH (21:43)
[2021-12-08] MEDS: GuaiFENesin/Codeine Oral Soln 5 ML UDC PO PRN (21:43)
[2021-12-08] MEDS: Pregabalin 75 MG CAPSULE PO SCH (21:44)
[2021-12-08] MEDS: Baclofen 10 MG TABLET PO PRN (21:44)
[2021-12-09] MEDS: Ipratropium 1 PUFF INHALER IH SCH ×3 (04:03→14:56)
[2021-12-09] MEDS: GuaiFENesin/Codeine Oral Soln 5 ML UDC PO PRN ×3 (06:18→20:29)
[2021-12-09 08:13] LABS: White Blood Count 12.7 K/mcL (4.3-11.1)
[2021-12-09 08:14] LABS: Basophils % 0.1 %; Hematocrit 40.1 % (35.3-44.9); Hemoglobin 12.6 g/dL (11.5-15.4); Lymphocytes # 0.7 K/mcL (0.6-4.6); Lymphocytes % 5.3 %; Mean Corpuscular HGB Conc 31.4 g/dL (31.6-35.5); Mean Corpuscular Hemoglobin 29.5 pg (28.0-33.3); Mean Corpuscular Volume 93.9 fL (83.0-100.0); Mean Platelet Volume 10.7 fL (9.4-12.4); Monocytes # 0.3 K/mcL (0.0-1.3); Monocytes % 2.4 %; Neutrophils # 11.6 K/mcL (1.6-8.9); Platelet Count 307 K/mcL (140-400); Red Blood Count 4.27 M/mcL (3.82-4.97); Red Cell Distribution Width 13.5 % (11.5-14.5); Segmented Neutrophils % 91.2 %
[2021-12-09] MEDS: dexAMETHasone 4 MG TABLET PO SCH (08:49)
[2021-12-09] MEDS: Pregabalin 75 MG CAPSULE PO SCH ×2 (08:49→20:28)
[2021-12-09] MEDS: amLODIPine 5 MG TABLET PO SCH ×2 (08:49→20:28)
[2021-12-09] MEDS: Ranolazine 500 MG TAB.ER.12H PO SCH ×2 (08:49→20:29)
[2021-12-09] MEDS: carvediloL 6.25 MG TABLET PO SCH ×2 (08:49→16:26)
[2021-12-09] MEDS: traZODone 50 MG TABLET PO SCH ×2 (08:50→20:29)
[2021-12-09] MEDS: Nystatin POWDER 30 GM BOTTLE TP SCH ×3 (08:52→20:29)
[2021-12-09] MEDS: Baclofen 10 MG TABLET PO PRN (08:56)
[2021-12-09] MEDS: Aspirin Enteric Coated 81 MG Tablet PO SCH (16:26)
[2021-12-09] MEDS ORDERED: Ipratropium/Albuterol Neb 3 ML ONE (20:10)
[2021-12-09] MEDS: Ipratropium/Albuterol Neb 3 ML IH SCH (20:16)
[2021-12-09] MEDS: Fluticasone Propionate Nasal 50 MCG/SPRAY BOTTLE NS SCH (20:28)
[2021-12-09] MEDS: Sulfamethoxazole/Trimeth DS 1 EACH TABLET PO SCH (20:28)
[2021-12-10] MEDS: Ipratropium/Albuterol Neb 3 ML IH SCH ×4 (04:40→19:57)
[2021-12-10 06:21] LABS: Basophils # 0.1 K/mcL (0.0-0.2); Basophils % 0.5 %; Hematocrit 43.7 % (35.3-44.9); Hemoglobin 13.4 g/dL (11.5-15.4); Mean Corpuscular HGB Conc 30.7 g/dL (31.6-35.5); Mean Corpuscular Hemoglobin 29.8 pg (28.0-33.3); Mean Corpuscular Volume 97.1 fL (83.0-100.0); Mean Platelet Volume 10.3 fL (9.4-12.4); Monocytes # 0.6 K/mcL (0.0-1.3); Monocytes % 4.2 %; Neutrophils # 11.8 K/mcL (1.6-8.9); Platelet Count 313 K/mcL (140-400); Red Cell Distribution Width 13.7 % (11.5-14.5); Segmented Neutrophils % 86.3 %; White Blood Count 13.7 K/mcL (4.3-11.1)
[2021-12-10 07:07] LABS: BUN/Creatinine Ratio 34 (6-26); Blood Urea Nitrogen 25 mg/dL (8-23); Calcium 9.9 mg/dL (8.6-10.3); Carbon Dioxide 29 mEq/L (23-29); Chloride 98 mEq/L (98-107); Glucose 188 mg/dL (70-105); Osmolality,Calculated 289 (280-300); Potassium 4.3 mEq/L (3.5-5.1); Sodium 135 mEq/L (136-145); eGFR For African Americans > 60 (> 60); eGFR For Non-African Americans > 60 (> 60)
[2021-12-10] MEDS: Sulfamethoxazole/Trimeth DS 1 EACH TABLET PO SCH ×2 (08:47→20:43)
[2021-12-10] MEDS: amLODIPine 5 MG TABLET PO SCH ×2 (08:47→20:43)
[2021-12-10] MEDS: Pregabalin 75 MG CAPSULE PO SCH ×2 (08:47→20:43)
[2021-12-10] MEDS: Ranolazine 500 MG TAB.ER.12H PO SCH ×2 (08:48→20:42)
[2021-12-10] MEDS: dexAMETHasone 4 MG TABLET PO SCH (08:49)
[2021-12-10] MEDS: Loratadine 10 MG TABLET PO SCH (08:49)
[2021-12-10] MEDS: carvediloL 6.25 MG TABLET PO SCH ×2 (08:51→16:36)
[2021-12-10] MEDS: Fluticasone Propionate Nasal 50 MCG/SPRAY BOTTLE NS SCH ×2 (08:53→20:43)
[2021-12-10] MEDS: Baclofen 10 MG TABLET PO PRN ×2 (08:57→20:42)
[2021-12-10] MEDS: Nystatin POWDER 30 GM BOTTLE TP SCH ×3 (09:16→20:44)
[2021-12-10] MEDS: Tiotropium 10 INH DOSE IH SCH (09:30)
[2021-12-10] MEDS ORDERED: MethylPREDNISolone 40 MG/ML VIAL IVP ONE (12:12)
[2021-12-10] MEDS: Aspirin Enteric Coated 81 MG Tablet PO SCH (16:36)
[2021-12-10] MEDS: traZODone 50 MG TABLET PO SCH (20:43)
[2021-12-11 03:02] LABS: Basophils # 0.1 K/mcL (0.0-0.2); Basophils % 0.7 %; Hematocrit 46.9 % (35.3-44.9); Hemoglobin 14.7 g/dL (11.5-15.4); Immature Granulocytes % 2.7 % (0-4); Lymphocytes % 5.4 %; Mean Corpuscular HGB Conc 31.3 g/dL (31.6-35.5); Mean Corpuscular Hemoglobin 30.2 pg (28.0-33.3); Mean Corpuscular Volume 96.3 fL (83.0-100.0); Mean Platelet Volume 10.3 fL (9.4-12.4); Monocytes # 0.7 K/mcL (0.0-1.3); Monocytes % 3.9 %; Neutrophils # 15.4 K/mcL (1.6-8.9); Platelet Count 386 K/mcL (140-400); Red Blood Count 4.87 M/mcL (3.82-4.97); Red Cell Distribution Width 13.7 % (11.5-14.5); Segmented Neutrophils % 87.3 %; White Blood Count 17.6 K/mcL (4.3-11.1)
[2021-12-11] MEDS: Ipratropium/Albuterol Neb 3 ML IH SCH ×4 (04:12→20:14)
[2021-12-11] MEDS: Tiotropium 10 INH DOSE IH SCH (07:56)
[2021-12-11] MEDS ORDERED: Acetaminophen 325 MG TABLET PO PRN (09:22)
[2021-12-11] MEDS: Sulfamethoxazole/Trimeth DS 1 EACH TABLET PO SCH (09:55)
[2021-12-11] MEDS: Fluticasone Propionate Nasal 50 MCG/SPRAY BOTTLE NS SCH ×2 (09:56→20:55)
[2021-12-11] MEDS: Nystatin POWDER 30 GM BOTTLE TP SCH ×3 (09:56→20:54)
[2021-12-11] MEDS: Ranolazine 500 MG TAB.ER.12H PO SCH ×2 (09:56→20:53)
[2021-12-11] MEDS: Loratadine 10 MG TABLET PO SCH (09:57)
[2021-12-11] MEDS: amLODIPine 5 MG TABLET PO SCH ×2 (09:57→20:54)
[2021-12-11] MEDS: Pregabalin 75 MG CAPSULE PO SCH ×2 (09:57→20:54)
[2021-12-11] MEDS: MethylPREDNISolone 40 MG/ML VIAL IVP SCH (09:57)
[2021-12-11] MEDS: carvediloL 6.25 MG TABLET PO SCH ×2 (10:08→17:31)
[2021-12-11] MEDS: Baclofen 10 MG TABLET PO PRN (10:09)
[2021-12-11 12:00] LABS: Adenovirus Not Detected (Not Detect); Bordetella Pertussis Not Detected (Not Detect); Chlamydophila pneumoniae Not Detected (Not Detect); Coronavirus 229E Not Detected (Not Detect); Coronavirus HKU1 Not Detected (Not Detect); Coronavirus NL63 Not Detected (Not Detect); Coronavirus OC43 Not Detected (Not Detect); Human Metapneumovirus Not Detected (Not Detect); Human Rhinovirus/Enterovirus Not Detected (Not Detect); Influenza A Subtype 2009 H1 Not Detected (Not Detect); Influenza B Not Detected (Not Detect); Mycoplasma pneumoniae Not Detected (Not Detect); Parainfluenza Virus 1 Not Detected (Not Detect); Parainfluenza Virus 2 Not Detected (Not Detect); Parainfluenza Virus 3 Not Detected (Not Detect); Parainfluenza Virus 4 Not Detected (Not Detect); Respiratory Syncytial Virus Not Detected (Not Detect); SARS-CoV-2 Not Detected (Not Detect)
[2021-12-11] MEDS: Aspirin Enteric Coated 81 MG Tablet PO SCH (17:32)
[2021-12-11] MEDS: traZODone 50 MG TABLET PO SCH (20:53)
[2021-12-12] MEDS: Ipratropium/Albuterol Neb 3 ML IH SCH ×4 (03:43→19:55)
[2021-12-12] MEDS: Baclofen 10 MG TABLET PO PRN ×2 (09:02→20:26)
[2021-12-12] MEDS: carvediloL 6.25 MG TABLET PO SCH ×2 (09:03→18:09)
[2021-12-12] MEDS: amLODIPine 5 MG TABLET PO SCH ×2 (09:03→20:26)
[2021-12-12] MEDS: Loratadine 10 MG TABLET PO SCH (09:03)
[2021-12-12] MEDS: Pregabalin 75 MG CAPSULE PO SCH ×2 (09:03→20:26)
[2021-12-12] MEDS: Ranolazine 500 MG TAB.ER.12H PO SCH ×2 (09:03→20:26)
[2021-12-12] MEDS: Nystatin POWDER 30 GM BOTTLE TP SCH ×3 (09:04→20:27)
[2021-12-12] MEDS: MethylPREDNISolone 40 MG/ML VIAL IVP SCH (09:04)
[2021-12-12] MEDS: Fluticasone Propionate Nasal 50 MCG/SPRAY BOTTLE NS SCH ×2 (09:05→20:26)
[2021-12-12 10:01] LABS: Basophils # 0.1 K/mcL (0.0-0.2); Basophils % 0.3 %; Eosinophils % 0.1 %; Hematocrit 45.7 % (35.3-44.9); Immature Granulocytes % 1.9 % (0-4); Lymphocytes # 2.1 K/mcL (0.6-4.6); Lymphocytes % 10.4 %; Mean Corpuscular HGB Conc 32.8 g/dL (31.6-35.5); Mean Corpuscular Hemoglobin 30.4 pg (28.0-33.3); Mean Corpuscular Volume 92.5 fL (83.0-100.0); Mean Platelet Volume 10.7 fL (9.4-12.4); Monocytes # 1.4 K/mcL (0.0-1.3); Monocytes % 6.9 %; Neutrophils # 16.5 K/mcL (1.6-8.9); Nucleated Red Blood Cells 0.1 /100 WBC (0); Platelet Count 386 K/mcL (140-400); Red Blood Count 4.94 M/mcL (3.82-4.97); Segmented Neutrophils % 80.4 %; White Blood Count 20.5 K/mcL (4.3-11.1)
[2021-12-12] MEDS: Tiotropium 10 INH DOSE IH SCH (11:11)
[2021-12-12] MEDS: Aspirin Enteric Coated 81 MG Tablet PO SCH (18:09)
[2021-12-12] MEDS: Budesonide/Formoterol 160/4.5 1 PUFF INH IH SCH (19:55)
[2021-12-12] MEDS: GuaiFENesin/Codeine Oral Soln 5 ML UDC PO PRN (20:26)
[2021-12-12] MEDS: traZODone 50 MG TABLET PO SCH (20:26)
[2021-12-13 02:11] LABS: Basophils # 0.1 K/mcL (0.0-0.2); Basophils % 0.4 %; Eosinophils % 0.1 %; Hematocrit 45.1 % (35.3-44.9); Hemoglobin 14.2 g/dL (11.5-15.4); Immature Granulocytes % 1.9 % (0-4); Lymphocytes % 6.1 %; Mean Corpuscular HGB Conc 31.5 g/dL (31.6-35.5); Mean Corpuscular Volume 95.1 fL (83.0-100.0); Mean Platelet Volume 10.1 fL (9.4-12.4); Monocytes # 1.2 K/mcL (0.0-1.3); Monocytes % 7.4 %; Neutrophils # 14.1 K/mcL (1.6-8.9); Platelet Count 366 K/mcL (140-400); Red Blood Count 4.74 M/mcL (3.82-4.97); Red Cell Distribution Width 14.4 % (11.5-14.5); Segmented Neutrophils % 84.1 %; White Blood Count 16.8 K/mcL (4.3-11.1)
[2021-12-13] MEDS: Ipratropium/Albuterol Neb 3 ML IH SCH ×2 (03:42→10:28)
[2021-12-13 07:11] VITALS: BP 169/83; PULSE 81; TEMP 98.4; O2SAT 93
[2021-12-13] MEDS ORDERED: Azithromycin 250 MG TABLET PO ONE (08:05)
[2021-12-13] MEDS: Budesonide/Formoterol 160/4.5 1 PUFF INH IH SCH (10:28)
[2021-12-13] MEDS: Tiotropium 10 INH DOSE IH SCH (10:28)
[2021-12-13] MEDS: Ranolazine 500 MG TAB.ER.12H PO SCH (11:03)
[2021-12-13] MEDS: Pregabalin 75 MG CAPSULE PO SCH (11:03)
[2021-12-13] MEDS: amLODIPine 5 MG TABLET PO SCH (11:04)
[2021-12-13] MEDS: Loratadine 10 MG TABLET PO SCH (11:04)
[2021-12-13] MEDS: MethylPREDNISolone 40 MG/ML VIAL IVP SCH (11:04)
[2021-12-13] MEDS: Nystatin POWDER 30 GM BOTTLE TP SCH (11:05)
[2021-12-13] MEDS: Fluticasone Propionate Nasal 50 MCG/SPRAY BOTTLE NS SCH (11:05)
[2021-12-13] MEDS: Baclofen 10 MG TABLET PO PRN (11:08)
[2021-12-13] MEDS: carvediloL 6.25 MG TABLET PO SCH (11:08)
== END 2021-12-13 13:00 | disposition home or self-care (01) | DRG 191 ==
LOC: 3BNU 15:26 → EMEROOARM 15:26 → SUATTDRO 18:03 → 3BNU 18:14
PROVIDERS: ADMIT Student in an Organized Health Care Education/Training Program; ATTEND Internal Medicine

== ENCOUNTER 2022-04-09 18:47 | Inpatient (IN) ==
[2022-04-09 20:28] LABS: Basophils % 0.2 %; Eosinophils # 0.1 K/mcL (0.0-0.6); Eosinophils % 0.9 %; Hemoglobin 11.6 g/dL (11.5-15.4); Immature Granulocytes % 0.3 % (0-4); Lymphocytes # 0.8 K/mcL (0.6-4.6); Lymphocytes % 5.1 %; Mean Corpuscular HGB Conc 31.4 g/dL (31.6-35.5); Mean Corpuscular Hemoglobin 30.4 pg (28.0-33.3); Mean Corpuscular Volume 96.9 fL (83.0-100.0); Mean Platelet Volume 10.5 fL (9.4-12.4); Monocytes # 0.7 K/mcL (0.0-1.3); Monocytes % 4.8 %; Neutrophils # 13.5 K/mcL (1.6-8.9); Platelet Count 291 K/mcL (140-400); Red Blood Count 3.82 M/mcL (3.82-4.97); Red Cell Distribution Width 13.5 % (11.5-14.5); Segmented Neutrophils % 88.7 %; White Blood Count 15.3 K/mcL (4.3-11.1)
[2022-04-09] MEDS ORDERED: Azithromycin 500 MG in 0.9 % Sodium Chloride 250 ML IVPB ONE (20:29)
[2022-04-09] MEDS ORDERED: Ipratropium/Albuterol Neb 3 ML IH ONE ×2 (20:29→23:58)
[2022-04-09] MEDS ORDERED: methylPREDNISolone 125 MG/2 ML VIAL IVP ONE (20:29)
[2022-04-09 20:38] LABS: INR 1.2; Prothrombin Time 13.5 Seconds (9.4-12.1)
[2022-04-09 20:40] LABS: Activated Partial Thrombo Time 31.7 Seconds (26.0-36.0)
[2022-04-09] MEDS ORDERED: Isovue-370 500 ML BOTTLE IVP ONE (20:41)
[2022-04-09 20:47] LABS: BUN/Creatinine Ratio 13 (6-26); Blood Urea Nitrogen 8 mg/dL (8-23); Calcium 9.2 mg/dL (8.6-10.3); Carbon Dioxide 34 mEq/L (23-29); Chloride 97 mEq/L (98-107); Glucose 114 mg/dL (70-105); Osmolality,Calculated 291 (280-300); Potassium 3.3 mEq/L (3.5-5.1); Sodium 141 mEq/L (136-145); Troponin I < 0.03 ng/mL (< 0.04); eGFR For African Americans > 60 (> 60); eGFR For Non-African Americans > 60 (> 60)
[2022-04-09 21:27] LABS: Adenovirus Not Detected (Not Detect); Bordetella Pertussis Not Detected (Not Detect); Chlamydophila pneumoniae Not Detected (Not Detect); Coronavirus 229E Not Detected (Not Detect); Coronavirus HKU1 Not Detected (Not Detect); Coronavirus NL63 Not Detected (Not Detect); Coronavirus OC43 Not Detected (Not Detect); Human Metapneumovirus Not Detected (Not Detect); Human Rhinovirus/Enterovirus Not Detected (Not Detect); Influenza A Subtype 2009 H1 Not Detected (Not Detect); Influenza B Not Detected (Not Detect); Mycoplasma pneumoniae Not Detected (Not Detect); Parainfluenza Virus 1 Not Detected (Not Detect); Parainfluenza Virus 2 Not Detected (Not Detect); Parainfluenza Virus 3 Not Detected (Not Detect); Parainfluenza Virus 4 Not Detected (Not Detect); Respiratory Syncytial Virus Not Detected (Not Detect); SARS-CoV-2 Not Detected (Not Detect)
[2022-04-09] MEDS ORDERED: Azithromycin 250 MG TABLET PO ONE (21:56)
[2022-04-09] MEDS ORDERED: predniSONE 20 MG TABLET PO ONE (21:56)
[2022-04-09] MEDS ORDERED: Ketorolac 30 MG/ML VIAL IM ONE (22:44)
[2022-04-09] MEDS ORDERED: *HR* Promethazine 25 MG/ML VIAL IM ONE (22:45)
[2022-04-09] MEDS ORDERED: cefTRIAXone 1,000 MG in 0.9 % Sodium Chloride Mini Bag 100 ML IVPB ONE (23:39)
[2022-04-10] MEDS ORDERED: Ipratropium/Albuterol Neb 3 ML IH ONE (01:27)
[2022-04-10] MEDS ORDERED: Naloxone 0.4 MG/ML INJ IVP PRN (01:37)
[2022-04-10] MEDS ORDERED: Ondansetron 4 MG/2 ML VIAL IVP PRN (01:37)
[2022-04-10] MEDS ORDERED: Acetaminophen 325 MG TABLET PO PRN (01:37)
[2022-04-10] MEDS: Ipratropium/Albuterol Neb 3 ML IH SCH ×6 (04:09→23:22)
[2022-04-10] MEDS ORDERED: Perflutren Lipid Microsphere 1.3 ML in 0.9 % Sodium Chloride 8.7 ML IVP PRN (05:01)
[2022-04-10] MEDS: *HR* Heparin 5,000 UNIT/ML VIAL SQ SCH ×3 (05:16→20:07)
[2022-04-10] MEDS ORDERED: MethylPREDNISolone 40 MG/ML VIAL IVP SCH ×2 (06:00→07:30)
[2022-04-10 06:28] LABS: Hematocrit 38.5 % (35.3-44.9); Hemoglobin 12.1 g/dL (11.5-15.4); Mean Corpuscular HGB Conc 31.4 g/dL (31.6-35.5); Mean Corpuscular Hemoglobin 30.4 pg (28.0-33.3); Mean Corpuscular Volume 96.7 fL (83.0-100.0); Mean Platelet Volume 10.9 fL (9.4-12.4); Platelet Count 306 K/mcL (140-400); Red Blood Count 3.98 M/mcL (3.82-4.97); Red Cell Distribution Width 13.5 % (11.5-14.5); White Blood Count 16.6 K/mcL (4.3-11.1)
[2022-04-10 06:49] LABS: BUN/Creatinine Ratio 18 (6-26); Blood Urea Nitrogen 11 mg/dL (8-23); Carbon Dioxide 32 mEq/L (23-29); Chloride 98 mEq/L (98-107); Potassium 3.5 mEq/L (3.5-5.1); Sodium 140 mEq/L (136-145); eGFR For African Americans > 60 (> 60)
[2022-04-10 06:50] LABS: Calcium 9.4 mg/dL (8.6-10.3); Glucose 174 mg/dL (70-105); Osmolality,Calculated 294 (280-300); Troponin I 0.04 ng/mL (< 0.04); eGFR For Non-African Americans > 60 (> 60)
[2022-04-10] MEDS ORDERED: traZODone 50 MG TABLET PO SCH (09:00)
[2022-04-10] MEDS: Azithromycin 500 MG in 0.9 % Sodium Chloride 250 ML IVPB SCH (09:14)
[2022-04-10] MEDS: Baclofen 10 MG TABLET PO SCH ×3 (09:17→20:06)
[2022-04-10] MEDS: amLODIPine 5 MG TABLET PO SCH ×2 (09:17→20:05)
[2022-04-10] MEDS: carvediloL 6.25 MG TABLET PO SCH ×3 (09:17→20:04)
[2022-04-10] MEDS: Ranolazine 500 MG TAB.ER.12H PO SCH ×2 (09:17→20:05)
[2022-04-10] MEDS: Aspirin 81 MG TAB.CHEW PO SCH (09:22)
[2022-04-10] MEDS: Loratadine 10 MG TABLET PO SCH (12:10)
[2022-04-10] MEDS: Pregabalin 75 MG CAPSULE PO SCH ×2 (12:10→20:06)
[2022-04-10] MEDS: MethylPREDNISolone 40 MG/ML VIAL IVP SCH ×2 (16:16→20:17)
[2022-04-10] MEDS: cefTRIAXone 1,000 MG in 0.9 % Sodium Chloride 10 ML IVP SCH (17:16)
[2022-04-10] MEDS: traZODone 50 MG TABLET PO SCH (20:06)
[2022-04-10] MEDS: Fluticasone Propionate Nasal 50 MCG/SPRAY BOTTLE NS SCH (20:06)
[2022-04-10] MEDS: LOSARTAN 25 MG PO SCH (20:06)
[2022-04-11] MEDS: Ipratropium/Albuterol Neb 3 ML IH SCH ×6 (04:15→23:38)
[2022-04-11 04:35] LABS: Basophils % 0.1 %; Hemoglobin 12.6 g/dL (11.5-15.4); Lymphocytes # 0.5 K/mcL (0.6-4.6); Lymphocytes % 3.5 %; Mean Corpuscular HGB Conc 32.3 g/dL (31.6-35.5); Mean Corpuscular Hemoglobin 30.1 pg (28.0-33.3); Mean Corpuscular Volume 93.3 fL (83.0-100.0); Monocytes # 0.4 K/mcL (0.0-1.3); Monocytes % 2.3 %; Neutrophils # 14.2 K/mcL (1.6-8.9); Platelet Count 387 K/mcL (140-400); Red Blood Count 4.18 M/mcL (3.82-4.97); Red Cell Distribution Width 13.4 % (11.5-14.5); Segmented Neutrophils % 93.1 %; White Blood Count 15.2 K/mcL (4.3-11.1)
[2022-04-11 04:53] LABS: BUN/Creatinine Ratio 28 (6-26); Blood Urea Nitrogen 16 mg/dL (8-23); Calcium 9.8 mg/dL (8.6-10.3); Carbon Dioxide 33 mEq/L (23-29); Chloride 99 mEq/L (98-107); Glucose 163 mg/dL (70-105); Osmolality,Calculated 295 (280-300); Potassium 3.7 mEq/L (3.5-5.1); Sodium 140 mEq/L (136-145); eGFR For African Americans > 60 (> 60); eGFR For Non-African Americans > 60 (> 60)
[2022-04-11] MEDS: MethylPREDNISolone 40 MG/ML VIAL IVP SCH ×3 (06:25→20:48)
[2022-04-11] MEDS: *HR* Heparin 5,000 UNIT/ML VIAL SQ SCH ×3 (06:25→20:48)
[2022-04-11] MEDS: Roflumilast [Daliresp] 500 MCG Tablet PO SCH (08:38)
[2022-04-11] MEDS: Fluticasone/Umeclidin/Vilanter [Trelegy Ellipta 200-62.5-25] IH SCH (08:38)
[2022-04-11] MEDS: Aspirin 81 MG TAB.CHEW PO SCH (08:38)
[2022-04-11] MEDS: Ranolazine 500 MG TAB.ER.12H PO SCH ×2 (09:01→20:47)
[2022-04-11] MEDS: Loratadine 10 MG TABLET PO SCH (09:01)
[2022-04-11] MEDS: Pregabalin 75 MG CAPSULE PO SCH ×2 (09:01→20:47)
[2022-04-11] MEDS: amLODIPine 5 MG TABLET PO SCH ×2 (09:01→20:47)
[2022-04-11] MEDS: Baclofen 10 MG TABLET PO SCH ×3 (09:01→20:47)
[2022-04-11] MEDS: carvediloL 6.25 MG TABLET PO SCH ×2 (09:01→20:46)
[2022-04-11] MEDS: Azithromycin 500 MG in 0.9 % Sodium Chloride 250 ML IVPB SCH (09:02)
[2022-04-11] MEDS: Fluticasone Propionate Nasal 50 MCG/SPRAY BOTTLE NS SCH ×2 (09:07→20:48)
[2022-04-11] MEDS ORDERED: Ketorolac 30 MG/ML VIAL IVP ONE (09:52)
[2022-04-11] MEDS ORDERED: *HR* Promethazine 25 MG/ML VIAL IM ONE (09:52)
[2022-04-11] MEDS: cefTRIAXone 1,000 MG in 0.9 % Sodium Chloride 10 ML IVP SCH (17:14)
[2022-04-11] MEDS: traZODone 50 MG TABLET PO SCH (20:46)
[2022-04-11] MEDS: LOSARTAN 25 MG PO SCH (20:47)
[2022-04-12] MEDS: Ipratropium/Albuterol Neb 3 ML IH SCH ×5 (03:49→20:28)
[2022-04-12] MEDS: MethylPREDNISolone 40 MG/ML VIAL IVP SCH ×2 (05:21→17:09)
[2022-04-12] MEDS: *HR* Heparin 5,000 UNIT/ML VIAL SQ SCH ×3 (05:21→22:30)
[2022-04-12 07:03] LABS: Basophils % 0.2 %; Hematocrit 38.8 % (35.3-44.9); Hemoglobin 12.4 g/dL (11.5-15.4); Immature Granulocytes % 1.5 % (0-4); Lymphocytes # 0.6 K/mcL (0.6-4.6); Lymphocytes % 4.8 %; Mean Corpuscular Hemoglobin 30.3 pg (28.0-33.3); Mean Corpuscular Volume 94.9 fL (83.0-100.0); Mean Platelet Volume 10.5 fL (9.4-12.4); Monocytes # 0.5 K/mcL (0.0-1.3); Monocytes % 3.8 %; Neutrophils # 11.6 K/mcL (1.6-8.9); Platelet Count 367 K/mcL (140-400); Red Blood Count 4.09 M/mcL (3.82-4.97); Red Cell Distribution Width 13.5 % (11.5-14.5); Segmented Neutrophils % 89.7 %
[2022-04-12 07:23] LABS: BUN/Creatinine Ratio 37 (6-26); Blood Urea Nitrogen 23 mg/dL (8-23); Calcium 9.4 mg/dL (8.6-10.3); Carbon Dioxide 33 mEq/L (23-29); Chloride 99 mEq/L (98-107); Glucose 174 mg/dL (70-105); Osmolality,Calculated 296 (280-300); Potassium 4.4 mEq/L (3.5-5.1); Sodium 139 mEq/L (136-145); eGFR For African Americans > 60 (> 60); eGFR For Non-African Americans > 60 (> 60)
[2022-04-12] MEDS: Ranolazine 500 MG TAB.ER.12H PO SCH ×2 (09:19→22:31)
[2022-04-12] MEDS: carvediloL 6.25 MG TABLET PO SCH ×2 (09:19→22:31)
[2022-04-12] MEDS: Baclofen 10 MG TABLET PO SCH ×3 (09:20→22:31)
[2022-04-12] MEDS: Pregabalin 75 MG CAPSULE PO SCH ×2 (09:20→22:31)
[2022-04-12] MEDS: Fluticasone Propionate Nasal 50 MCG/SPRAY BOTTLE NS SCH ×2 (09:20→22:39)
[2022-04-12] MEDS: amLODIPine 5 MG TABLET PO SCH ×2 (09:21→22:32)
[2022-04-12] MEDS: Loratadine 10 MG TABLET PO SCH (09:21)
[2022-04-12] MEDS: Fluticasone/Umeclidin/Vilanter [Trelegy Ellipta 200-62.5-25] IH SCH (09:21)
[2022-04-12] MEDS: Roflumilast [Daliresp] 500 MCG Tablet PO SCH (09:21)
[2022-04-12] MEDS: Aspirin 81 MG TAB.CHEW PO SCH (09:23)
[2022-04-12] MEDS: Azithromycin 500 MG in 0.9 % Sodium Chloride 250 ML IVPB SCH (09:24)
[2022-04-12] MEDS: hydrOXYzine pamoate 25 MG CAPSULE PO PRN (10:34)
[2022-04-12] MEDS: cefTRIAXone 1,000 MG in 0.9 % Sodium Chloride 10 ML IVP SCH (17:08)
[2022-04-12] MEDS: traZODone 50 MG TABLET PO SCH (22:36)
[2022-04-12] MEDS: LOSARTAN 25 MG PO SCH (22:36)
[2022-04-13] MEDS: Acetaminophen/Butalbital/CaffeineTABLET PO PRN ×2 (00:04→22:00)
[2022-04-13] MEDS: hydrOXYzine pamoate 25 MG CAPSULE PO PRN ×3 (00:04→22:00)
[2022-04-13] MEDS: Ipratropium/Albuterol Neb 3 ML IH SCH ×7 (00:07→23:36)
[2022-04-13] MEDS: Budesonide/Formoterol 160/4.5 1 PUFF INH IH SCH ×3 (00:07→19:55)
[2022-04-13] MEDS: *HR* Heparin 5,000 UNIT/ML VIAL SQ SCH ×3 (06:50→21:47)
[2022-04-13] MEDS: MethylPREDNISolone 40 MG/ML VIAL IVP SCH ×2 (06:50→18:03)
[2022-04-13 07:13] LABS: Basophils # 0.1 K/mcL (0.0-0.2); Basophils % 0.4 %; Hematocrit 38.3 % (35.3-44.9); Hemoglobin 12.2 g/dL (11.5-15.4); Immature Granulocytes % 3.7 % (0-4); Lymphocytes # 0.9 K/mcL (0.6-4.6); Lymphocytes % 7.8 %; Mean Corpuscular HGB Conc 31.9 g/dL (31.6-35.5); Mean Corpuscular Hemoglobin 30.1 pg (28.0-33.3); Mean Corpuscular Volume 94.6 fL (83.0-100.0); Mean Platelet Volume 10.3 fL (9.4-12.4); Monocytes % 8.1 %; Neutrophils # 9.4 K/mcL (1.6-8.9); Platelet Count 373 K/mcL (140-400); Red Blood Count 4.05 M/mcL (3.82-4.97); Red Cell Distribution Width 13.3 % (11.5-14.5); White Blood Count 11.7 K/mcL (4.3-11.1)
[2022-04-13] MEDS: Tiotropium 10 INH DOSE IH SCH (07:26)
[2022-04-13 07:32] LABS: BUN/Creatinine Ratio 33 (6-26); Blood Urea Nitrogen 20 mg/dL (8-23); Calcium 9.6 mg/dL (8.6-10.3); Carbon Dioxide 35 mEq/L (23-29); Chloride 97 mEq/L (98-107); Glucose 147 mg/dL (70-105); Osmolality,Calculated 293 (280-300); Potassium 4.1 mEq/L (3.5-5.1); Sodium 139 mEq/L (136-145); eGFR For African Americans > 60 (> 60); eGFR For Non-African Americans > 60 (> 60)
[2022-04-13] MEDS: Azithromycin 500 MG in 0.9 % Sodium Chloride 250 ML IVPB SCH (09:39)
[2022-04-13] MEDS: carvediloL 6.25 MG TABLET PO SCH ×2 (09:39→21:46)
[2022-04-13] MEDS: Ranolazine 500 MG TAB.ER.12H PO SCH ×2 (09:40→21:47)
[2022-04-13] MEDS: Pregabalin 75 MG CAPSULE PO SCH ×2 (09:40→21:46)
[2022-04-13] MEDS: amLODIPine 5 MG TABLET PO SCH ×2 (09:40→21:47)
[2022-04-13] MEDS: Baclofen 10 MG TABLET PO SCH ×3 (09:40→21:47)
[2022-04-13] MEDS: Loratadine 10 MG TABLET PO SCH (09:40)
[2022-04-13] MEDS: Fluticasone Propionate Nasal 50 MCG/SPRAY BOTTLE NS SCH (09:41)
[2022-04-13] MEDS: Roflumilast [Daliresp] 500 MCG Tablet PO SCH (09:41)
[2022-04-13] MEDS ORDERED: Menthol 1 EACH LOZENGE PO PRN (09:53)
[2022-04-13] MEDS: cefTRIAXone 1,000 MG in 0.9 % Sodium Chloride 10 ML IVP SCH (18:03)
[2022-04-13] MEDS: LOSARTAN 25 MG PO SCH (21:46)
[2022-04-13] MEDS: traZODone 50 MG TABLET PO SCH (21:47)
[2022-04-14] MEDS: Fluticasone Propionate Nasal 50 MCG/SPRAY BOTTLE NS SCH ×3 (01:33→21:35)
[2022-04-14] MEDS: Ipratropium/Albuterol Neb 3 ML IH SCH ×6 (03:59→23:26)
[2022-04-14] MEDS: *HR* Heparin 5,000 UNIT/ML VIAL SQ SCH ×3 (06:43→23:11)
[2022-04-14] MEDS: MethylPREDNISolone 40 MG/ML VIAL IVP SCH ×2 (06:43→17:01)
[2022-04-14] MEDS: Budesonide/Formoterol 160/4.5 1 PUFF INH IH SCH ×2 (07:36→20:00)
[2022-04-14 07:38] LABS: Basophils # 0.1 K/mcL (0.0-0.2); Basophils % 0.8 %; Hematocrit 41.3 % (35.3-44.9); Lymphocytes # 0.9 K/mcL (0.6-4.6); Lymphocytes % 6.5 %; Mean Corpuscular HGB Conc 31.5 g/dL (31.6-35.5); Mean Corpuscular Hemoglobin 29.7 pg (28.0-33.3); Mean Corpuscular Volume 94.5 fL (83.0-100.0); Mean Platelet Volume 10.6 fL (9.4-12.4); Monocytes % 7.4 %; Neutrophils # 10.7 K/mcL (1.6-8.9); Platelet Count 386 K/mcL (140-400); Red Blood Count 4.37 M/mcL (3.82-4.97); Red Cell Distribution Width 13.4 % (11.5-14.5); Segmented Neutrophils % 80.3 %; White Blood Count 13.3 K/mcL (4.3-11.1)
[2022-04-14 07:42] LABS: BUN/Creatinine Ratio 32 (6-26); Blood Urea Nitrogen 20 mg/dL (8-23); Calcium 9.5 mg/dL (8.6-10.3); Carbon Dioxide 35 mEq/L (23-29); Chloride 98 mEq/L (98-107); Glucose 131 mg/dL (70-105); Osmolality,Calculated 292 (280-300); Potassium 4.1 mEq/L (3.5-5.1); Sodium 139 mEq/L (136-145); eGFR For African Americans > 60 (> 60); eGFR For Non-African Americans > 60 (> 60)
[2022-04-14] MEDS: Ranolazine 500 MG TAB.ER.12H PO SCH ×2 (07:58→21:24)
[2022-04-14] MEDS: carvediloL 6.25 MG TABLET PO SCH ×2 (07:58→21:24)
[2022-04-14] MEDS: Pregabalin 75 MG CAPSULE PO SCH ×2 (07:58→21:24)
[2022-04-14] MEDS: amLODIPine 5 MG TABLET PO SCH ×2 (07:58→21:25)
[2022-04-14] MEDS: Baclofen 10 MG TABLET PO SCH ×3 (07:58→21:24)
[2022-04-14] MEDS: Loratadine 10 MG TABLET PO SCH (07:58)
[2022-04-14] MEDS: Acetaminophen/Butalbital/CaffeineTABLET PO PRN ×2 (08:02→21:30)
[2022-04-14] MEDS: hydrOXYzine pamoate 25 MG CAPSULE PO PRN ×2 (08:02→21:30)
[2022-04-14] MEDS: Roflumilast [Daliresp] 500 MCG Tablet PO SCH (08:03)
[2022-04-14] MEDS ORDERED: Ergocalciferol (VIT D2) 50,000 UNIT (1.25MG) CAP PO SCH ×2 (09:00→13:00)
[2022-04-14] MEDS: Tiotropium 10 INH DOSE IH SCH (11:08)
[2022-04-14] MEDS: traZODone 50 MG TABLET PO SCH (21:24)
[2022-04-14] MEDS: LOSARTAN 25 MG PO SCH (21:25)
[2022-04-15] MEDS: Ipratropium/Albuterol Neb 3 ML IH SCH ×5 (03:11→20:12)
[2022-04-15 03:39] LABS: Hematocrit 39.5 % (35.3-44.9); Hemoglobin 12.8 g/dL (11.5-15.4); Mean Corpuscular HGB Conc 32.4 g/dL (31.6-35.5); Mean Corpuscular Hemoglobin 30.1 pg (28.0-33.3); Mean Corpuscular Volume 92.9 fL (83.0-100.0); Mean Platelet Volume 10.7 fL (9.4-12.4); Platelet Count 372 K/mcL (140-400); Red Blood Count 4.25 M/mcL (3.82-4.97); Red Cell Distribution Width 13.4 % (11.5-14.5); White Blood Count 16.3 K/mcL (4.3-11.1)
[2022-04-15 04:00] LABS: BUN/Creatinine Ratio 27 (6-26); Blood Urea Nitrogen 20 mg/dL (8-23); Carbon Dioxide 30 mEq/L (23-29); Chloride 97 mEq/L (98-107); Glucose 246 mg/dL (70-105); Osmolality,Calculated 297 (280-300); Sodium 138 mEq/L (136-145); eGFR For African Americans > 60 (> 60); eGFR For Non-African Americans > 60 (> 60)
[2022-04-15 05:05] LABS: Lymphocytes # 1.6 K/mcL (0.6-4.6); Neutrophils # 13.7 K/mcL (1.6-8.9)
[2022-04-15 05:06] LABS: Platelet Estimate Normal (Normal)
[2022-04-15] MEDS: *HR* Heparin 5,000 UNIT/ML VIAL SQ SCH ×2 (05:09→14:06)
[2022-04-15] MEDS: MethylPREDNISolone 40 MG/ML VIAL IVP SCH ×2 (05:10→17:26)
[2022-04-15] MEDS: Tiotropium 10 INH DOSE IH SCH (07:33)
[2022-04-15] MEDS: Budesonide/Formoterol 160/4.5 1 PUFF INH IH SCH ×2 (07:33→20:12)
[2022-04-15] MEDS: Pregabalin 75 MG CAPSULE PO SCH ×2 (08:52→21:39)
[2022-04-15] MEDS: Fluticasone Propionate Nasal 50 MCG/SPRAY BOTTLE NS SCH ×2 (08:52→23:28)
[2022-04-15] MEDS: Baclofen 10 MG TABLET PO SCH ×3 (08:52→21:39)
[2022-04-15] MEDS: Roflumilast [Daliresp] 500 MCG Tablet PO SCH (08:52)
[2022-04-15] MEDS: Loratadine 10 MG TABLET PO SCH (08:52)
[2022-04-15] MEDS: carvediloL 6.25 MG TABLET PO SCH ×2 (08:52→21:39)
[2022-04-15] MEDS: Ranolazine 500 MG TAB.ER.12H PO SCH ×2 (08:52→21:38)
[2022-04-15] MEDS: amLODIPine 5 MG TABLET PO SCH ×2 (08:52→21:38)
[2022-04-15] MEDS: Acetaminophen/Butalbital/CaffeineTABLET PO PRN (08:58)
[2022-04-15] MEDS: hydrOXYzine pamoate 25 MG CAPSULE PO PRN ×2 (08:59→21:48)
[2022-04-15] MEDS ORDERED: polyethylene glycoL 3350 17 GM POWD.PACK PO PRN (17:31)
[2022-04-15] MEDS ORDERED: *HR* HYDROcodone/Acet 5/325 mg TABLET PO ONE (21:25)
[2022-04-15] MEDS: LOSARTAN 25 MG PO SCH (21:38)
[2022-04-15] MEDS: traZODone 50 MG TABLET PO SCH (21:39)
[2022-04-16] MEDS: *HR* Heparin 5,000 UNIT/ML VIAL SQ SCH ×4 (03:29→20:32)
[2022-04-16] MEDS: Ipratropium/Albuterol Neb 3 ML IH SCH ×7 (04:03→23:31)
[2022-04-16] MEDS: Budesonide/Formoterol 160/4.5 1 PUFF INH IH SCH ×2 (07:43→19:58)
[2022-04-16] MEDS: Tiotropium 10 INH DOSE IH SCH (07:44)
[2022-04-16] MEDS: amLODIPine 5 MG TABLET PO SCH ×2 (08:03→20:32)
[2022-04-16] MEDS: Loratadine 10 MG TABLET PO SCH (08:03)
[2022-04-16] MEDS: Baclofen 10 MG TABLET PO SCH ×3 (08:03→20:31)
[2022-04-16] MEDS: Ranolazine 500 MG TAB.ER.12H PO SCH ×2 (08:03→20:31)
[2022-04-16] MEDS: predniSONE 20 MG TABLET PO SCH (08:04)
[2022-04-16] MEDS: Pregabalin 75 MG CAPSULE PO SCH ×2 (08:04→20:32)
[2022-04-16] MEDS: carvediloL 6.25 MG TABLET PO SCH ×2 (08:04→20:31)
[2022-04-16] MEDS: Roflumilast [Daliresp] 500 MCG Tablet PO SCH (08:05)
[2022-04-16] MEDS: Fluticasone Propionate Nasal 50 MCG/SPRAY BOTTLE NS SCH ×2 (08:05→20:34)
[2022-04-16] MEDS: hydrOXYzine pamoate 25 MG CAPSULE PO PRN (08:11)
[2022-04-16] MEDS: Acetaminophen/Butalbital/CaffeineTABLET PO PRN (08:11)
[2022-04-16] MEDS: LOSARTAN 25 MG PO SCH (20:30)
[2022-04-16] MEDS: traZODone 50 MG TABLET PO SCH (20:31)
[2022-04-17] MEDS: Acetaminophen/Butalbital/CaffeineTABLET PO PRN ×2 (00:01→19:48)
[2022-04-17] MEDS: Ipratropium/Albuterol Neb 3 ML IH SCH ×6 (03:48→23:48)
[2022-04-17] MEDS: *HR* Heparin 5,000 UNIT/ML VIAL SQ SCH ×3 (05:07→22:33)
[2022-04-17] MEDS: Budesonide/Formoterol 160/4.5 1 PUFF INH IH SCH ×2 (07:42→19:48)
[2022-04-17] MEDS: Tiotropium 10 INH DOSE IH SCH (07:44)
[2022-04-17] MEDS: carvediloL 6.25 MG TABLET PO SCH ×2 (07:57→19:47)
[2022-04-17] MEDS: hydrOXYzine pamoate 25 MG CAPSULE PO PRN ×2 (07:57→16:26)
[2022-04-17] MEDS: Ranolazine 500 MG TAB.ER.12H PO SCH ×2 (07:58→19:47)
[2022-04-17] MEDS: amLODIPine 5 MG TABLET PO SCH ×2 (07:58→19:47)
[2022-04-17] MEDS: Roflumilast [Daliresp] 500 MCG Tablet PO SCH (07:58)
[2022-04-17] MEDS: Pregabalin 75 MG CAPSULE PO SCH ×2 (07:58→19:48)
[2022-04-17] MEDS: predniSONE 20 MG TABLET PO SCH (07:58)
[2022-04-17] MEDS: Baclofen 10 MG TABLET PO SCH ×3 (07:58→19:48)
[2022-04-17] MEDS: Loratadine 10 MG TABLET PO SCH (07:58)
[2022-04-17] MEDS: Fluticasone Propionate Nasal 50 MCG/SPRAY BOTTLE NS SCH ×2 (08:00→19:49)
[2022-04-17] MEDS: LOSARTAN 25 MG PO SCH (19:47)
[2022-04-17] MEDS: traZODone 50 MG TABLET PO SCH (19:48)
[2022-04-18 02:36] LABS: Hematocrit 40.9 % (35.3-44.9); Hemoglobin 12.8 g/dL (11.5-15.4); Mean Corpuscular HGB Conc 31.3 g/dL (31.6-35.5); Mean Corpuscular Hemoglobin 29.9 pg (28.0-33.3); Mean Corpuscular Volume 95.6 fL (83.0-100.0); Mean Platelet Volume 10.3 fL (9.4-12.4); Nucleated Red Blood Cells 0.1 /100 WBC (0); Platelet Count 385 K/mcL (140-400); Red Blood Count 4.28 M/mcL (3.82-4.97); Red Cell Distribution Width 14.4 % (11.5-14.5); White Blood Count 19.5 K/mcL (4.3-11.1)
[2022-04-18 02:54] LABS: BUN/Creatinine Ratio 24 (6-26); Blood Urea Nitrogen 20 mg/dL (8-23); Calcium 9.1 mg/dL (8.6-10.3); Carbon Dioxide 33 mEq/L (23-29); Chloride 97 mEq/L (98-107); Glucose 168 mg/dL (70-105); Osmolality,Calculated 292 (280-300); Potassium 3.6 mEq/L (3.5-5.1); Sodium 138 mEq/L (136-145); eGFR For African Americans > 60 (> 60); eGFR For Non-African Americans > 60 (> 60)
[2022-04-18 03:10] LABS: Lymphocytes # 3.9 K/mcL (0.6-4.6); Monocytes # 0.4 K/mcL (0.0-1.3); Neutrophils # 15.2 K/mcL (1.6-8.9); Platelet Estimate Normal (Normal)
[2022-04-18] MEDS: hydrOXYzine pamoate 25 MG CAPSULE PO PRN (03:30)
[2022-04-18] MEDS: Ipratropium/Albuterol Neb 3 ML IH SCH ×3 (03:47→11:16)
[2022-04-18] MEDS: *HR* Heparin 5,000 UNIT/ML VIAL SQ SCH (05:22)
[2022-04-18] MEDS: amLODIPine 5 MG TABLET PO SCH (07:23)
[2022-04-18] MEDS: predniSONE 20 MG TABLET PO SCH (07:23)
[2022-04-18] MEDS: carvediloL 6.25 MG TABLET PO SCH (07:23)
[2022-04-18] MEDS: Loratadine 10 MG TABLET PO SCH (07:23)
[2022-04-18] MEDS: Baclofen 10 MG TABLET PO SCH (07:23)
[2022-04-18] MEDS: Ranolazine 500 MG TAB.ER.12H PO SCH (07:24)
[2022-04-18] MEDS: Roflumilast [Daliresp] 500 MCG Tablet PO SCH (07:24)
[2022-04-18] MEDS: Pregabalin 75 MG CAPSULE PO SCH (07:24)
[2022-04-18] MEDS: Fluticasone Propionate Nasal 50 MCG/SPRAY BOTTLE NS SCH (07:27)
[2022-04-18] MEDS: Budesonide/Formoterol 160/4.5 1 PUFF INH IH SCH (07:33)
[2022-04-18] MEDS: Tiotropium 10 INH DOSE IH SCH (07:33)
[2022-04-18 07:58] VITALS: BP 132/67; PULSE 75; TEMP 98.2
[2022-04-18 11:57] VITALS: O2SAT 91
== END 2022-04-18 14:17 | disposition home health service (06) | DRG 871 ==
LOC: EMEROOARM 18:47 → 2ANU 18:47 → SUATTDRO 04-10 01:39 → 2ANU 04-10 02:52 → SUATTDRO 04-11 13:10
PROVIDERS: ADMIT Internal Medicine; ATTEND Internal Medicine